=== PATIENT | female | born 1935 | race Caucasian/White ===

== ENCOUNTER 2018-10-21 06:06 | Inpatient (IN) | payer MEDICARE, SELFPAY ==
[2018-10-06 08:32] VITALS: BMI 27.5
[2018-10-21] VITALS (17 sets, daily range): BP systolic 100–141; BP diastolic 39–68; PULSE 62–86; RESP 8–21; TEMP 36.1–36.9; O2SAT 93–100; BMI 27.5
--- NOTE | 2018-10-21 | DI.RAD.S_ITS ---
PROCEDURE: XR LUMBAR SPINE 2-3V INDICATIONS: L1-L5 XLIF, L5-S1 TLIF TECHNIQUE: 4 intraoperative fluoroscopic views of the lumbar spine were acquired. COMPARISON: None. FINDINGS: Intraoperative fluoroscopic images of lumbar spine shows intervertebral spacer is present at L2-3, L3-4 and L4-5 levels. There is a metallic intervertebral spacer placement at L5-S1 level. Left transpedicular screws are noted at L5-S1 level. IMPRESSION: Fluoroscopy guidance was provided intraoperatively for fusion of lumbar spine as above. Dictated by: Jonah Barton M.D. on 10/21/2018 at 12:43 Approved by: Jonah Barton M.D. on 10/21/2018 at 12:44
[2018-10-21] MEDS: LACTATED RINGERS 1,000 ML 42 ML IV ×2 (06:45→10:07)
--- NOTE | 2018-10-21 07:33 | PM.PREOP ---
Pre-operative Note Interval Note Pre-op Check: Yes History & Physical Reviewed by Physician and Yes Exam Performed Changes: No
[2018-10-21] MEDS: CEFAZOLIN 2 GM/100 ML FROZ.PIGGY IV ×3 (07:55→21:50)
[2018-10-21] MEDS: GENTAMICIN 80 MG in SODIUM CHLORIDE 0.9% 1,000 ML 12024 MG IRR (08:30)
--- NOTE | 2018-10-21 08:41 | SUR.OPER ---
Left lateral on padded OR table. Head on pillow, gel axillary roll, pillow to support right arm. Legs flexed, pillows between legs, gel pad under down leg and ankle. Multiple passes of 3 inch cloth tape across shoulder, hip, upper and lower legs to secure patient on OR table.
[2018-10-21] MEDS: SODIUM CHLORIDE 0.9% 1,000 ML, GENTAMICIN 80 MG IRR (08:52)
[2018-10-21] MEDS: ACETAMINOPHEN IV 1,000 MG/100 ML VIAL 400 MG IV (11:01)
[2018-10-21] MEDS: THROMBIN (BOVINE) 5,000 UNIT VIAL 5000 UNIT TOP (11:24)
[2018-10-21] MEDS: BUPIVACAINE 0.5% (PF) 4 ML, MORPHINE-PF 4 MG, BUTORPHANOL 1 MG, fentaNYL 100 MCG INJ (11:25)
[2018-10-21] MEDS: VANCOMYCIN 1,000 MG VIAL 1000 MG TOP (11:25)
--- NOTE | 2018-10-21 12:16 | PM.OP.1 ---
Operative Date/Time/Diagnoses Date of procedure: 10/21/18 Time of procedure: 12:24 Pre-op diagnosis: Lumbar stenosis with radiculopathy Lumbar scoliosis Post-op diagnosis: same Procedure & Clinicians Procedure: L1-2, L2-3, L3-4, L4-5 anterior fusion with cages L5-S1 TLIF (post/post innerbody fusion) with cage icbg microscope Placement of epidural catheter Same procedure as scheduled: Yes Indications: [age] year old female with intractable pain from stenosis and scoliosis. They had failed conservative management and requested operative intervention. Risks and benefits of surgery were discussed and appropriate consents were obtained. Surgeon: Timbo Goldberg Climate Change Risk Assessor: Radha Burgess Anesthesia Type: General Operative Notes Findings: none Closure Type: primary Specimen(s): none sent Implants & Drains: NuVasive XLIF cages NuVasive Reline MAS screws Globus Rise cage Applied: catheter Estimated Blood Loss (mL): 50 Blood products transfused: none Procedure in detail: Patient was brought to the operating room and intubated on the table. Time-out was performed. They were then rolled over to the lateral decubitus position with the [id number]. The table was bent and they were taped down in the correct position. X-rays were taken to confirm a true AP and lateral. Preoperative antibiotics were given. The right flank was prepped and draped in standard sterile fashion. Using fluoroscopy, a 3 cm incision was made above the iliac crest. We bluntly dissected down with Metzenbaum scissors and split the 3 abdominal muscle layers. We dissected out the retroperitoneal space and using finger guidance, brought our 1st dilator down to the psoas muscle. Using neuromonitoring and fluoroscopy, we placed it through the psoas onto the L4-5 disc space in an anterior position and gradually pulled the dilator posteriorly along the disc space. We placed our guidewire and measured our depth for the retractor. We then dilated with the next 2 dilators and then placed our retractor over the dilators. Position was confirmed with fluoroscopy and the retractor was locked down to the bar. We opened up the retractor and checked with neuro monitoring. We then placed the ella and again checked with neuro monitoring. The retractor was opened further and the ALL retractor was placed. An annulotomy was performed. We then performed a complete diskectomy with ring curette, pituitary, box osteotome. A Hayward was advanced across the disc space under fluoroscopy to release the lateral annulus on the opposite side. We then used sequentially larger trials and confirmed under fluoroscopy. An XLIF cage was packed with Osteocell bone graft and impacted into the L4-5 disc space with fluoroscopy for the anterior fusion at this level. The wound was irrigated. The retractor was closed down. The ella was removed. We carefully removed the retractor with direct visualization to make sure there was no neurovascular or abdominal injury. We then sequentially did the same procedure at L3-4, L2-3, and L1-2. We used monitoring and fluoroscopy to place our dilator, opened up the retractor, performed our lateral release, trialed, and placed our cages full of bone graft for the anterior fusion at L1-2, L2-3, L3-4. We carefully removed the retractor with direct visualization after each procedure. Final x-rays were taken. The muscle fascia was closed, superficial tissue was closed. The skin was closed. Sterile dressing was placed. The patient was then rolled over on the well-padded prone position on the Nicolas table. Using fluoroscopy for localization, a 4 cm incision was made to the left of the midline. Bovie used to come down to and split the fascia. We then used monitoring and fluoroscopy to percutaneously placed Jamshidi needles down the left pedicles of L5 and S1. These were switched to guidewires and then tapped and then the MAS Reline screws were placed. We opened up the retractor and cleared off medially as well as the posterolateral gutter. The bur was used to decorticate the sacral ala and the L5 transverse process. We then brought the microscope. A combination of bur and Kerrisons were used to perform a left-sided laminectomy at L5-S1. We had to do a complete facetectomy to be able to open up the neural foramen. At the end the central canal and the foramen were open. We then began the prep for the interbody work. Nerve root retractor was used to carefully retract the dura and the S1 nerve root. Bipolar was used for hemostasis. We performed an annulotomy. We then used a combination of paddles, Christos, pituitaries, and curettes performed a complete diskectomy at L5-S1. We placed Osteocel bone graft into the anterior disc space. We then measured and placed the globus Rise cage and expanded it under fluoroscopy. This completed the posterior innerbody portion of the TLIF. The wound was copiously irrigated. A small stab incision was made over the PSIS and a Jamshidi needle was placed into the iliac crest and several mL of bone marrow was aspirated. This was mixed with our locally harvested bone graft as well as the remaining Osteocell and placed in the posterolateral gutter for posterolateral portion of the TLIF fusion at L5-S1. An epidural catheter was primed with 4mL of 0.5% bupivacaine, 100 mcg fentanyl, 4 mg Duramorph, 1 mg Stadol. The dura was depressed under the cephalad lamina with a ball probe and the epidural catheter was gently advanced 6 cm cephalad. The fascia was then closed. The epidural was then injected without resistance. The catheter was pulled and we closed more over the fascia. Vancomycin powder was placed in the wound. The superficial and skin were closed. Sterile dressing was placed. The patient was then rolled over, extubated, brought to the recovery room with no complications. Complications: none Condition: stable Disposition: PACU Plan for aftercare: Inpatient. Up with physical therapy. Plan to return in 2 days for the posterior instrumentation and fusion.
[2018-10-21] MEDS: ONDANSETRON 4 MG/2 ML INJ IV ×2 (13:03→16:15)
[2018-10-21] MEDS: fentaNYL 100 MCG/2 ML INJ 50 MCG IV ×2 (13:03→13:09)
[2018-10-21] MEDS: HYDROMORPHONE 2 MG INJ 0.5 MG IV ×3 (13:17→13:37)
[2018-10-21] MEDS: LACTATED RINGERS 1,000 ML 125 ML IV ×2 (14:48→22:06)
--- NOTE | 2018-10-21 14:51 | CM.DANOTE ---
DCP: Case received, EMR reviewed and met with patient. Introduced self and role. DCP template completed with information currently available. Patient is an 82 year old female who admitted early this morning to the care of the hospitalist team. PCP: Dr. Silva. Payer: confirmed: Medicare/[employer] Patient came to hospital for procedure. Is having two surgeries. Just had stage 1, L1-5 fusion. Will have state 2, T10-S1 fusion on . Met with patient briefly, just got out of recovery room, post surgery. Pleasant. Daughter, KIRA Angel, in room. Her phone number is [phone]. Her cell is [phone]. Patient does live at home with her spouse, but he was not in room. According to daughter, patient has been independent at home, no cane or walker. Patient lives in [facility], daughter lives in [facility]. P: DCP to follow closely. To be determined if patient may need long-term, will depend on progress here in hospital. Heather Keen RN/[employer]
--- NOTE | 2018-10-21 15:02 | PC.NURSE ---
Pt drowsy, but easily aroused and appropriate. Rates pain to back 4/10. Able to wiggle toes. SCD's on. C/O nausea, no emesis. Bed alarm placed.
--- NOTE | 2018-10-21 15:12 | PT.IPTN ---
Current Diagnoses Scoliosis, unspecified (10/21/18) Spinal stenosis, lumbar region with neurogenic claudication (10/21/18) Surgery Performed Operation Date: 10/21/18 07:45 Actual Procedures p L1-2, L2-3, L3-4, L4-5 Anterior Instrumented Fusion, L5-S1 Posterior Instrumented Fusion w/ Bone Graft - Timbo Goldberg MD Operation Date: 10/23/18 07:45 <No data on this case meets the specified criteria> Physical Therapy Treatment Note M3 PT-IP Subjective Start: 10/21/18 15:09 Freq: NEEDED Status: Active Protocol: Document 10/21/18 15:11 AB (Rec: 10/21/18 15:12 AB [id number]) Subjective Physical Therapy Visit Type Type Patient Refusal Notes checked on pt and daughter also present. pt stated that she is not ready for therapy; that therapy is the last thing she wants to do right now. daughter stated that the doctor told pt's that she will start therapy today and not today. will f/u tomorrow.
[2018-10-21] MEDS: OXYCODONE/ACETAMINOPHEN 5/325 TABLET 1 TAB PO (17:22)
[2018-10-21] MEDS: hydrOXYzine pamoate 25 MG CAPSULE PO (19:10)
[2018-10-21] MEDS: METOCLOPRAMIDE 10 MG/2 ML INJ IV (19:10)
[2018-10-21] MEDS: HYDROMORPHONE 0.5 MG INJ IV ×2 (19:14→22:04)
[2018-10-21] MEDS: GABAPENTIN 300 MG CAPSULE PO (21:50)
[2018-10-21] MEDS: CELECOXIB 200 MG CAPSULE PO (21:50)
--- NOTE | 2018-10-21 23:20 | PC.NURSE ---
Post-op VS are stable tonight, 1L O2 saturation 95-100% depending on activity, using IS to 1250. Dozing at times, rates pain to back at 7 or 8, medicated with 1 tab Percocet earlier tonight, she then tried to eat a few bites of dinner & a vanilla pudding & had emesis shortly after. After that patient medicated with Reglan, one Vistaril and Dilaudid 0.5 mg IV. Since then she has been observed dozing more comfortably, still reports intermittent waves of nausea. She told this nurse that she has had projectile vomiting a long time ago after receiving Morphine. Repositioned q1-2 hours per request, logrolling technique and other post-op back surgery precautions explained. Fall precautions in place, patient legally blind but able to see nurse call button and has been calling appropriately. Requests door be left open, signage placed on door.
[2018-10-22] VITALS (8 sets, daily range): BP systolic 99–129; BP diastolic 39–70; PULSE 92–104; RESP 16–21; TEMP 36.4–37.1; O2SAT 95–100
[2018-10-22] MEDS: hydrOXYzine pamoate 25 MG CAPSULE PO ×2 (00:04→12:38)
[2018-10-22] MEDS: HYDROMORPHONE 0.5 MG INJ IV ×2 (00:08→02:57)
[2018-10-22] MEDS: METOCLOPRAMIDE 10 MG/2 ML INJ IV (00:25)
[2018-10-22] MEDS: CEFAZOLIN 2 GM/100 ML FROZ.PIGGY IV (03:01)
[2018-10-22 06:06] LABS: Hematocrit 34.6 % (36-46); Hemoglobin 11.5 g/dL (12.0-16.0)
[2018-10-22] MEDS: LACTATED RINGERS 1,000 ML 125 ML IV (06:26)
--- NOTE | 2018-10-22 08:10 | PM.PNPO.1 ---
Subjective Date Patient Seen: 10/22/18 Time Patient Seen: 08:10 Interval history: Rough night but now pain minimal at rest. Exam Vital Signs (past 8 hours): - 10/22/18 00:30 10/22/18 01:00 10/22/18 06:15 Temperature 97.5 F L 97.6 F Pulse Rate 92 H 97 H Respiratory Rate 17 16 Blood Pressure 129/54 L 107/49 L Pulse Oximetry 100 97 97 Oxygen Delivery Method Room Air Oxygen Flow Rate 0 Const Orientation: alert and oriented x3 Back/Spine/Pelvis Other: CDI 5/5 motor BLE except 4/5 R hip flexor Objective Labs Result Diagrams: 10/22/18 05:43 Labs: Laboratory Results - last 24 hr 10/22/18 05:43 Hgb 11.5 L Hct 34.6 L Assessment & Plan Post-op Postoperative Procedures Operation Date: 10/21/18 07:45 Actual Procedures Side Surgeon p L1-2, L2-3, L3-4, L4-5 Anterior Instrumented Fusion, L5-S1 Posterior Instrumented Fusion w/ Bone Graft Timbo Goldberg MD She is stable after stage I of surgery. Mobilize today. Return to OR tomorrow for posterior instrumented fusion. NPO after MN. Risks and benefits again discussed and consent signed. Operation Date: 10/23/18 07:45 <No data on this case meets the specified criteria> Quality VTE Deep Vein Thrombosis/Pulmonary Embolism Present on Admission: No
[2018-10-22] MEDS: OXYCODONE/ACETAMINOPHEN 5/325 TABLET 1 TAB PO ×3 (10:00→20:40)
[2018-10-22] MEDS: CELECOXIB 200 MG CAPSULE PO ×2 (10:02→20:41)
[2018-10-22] MEDS: DOCUSATE 100 MG CAPSULE PO ×2 (10:02→20:41)
[2018-10-22] MEDS: LISINOPRIL 10 MG TABLET PO (10:03)
[2018-10-22] MEDS: hydroCHLOROthiazide 12.5 MG CAPSULE PO (10:03)
--- NOTE | 2018-10-22 11:35 | OT.IP.TRT ---
Addendum entered and electronically signed by Ananya Encinas OT 10/22/18 13:20: Correction: second stage of pt's surgery to be done 10/23/18 not 11/02/18. Original Note: Current Diagnoses Scoliosis, unspecified (10/21/18) Spinal stenosis, lumbar region with neurogenic claudication (10/21/18) Surgery Performed Operation Date: 10/21/18 07:45 Actual Procedures p L1-2, L2-3, L3-4, L4-5 Anterior Instrumented Fusion, L5-S1 Posterior Instrumented Fusion w/ Bone Graft - Timbo Goldberg MD Operation Date: 10/23/18 07:45 <No data on this case meets the specified criteria> Occupational Therapy Treatment Note M3 OT- IP Subjective and Pain Start: 10/22/18 11:39 Freq: Status: Active Protocol: Document 10/22/18 11:39 PJM (Rec: 10/22/18 11:47 [id number]) OT- Subjective Occupational Therapy Visit Type Type Administrative Note Visit Start Time 11:35 Notes OT referral received on this 82 yr old pt admitted for 2 stage multi-level lumbar surgery. Pt had anterior portion done yesterday. Will hold OT eval until after second stage of surgery completed on 11/02/18. No charge.
--- NOTE | 2018-10-22 13:09 | PT.IIE ---
Current Diagnoses Scoliosis, unspecified (10/21/18) Spinal stenosis, lumbar region with neurogenic claudication (10/21/18) Surgery Performed Operation Date: 10/21/18 07:45 Actual Procedures p L1-2, L2-3, L3-4, L4-5 Anterior Instrumented Fusion, L5-S1 Posterior Instrumented Fusion w/ Bone Graft - Timbo Goldberg MD Operation Date: 10/23/18 07:45 <No data on this case meets the specified criteria> Surgical History (Last Updated 10/06/18 @ 09:10 by Kindra Light RN) H/O knee surgery (Acute) H/O knee surgery (Acute) History of appendectomy (Acute) History of bunionectomy of left great toe (Acute) Medical History (Last Updated 10/06/18 @ 09:31 by Kindra Light RN) Back pain (Acute) Cataract fragments in both eyes following surgery (Acute ~1999) Chest pain (Acute) Colon cancer (Acute ~2008) DDD (degenerative disc disease) (Acute) DJD (degenerative joint disease) (Acute) Diarrhea (Acute) Esophageal dysmotility (Acute ~03/2007) Eye anomaly, congenital (Acute) Fatigue (Acute) Fractures (Acute ~03/2008) GERD (gastroesophageal reflux disease) (Acute) Globus hystericus (Acute) Hip pain (Acute) History of UTI (Acute) History of hysterectomy (Acute) Hypertension (Acute) IBS (irritable bowel syndrome) (Acute) Knee pain, left (Acute) Legally blind (Acute) Osteoarthritis (Acute) PVC (premature ventricular contraction) (Acute) Sciatica (Acute) Scoliosis of lumbar spine (Acute) Spinal stenosis of lumbar region with neurogenic claudication (Acute) Physical Therapy Inpatient Evaluation/Re-Eval M1 PT/OT-IP Prior Functional Status Start: 10/21/18 15:09 Freq: NEEDED Status: Active Protocol: Document 10/22/18 12:53 (Rec: 10/22/18 13:05 [id number]) Medical Review Prior Functional Status Medical History Reviewed Yes Mobility and Gait Independent without AD Activities of Daily Living and IADL's Independent without AD Required assistance from for house cleaning due to chronic LBP Social History Household Members spouse Living Arrangements House Number of Floors (Floors) Two Floors Number of Stairs To Enter/Railing? no steps to enter Home Environment Standard Height Toilet Walk in Shower Home Equipment Front Wheel Walker Employment Status Retired Additional Social History Comment Pt was active prior to surgery . 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[place] [id number] PT-IP Current Condition Start: 10/21/18 15:09 Freq: NEEDED Status: Active Protocol: Document 10/22/18 12:53 HH (Rec: 10/22/18 13:05 [id number]) Physical Therapy Current Condition Current Condition Evaluation Date 10/22/18 Treatment Diagnosis s/p L1-2, L2-3, L3-4, L4-5 anterior fusion with cages Onset Date 10/21/18 Precautions Lumbar Precautions Log Roll No Twisting Limit Bending Lifting Restriction of 10 lbs M3 PT-IP Subjective Start: 10/21/18 15:09 Freq: NEEDED Status: Active Protocol: Document 10/22/18 10:00 HH (Rec: 10/22/18 11:34 [id number]) Subjective Physical Therapy Visit Type Type Initial Evaluation Visit Start Time 10:00 Visit Stop Time 10:50 Total Visit Minutes 50 Physical Therapy Visit Comments Patient Comments Pt c/o R abdominal pain around surgical site 03/27 & L LBP . Pt reports she feels drowsy and dizzy this morning. Pt has not been getting OOB since Sx yesterday. Patient Goals To be pain free for ADLs and IADLs Return to be a dance class teacher Therapy Pain Assessment Pain When Pain Assessed At Rest Pain Present Pain Present Pain Reported Location Right Lower Abdomen Intensity 5 Scale Used Numeric (1 - 10) Description Dull Back Intensity 4 Scale Used Numeric (1 - 10) Description Dull M4 PT-IP Mobility and Gait Start: 10/21/18 15:09 Freq: NEEDED Status: Active Protocol: Document 10/22/18 10:00 HH (Rec: 10/22/18 11:34 [id number]) PT-Bed Mobility Assessment Rolling Type of Rolling Log Rolling Bilateral Level of Assist Minimal Assistance Supine to Sit Supine to Sit Moderate Assistance Sit to Supine Sit to Supine Moderate Assistance Scooting Scooting to Edge of Bed Minimal Assistance Scooting Up and Down in Bed Minimal Assistance PT-Transfer Assessment Sit to and From Stand Sit to and from Stand Minimal Assistance Equipment Transfer Assistive Device Front Wheeled Walker Transfers Transfer Destination Bed Transfer Ability Level of Assist Minimal Assistance Comments Mobility Comments Pt reports weakness at her R LE > L LE. Pt requests to rest after standing for 30 secs. Gait Assessment Comments Gait Comments Pt did not amb this morning due to weakness and LBP. Pt was able to maintain static standing for ~30secs but she then requested to sit down due to fatigue. Stair Climbing Assessment Comments Stair Climbing Comments Pt did not amb this morning due to fatigue and weakness PT-Balance Assessment Sitting Balance and Reactions Static Sitting Balance Ability Good Dynamic Sitting Balance Ability Good Standing Balance and Reactions Static Standing Balance Ability Fair Dynamic Standing Balance Ability Poor M5 PT-IP Objective Assessments Start: 10/21/18 15:09 Freq: NEEDED Status: Active Protocol: Document 10/22/18 10:00 (Rec: 10/22/18 11:34 [id number]) Orientation Orientation/Cognition Level of Alertness Alert Orientation Name Age Birthday Month Date Year Day of Week Place Situation Language Function Ability No Deficits Noted Safety Awareness Understands Safety Issues Gross Range of Motion Upper Extremity ROM Assessment Within Functional Limits Lower Extremity ROM Assessment Right Impaired Impairments Post op precaution: BLT Strength Upper Extremity Strength Assessment Within Functional Limits Lower Extremity Strength Assessment Right Impaired Comments Strength Comments 2- for gross R LE MMT Coordination Assessment Gross Coordination Gross Coordination WNL Sensation Assessment Sensation Gross Sensation WNL Comments Sensation Comments Pt reports no senstional differences for LT and pressure to BLE M6 PT-IP Treatment Start: 10/21/18 15:09 Freq: NEEDED Status: Active Protocol: Document 10/22/18 10:00 (Rec: 10/22/18 11:34 [id number]) Physical Therapy Treatment Exercises Exercises Ankle Pumps Gluteal Sets Quad Sets Heel Slides Supine Hip Abduction Education Education Provided Precautions Safety Other Treatments Other Treatment Performed Log roll to L and R with min A supine to sit and sit to supine with mod A sit to stand x 1 with min A M7 PT-IP Assessment and Plan Start: 10/21/18 15:09 Freq: NEEDED Status: Active Protocol: Document 10/22/18 10:00 (Rec: 10/22/18 11:34 [id number]) PT Summary Assessment and Plan Potential Rehabilitation Potential Good Status of Condition at Evaluation Evolving Summary Impairments Pain ROM Strength Balance Bed Mobility Transfers Gait Activity Tolerance Assessment Summary Pt is a 82 yo female s/p L1-2, L2-3, L3-4, L4-5 anterior fusion with cages on 10/21/18 due to Lumbar stenosis with radiculopathy & Lumbar scoliosis. Pt was also scheduled to receive Pt was seen bedside today with her . Pt is A&O x 4. Pt c/o L LBP 4/10 and R abdominal pain 5/10 today. Pt was pleasant and motivated to reach back to PLOF. Upon assessment, Pt was able to perform B ankle pumps and full heel slide on L LE and 1/2 heel slide on R LE in supine. BP in supine = 104/50 HR 104. Pt and her were educated post op precautions ( BLT). Log roll was then performed with min A; supine to sit with mod A to EOB. Pt reports increased LBP to 6-7/ 10 in sitting. She was then instructed to perform sit to stand with the use FWW with min A. Pt was able to maintain standing position x 30 secs but she then requested to rest due to R LE weakness. Pt Pt did not amb this morning due to weakness and LBP. Pt was able to maintain static standing for ~30secs but she then requested to sit down due to fatigue. Pt appeared nervous and worried after due to I feel weak and I know this sx is going to be tough. Pt's BP= 162/93 HR= 187. Pt was then instructed to sit to supine followed by diaphragmatic breathing. BP went back to baseline 111/70 SC=863 after 5mins. Pt was then educated with in bed therex including ankle pumps, quads set, heel slides and supine hip abduction. Pt was able to perform full heel slide on R side after tx session. Communicated with HARRIS Spence regarding Pt's BP during tx session. Recommended to reposition pt and sit EOB every 2 hours to avoid pressure ulcer with the use of log roll. Pt potentially requires longer rehab due to 2nd posterior fusion sx tomorrow. Recommend SNF, home care with 24/7 or home health depends on pt's rehab progress . Goals Bed Mobility Goal Independent Transfer Goal Independent Front Wheeled Walker Gait Goal Independent Front Wheel Walker Gait Distance >100 feet Days to Meet Goals 10 Frequency of Treatment Frequency Of Treatment Twice a Day Treatment Plan Physical Therapy Treatment Plan Bed Mobility Training Transfer Training Gait Training Therapeutic Exercise Balance Retraining Post Op Education Discharge Planning Hot or Cold Pack Neuromuscular Re-ed Manual Therapy Other Recommendations and Next Treatment Monitor BP in positional Focus changes Ice pad for pain management log roll and supine to sit sit to stand at EOB heel raise diaphragmatic breathing in standing Recommendations To Nursing Amount of Assist Needed 2 Person Assist Discharge Recommendations PT Discharge Recommendations Home with 24/ Assist Home Health SNF Rehab Other Discharge Recommendations D/C recommendation depends on pt's rehab progress and pt's capability to assit at home for ADLs and IADLs. Pt currently has significant generalized weakness for transfer and bed mobility due to post op and prolonged bed bound. Equipment Needed for Home Before 4 WW, SPC Discharge
--- NOTE | 2018-10-22 16:03 | PC.NURSE ---
Day Shift- Jo removed at 1015 without difficulty, voided X2 on bedpan post removal. OOB with PT, reported by PT, pt was standing at bedside, felt weak, BP elevated 160's/90s, pt got back to bed. Bedrest with use of bedpan for now until PT reassess. Percocet prn 1 tab given X2 for 3-6/10 pain, aching to left lower back and aching/sharpness to RLQ abd/flank. Pain controlled, Aware of NPO after might night for stage 2 surgery.
--- NOTE | 2018-10-22 16:14 | PT.IPTN ---
Current Diagnoses Scoliosis, unspecified (10/21/18) Spinal stenosis, lumbar region with neurogenic claudication (10/21/18) Surgery Performed Operation Date: 10/21/18 07:45 Actual Procedures p L1-2, L2-3, L3-4, L4-5 Anterior Instrumented Fusion, L5-S1 Posterior Instrumented Fusion w/ Bone Graft - Timbo Goldberg MD Operation Date: 10/23/18 07:45 <No data on this case meets the specified criteria> Physical Therapy Treatment Note M2 PT-IP Current Condition Start: 10/21/18 15:09 Freq: NEEDED Status: Active Protocol: Document 10/22/18 12:53 HH (Rec: 10/22/18 13:05 [id number]) Physical Therapy Current Condition Current Condition Evaluation Date 10/22/18 Treatment Diagnosis s/p L1-2, L2-3, L3-4, L4-5 anterior fusion with cages Onset Date 10/21/18 Precautions Lumbar Precautions Log Roll No Twisting Limit Bending Lifting Restriction of 10 lbs M3 PT-IP Subjective Start: 10/21/18 15:09 Freq: NEEDED Status: Active Protocol: Document 10/22/18 16:05 GGD (Rec: 10/22/18 16:14 GGD [id number]) Subjective Physical Therapy Visit Type Type Treatment Note Visit Start Time 15:40 Visit Stop Time 16:05 Total Visit Minutes 25 Number of UX CONSULTANT Visits 1 Therapy Pain Assessment Pain When Pain Assessed At Rest Pain Present Pain Present Pain Reported Location Back Intensity 4 Scale Used Numeric (1 - 10) M4 PT-IP Mobility and Gait Start: 10/21/18 15:09 Freq: NEEDED Status: Active Protocol: Document 10/22/18 16:05 GGD (Rec: 10/22/18 16:14 GGD [id number]) PT-Bed Mobility Assessment Rolling Type of Rolling Log Rolling Roll to Right Level of Assist Minimal Assistance Supine to Sit Supine to Sit Moderate Assistance 1 Person Assistance Sit to Supine Sit to Supine Maximum Assistance 1 Person Assistance Scooting Scooting to Edge of Bed Minimal Assistance PT-Transfer Assessment Sit to and From Stand Sit to and from Stand Contact Guard Assistance Use of Upper Extremities Equipment Transfer Assistive Device Gait Belt Front Wheeled Walker Orthotic/Prosthetic Devices or Brace: No Transfers Transfer Destination Bed Transfer Ability Level of Assist Moderate Assistance Comments Mobility Comments BP in supine 99/39, sitting 108/53, standing 103/39, supine after activity 123/60 Gait Assessment Gait Gait Assistance Required: Minimum Assistance 1 Person Assist Distance (Feet) 5 Able to Maintain Weight Bearing Status Yes During Gait Assistive Devices Assistive Device Gait Belt Front Wheeled Walker Orthotic/Prosthetic Devices or Brace: No Gait Deviations General Gait Pattern Decreased Stride Length Decreased Feet Clearance Flexed Trunk Factors Limiting Gait Function Factors Limiting Gait Function Decreased Activity Tolerance Decreased Strength Pain Poor Balance M5 PT-IP Objective Assessments Start: 10/21/18 15:09 Freq: NEEDED Status: Active Protocol: Document 10/22/18 10:00 (Rec: 10/22/18 11:34 [id number]) Orientation Orientation/Cognition Level of Alertness Alert Orientation Name Age Birthday Month Date Year Day of Week Place Situation Language Function Ability No Deficits Noted Safety Awareness Understands Safety Issues Gross Range of Motion Upper Extremity ROM Assessment Within Functional Limits Lower Extremity ROM Assessment Right Impaired Impairments Post op precaution: BLT Strength Upper Extremity Strength Assessment Within Functional Limits Lower Extremity Strength Assessment Right Impaired Comments Strength Comments 2- for gross R LE MMT Coordination Assessment Gross Coordination Gross Coordination WNL Sensation Assessment Sensation Gross Sensation WNL Comments Sensation Comments Pt reports no senstional differences for LT and pressure to BLE M6 PT-IP Treatment Start: 10/21/18 15:09 Freq: NEEDED Status: Active Protocol: Document 10/22/18 16:05 GGD (Rec: 10/22/18 16:14 GGD [id number]) Physical Therapy Treatment Education Education Provided Precautions M7 PT-IP Assessment and Plan Start: 10/21/18 15:09 Freq: NEEDED Status: Active Protocol: Document 10/22/18 16:05 GGD (Rec: 10/22/18 16:14 GGD [id number]) PT Summary Assessment and Plan Summary Assessment Summary Pt is progressing slowly. She was able to ambulate short distance, but C/O leg weakness . She did need assist with bed mobility for log roll. Frequency of Treatment Frequency Of Treatment Twice a Day Recommendations To Nursing Amount of Assist Needed 1 Person Assist Discharge Recommendations PT Discharge Recommendations Home with 24/ Assist SNF Rehab
[2018-10-22] MEDS: GABAPENTIN 300 MG CAPSULE PO (20:41)
[2018-10-22] MEDS: SENNOSIDES 8.6 MG TABLET 17.2 MG PO (20:41)
[2018-10-23] VITALS (23 sets, daily range): BP systolic 101–162; BP diastolic 31–80; PULSE 75–156; RESP 10–18; TEMP 36.1–36.8; O2SAT 92–100; BMI 27.5
--- NOTE | 2018-10-23 | DI.RAD.S_ITS ---
PROCEDURE: XR LUMBAR SPINE 2-3V INDICATIONS: T-10 THRU S-1 TLIF TECHNIQUE: 6 views of the lumbar spine were acquired. COMPARISON: [facility], , XR LUMBAR SPINE 2-3V, 10/21/2018, 8:16. FINDINGS: 6 intraoperative fluoroscopy images were obtained demonstrating posterior fusion at T10-S1. Previous hysterectomy at L2-L3, L3-L4, L4-L5 and L5-S1. Pedicular screws and fusion rods are in expected position. IMPRESSION: Posterior fusion at T10-S1. Dictated by: Ayah Ortega M.D. on 10/23/2018 at 11:56 Approved by: Ayah Ortega M.D. on 10/23/2018 at 12:00
[2018-10-23] MEDS: OXYCODONE/ACETAMINOPHEN 5/325 TABLET 1 TAB PO ×2 (00:38→05:02)
--- NOTE | 2018-10-23 07:35 | PM.PREOP ---
Pre-operative Note Interval Note Pre-op Check: Yes History & Physical Reviewed by Physician and Yes Exam Performed Changes: No
[2018-10-23] MEDS: LACTATED RINGERS 1,000 ML 42 ML IV (07:37)
--- NOTE | 2018-10-23 07:39 | P.OP_ITS ---
Operative Date/Time/Diagnoses Date of procedure: 10/23/18 Time of procedure: 11:28 Pre-op diagnosis: Lumbar stenosis with radiculopathy Lumbar scoliosis Post-op diagnosis: same Procedure & Clinicians Procedure: T10 through S1 posterior fusion T10 through S1 posterior instrumentation Iliac crest bone graft placement of epidural catheter Same procedure as scheduled: Yes Indications: 82-year-old female with scoliosis and stenosis. She had stage I of her surgery 2 days ago and is returning for stage II today. Risks and benefits of surgery discussed appropriate consents were obtained. Surgeon: Timbo Goldberg Stacker Straightener: Radha Burgess Anesthesia Type: General Operative Notes Findings: None Closure Type: primary Specimen(s): none sent Implants & Drains: NuVasive MAS Reline screws Applied: catheter Estimated Blood Loss (mL): 100 Procedure in detail: Patient was brought to the operating room and intubated on the stretcher. The rolled over to the well-padded prone position on the Nicolas table. A time-out was performed. Antibiotics were given. Back was prepped and draped in the standard sterile fashion. Using fluoroscopy for localization, two 40 cm incisions were made on each side of the midline. Bovie used to come down to and split the fascia. We then percutaneously placed Jamshidi needles down the bilateral pedicles of T10 through S1 (except at the previously placed L5 and S1 on the left) using fluoroscopy and neural monitoring. We changed these out to guidewires. We dissected down through the soft tissue on the left side to expose the posterolateral gutter with transverse processes through the lumbar spine as well as the posterior aspect of the thoracic spine. We used a bur to decorticate the facets and posterior lamina and transverse processes. This completed the preparation for the fusion. We then placed our screws over the guidewires. We then took our rods and conformed them. They were placed into the screws and tightened down after using spreaders on the left side to open the curve. The towers were removed and final x-rays were taken. The wounds were irrigated. A small stab incision was made over the left PSIS and Jamshidi needle was inserted into the iliac crest. 10 mL of bone marrow was aspirated through this. This was then mixed with Osteocell and bone chips and placed in the posterior and posterolateral gutter for the posterior fusion from T10 to S1. At L5-S1 on the left, we opened up down to the dura again. An epidural catheter was primed with 4 mg of morphine, 1 mg stable, 4 mL of 0.5% Marcaine and 100 mcg of fentanyl. This was advanced up underneath the L4 lamina. We then closed off all fascial layers. The epidural was injected without resistance and then removed. The superficial tissues closed then the skin was closed. Sterile dressings were placed. She was then rolled over, extubated, and brought to recovery room without complications. Complications: none Condition: stable Disposition: PACU Plan for aftercare: Inpatient. Up with physical therapy.
[2018-10-23] MEDS: CEFAZOLIN VIAL 1 GM in SODIUM CHLORIDE 0.9% 100 ML 200 ML IV (08:00)
--- NOTE | 2018-10-23 08:30 | OT.IP.TRT ---
Current Diagnoses Scoliosis, unspecified (10/21/18) Spinal stenosis, lumbar region with neurogenic claudication (10/21/18) Surgery Performed Operation Date: 10/21/18 07:45 Actual Procedures p L1-2, L2-3, L3-4, L4-5 Anterior Instrumented Fusion, L5-S1 Posterior Instrumented Fusion w/ Bone Graft - Timbo Goldberg MD Operation Date: 10/23/18 07:45 Actual Procedures p T10-L1,L1-2,L2-3,L3-4,L4-5, L5-S1 Posterior Instru. Fusion w/bone graft - Timbo Goldberg MD Occupational Therapy Treatment Note M3 OT- IP Subjective and Pain Start: 10/22/18 11:39 Freq: Status: Active Protocol: Document 10/23/18 08:30 PJM (Rec: 10/24/18 12:21 PJM [id number]) OT- Subjective Occupational Therapy Visit Type Type Administrative Note Occupational Therapy Visit Comments Patient Comments Pt to surgery today for second stage of lumbar fusion. Will await post op OT orders. No charge.
--- NOTE | 2018-10-23 08:39 | SUR.OPER ---
Prone on spine table, head in foam head support, padded chest and pelvic supports, gel pad at knees, lower legs supported by pillows; nipples, genitalia and toes free of pressure, arms secured on foam padded arm boards at <90 degrees abduction. Tape over blanket at thigh and lower legs secured to table.
--- NOTE | 2018-10-23 09:00 | PT.IPTN ---
Current Diagnoses Scoliosis, unspecified (10/21/18) Spinal stenosis, lumbar region with neurogenic claudication (10/21/18) Surgery Performed Operation Date: 10/21/18 07:45 Actual Procedures p L1-2, L2-3, L3-4, L4-5 Anterior Instrumented Fusion, L5-S1 Posterior Instrumented Fusion w/ Bone Graft - Timbo Goldberg MD Operation Date: 10/23/18 07:45 Actual Procedures p T10-L1,L1-2,L2-3,L3-4,L4-5, L5-S1 Posterior Instru. Fusion w/bone graft - Timbo Goldberg MD Physical Therapy Treatment Note M2 PT-IP Current Condition Start: 10/21/18 15:09 Freq: NEEDED Status: Active Protocol: Document 10/22/18 12:53 HH (Rec: 10/22/18 13:05 HH [id number]) Physical Therapy Current Condition Current Condition Evaluation Date 10/22/18 Treatment Diagnosis s/p L1-2, L2-3, L3-4, L4-5 anterior fusion with cages Onset Date 10/21/18 Precautions Lumbar Precautions Log Roll No Twisting Limit Bending Lifting Restriction of 10 lbs M3 PT-IP Subjective Start: 10/21/18 15:09 Freq: NEEDED Status: Active Protocol: Document 10/23/18 09:00 AB (Rec: 10/24/18 12:22 AB [id number]) Subjective Physical Therapy Visit Type Notes pt is having her part 2 back surgery this morning. PT tx on hold. M4 PT-IP Mobility and Gait Start: 10/21/18 15:09 Freq: NEEDED Status: Active Protocol: Document 10/22/18 16:05 GGD (Rec: 10/22/18 16:14 GGD [id number]) PT-Bed Mobility Assessment Rolling Type of Rolling Log Rolling Roll to Right Level of Assist Minimal Assistance Supine to Sit Supine to Sit Moderate Assistance 1 Person Assistance Sit to Supine Sit to Supine Maximum Assistance 1 Person Assistance Scooting Scooting to Edge of Bed Minimal Assistance PT-Transfer Assessment Sit to and From Stand Sit to and from Stand Contact Guard Assistance Use of Upper Extremities Equipment Transfer Assistive Device Gait Belt Front Wheeled Walker Orthotic/Prosthetic Devices or Brace: No Transfers Transfer Destination Bed Transfer Ability Level of Assist Moderate Assistance Comments Mobility Comments BP in supine 99/39, sitting 108/53, standing 103/39, supine after activity 123/60 Gait Assessment Gait Gait Assistance Required: Minimum Assistance 1 Person Assist Distance (Feet) 5 Able to Maintain Weight Bearing Status Yes During Gait Assistive Devices Assistive Device Gait Belt Front Wheeled Walker Orthotic/Prosthetic Devices or Brace: No Gait Deviations General Gait Pattern Decreased Stride Length Decreased Feet Clearance Flexed Trunk Factors Limiting Gait Function Factors Limiting Gait Function Decreased Activity Tolerance Decreased Strength Pain Poor Balance M5 PT-IP Objective Assessments Start: 10/21/18 15:09 Freq: NEEDED Status: Active Protocol: Document 10/22/18 10:00 (Rec: 10/22/18 11:34 [id number]) Orientation Orientation/Cognition Level of Alertness Alert Orientation Name Age Birthday Month Date Year Day of Week Place Situation Language Function Ability No Deficits Noted Safety Awareness Understands Safety Issues Gross Range of Motion Upper Extremity ROM Assessment Within Functional Limits Lower Extremity ROM Assessment Right Impaired Impairments Post op precaution: BLT Strength Upper Extremity Strength Assessment Within Functional Limits Lower Extremity Strength Assessment Right Impaired Comments Strength Comments 2- for gross R LE MMT Coordination Assessment Gross Coordination Gross Coordination WNL Sensation Assessment Sensation Gross Sensation WNL Comments Sensation Comments Pt reports no senstional differences for LT and pressure to BLE M6 PT-IP Treatment Start: 10/21/18 15:09 Freq: NEEDED Status: Active Protocol: Document 10/22/18 16:05 GGD (Rec: 10/22/18 16:14 GGD [id number]) Physical Therapy Treatment Education Education Provided Precautions M7 PT-IP Assessment and Plan Start: 10/21/18 15:09 Freq: NEEDED Status: Active Protocol: Document 10/22/18 16:05 GGD (Rec: 10/22/18 16:14 GGD [id number]) PT Summary Assessment and Plan Summary Assessment Summary Pt is progressing slowly. She was able to ambulate short distance, but C/O leg weakness . She did need assist with bed mobility for log roll. Frequency of Treatment Frequency Of Treatment Twice a Day Recommendations To Nursing Amount of Assist Needed 1 Person Assist Discharge Recommendations PT Discharge Recommendations Home with 24/ Assist SNF Rehab
[2018-10-23] MEDS: LACTATED RINGERS 1,000 ML 125 ML IV ×3 (09:31→22:23)
[2018-10-23] MEDS: SODIUM CHLORIDE 0.9% 1,000 ML, GENTAMICIN 80 MG IRR (09:35)
[2018-10-23] MEDS: BUPIVACAINE 0.5% (PF) 4 ML, MORPHINE-PF 4 MG, BUTORPHANOL 1 MG, fentaNYL 100 MCG INJ (10:57)
[2018-10-23] MEDS: VANCOMYCIN 1,000 MG VIAL 1000 MG TOP (11:00)
[2018-10-23] MEDS: ONDANSETRON 4 MG/2 ML INJ IV (11:55)
[2018-10-23] MEDS: fentaNYL 100 MCG/2 ML INJ 50 MCG IV (11:55)
[2018-10-23] MEDS: HYDROMORPHONE 2 MG INJ 0.5 MG IV (12:00)
[2018-10-23] MEDS: LORazepam 2 MG/ML SYRINGE 0.25 MG IV (12:10)
--- NOTE | 2018-10-23 12:13 | SUR.PHASEI ---
assumed care of pt at 1212 after receiving report from Anastasia Santoro RN.
[2018-10-23] MEDS: METOCLOPRAMIDE 10 MG/2 ML INJ IV (13:51)
[2018-10-23] MEDS: HYDROMORPHONE 1 MG INJ 0.2 MG IV ×2 (13:51→17:47)
[2018-10-23] MEDS: METOPROLOL TARTRATE 5 MG/5 ML INJ IV (14:46)
--- NOTE | 2018-10-23 15:02 | DI.RAD.S_ITS ---
PROCEDURE: XR CHEST 1V INDICATIONS: Superventricular tachycardia, post operative TECHNIQUE: One view of the chest was acquired. COMPARISON: [facility], CT, CT CHEST ABD PELVIS W CON, 10/05/2016, 9:47. FINDINGS: Surgical changes and devices: Postoperative changes are identified related to a thoracolumbar fusion. Skin flavio are noted. Lungs and pleura: There is increased attenuation identified at the bilateral lung bases with partial obscuration of the left diaphragm. No pneumothorax is evident. The perihilar pulmonary vascular markings are mildly increased. Mediastinum: Mediastinal contours appear normal. The heart is borderline enlarged. There is aortic atherosclerosis. Bones and chest wall: No suspicious bony lesions. Overlying soft tissues appear unremarkable. IMPRESSION: 1. Borderline cardiomegaly with mild vascular congestion. 2. Left basilar atelectasis versus small effusion. Dictated by: Brannon Tariq M.D. on 10/23/2018 at 14:30 Approved by: Brannon Tariq M.D. on 10/23/2018 at 14:31
[2018-10-23 15:31] LABS: Add Manual Diff / Slide Review NO; Basophils Percent Auto 0.1 % (0-2); Hematocrit 33.1 % (36-46); Lymphocytes Percent Auto 2.2 % (25-40); Mean Corpuscular HGB Conc 33.3 % (30-36); Mean Corpuscular Hemoglobin 30.5 PG (26-34); Mean Corpuscular Volume 91.5 fL (80-100); Neutrophils Absolute Auto 8700 /uL (3000-5900); Neutrophils Percent Auto 93.7 % (50-75); Platelet Count 143 X10^3/uL (150-400); Red Blood Cell Count 3.62 X10^6/uL (4.0-5.2); Red Cell Distribution Width 14.2 % (11.6-14.8); White Blood Cell Count 9.3 X10^3/uL (4.5-11.0)
[2018-10-23 15:43] LABS: Blood Urea Nitrogen 11 mg/dL (7-17); Calcium 8.3 mg/dL (8.4-10.2); Carbon Dioxide 28 mmol/L (22-32); Chloride 107 mmol/L (98-107); Creatine Kinase 1064 U/L (30-135); Estimated Glomerular Filt Rate > 60.0 mL/min (>60); Glucose 154 mg/dL (80-110); HEMOLYSIS < 15 (0-50); Magnesium 1.8 mg/dL (1.6-2.3); Phosphorous 3.3 mg/dL (2.8-4.1); Potassium 3.7 mmol/L (3.4-5.1); Sodium 141 mmol/L (137-145)
[2018-10-23 15:54] LABS: Troponin I 0.094 ng/mL (0.01-0.034)
--- NOTE | 2018-10-23 15:54 | PT.IIE ---
Current Diagnoses Scoliosis, unspecified (10/21/18) Spinal stenosis, lumbar region with neurogenic claudication (10/21/18) Surgery Performed Operation Date: 10/21/18 07:45 Actual Procedures p L1-2, L2-3, L3-4, L4-5 Anterior Instrumented Fusion, L5-S1 Posterior Instrumented Fusion w/ Bone Graft - Timbo Goldberg MD Operation Date: 10/23/18 07:45 Actual Procedures p T10-L1,L1-2,L2-3,L3-4,L4-5, L5-S1 Posterior Instru. Fusion w/bone graft - Timbo Goldberg MD Surgical History (Last Updated 10/06/18 @ 09:10 by Kindra Light, RN) H/O knee surgery (Acute) H/O knee surgery (Acute) History of appendectomy (Acute) History of bunionectomy of left great toe (Acute) Medical History (Last Updated 10/06/18 @ 09:31 by Kindra Light, RN) Back pain (Acute) Cataract fragments in both eyes following surgery (Acute ~1999) Chest pain (Acute) Colon cancer (Acute ~2008) DDD (degenerative disc disease) (Acute) DJD (degenerative joint disease) (Acute) Diarrhea (Acute) Esophageal dysmotility (Acute ~03/2007) Eye anomaly, congenital (Acute) Fatigue (Acute) Fractures (Acute ~03/2008) GERD (gastroesophageal reflux disease) (Acute) Globus hystericus (Acute) Hip pain (Acute) History of UTI (Acute) History of hysterectomy (Acute) Hypertension (Acute) IBS (irritable bowel syndrome) (Acute) Knee pain, left (Acute) Legally blind (Acute) Osteoarthritis (Acute) PVC (premature ventricular contraction) (Acute) Sciatica (Acute) Scoliosis of lumbar spine (Acute) Spinal stenosis of lumbar region with neurogenic claudication (Acute) Physical Therapy Inpatient Evaluation/Re-Eval M1 PT/OT-IP Prior Functional Status Start: 10/21/18 15:09 Freq: NEEDED Status: Active Protocol: Document 10/22/18 12:53 (Rec: 10/22/18 13:05 [id number]) Medical Review Prior Functional Status Medical History Reviewed Yes Mobility and Gait Independent without AD Activities of Daily Living and IADL's Independent without AD Required assistance from for house cleaning due to chronic LBP Social History Household Members spouse Living Arrangements House Number of Floors (Floors) Two Floors Number of Stairs To Enter/Railing? no steps to enter Home Environment Standard Height Toilet Walk in Shower Home Equipment Front Wheel Walker Employment Status Retired Additional Social History Comment Pt was active prior to surgery . 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[place] [address] PT-IP Current Condition Start: 10/21/18 15:09 Freq: NEEDED Status: Active Protocol: Document 10/22/18 12:53 (Rec: 10/22/18 13:05 [id number]) Physical Therapy Current Condition Current Condition Evaluation Date 10/22/18 Treatment Diagnosis s/p L1-2, L2-3, L3-4, L4-5 anterior fusion with cages Onset Date 10/21/18 Precautions Lumbar Precautions Log Roll No Twisting Limit Bending Lifting Restriction of 10 lbs M3 PT-IP Subjective Start: 10/21/18 15:09 Freq: NEEDED Status: Active Protocol: Document 10/22/18 16:05 GGD (Rec: 10/22/18 16:14 GGD [id number]) Subjective Physical Therapy Visit Type Type Treatment Note Visit Start Time 15:40 Visit Stop Time 16:05 Total Visit Minutes 25 Number of THERAPEUTIC CONSULTANT Visits 1 Therapy Pain Assessment Pain When Pain Assessed At Rest Pain Present Pain Present Pain Reported Location Back Intensity 4 Scale Used Numeric (1 - 10) M4 PT-IP Mobility and Gait Start: 10/21/18 15:09 Freq: NEEDED Status: Active Protocol: Document 10/22/18 16:05 GGD (Rec: 10/22/18 16:14 GGD [id number]) PT-Bed Mobility Assessment Rolling Type of Rolling Log Rolling Roll to Right Level of Assist Minimal Assistance Supine to Sit Supine to Sit Moderate Assistance 1 Person Assistance Sit to Supine Sit to Supine Maximum Assistance 1 Person Assistance Scooting Scooting to Edge of Bed Minimal Assistance PT-Transfer Assessment Sit to and From Stand Sit to and from Stand Contact Guard Assistance Use of Upper Extremities Equipment Transfer Assistive Device Gait Belt Front Wheeled Walker Orthotic/Prosthetic Devices or Brace: No Transfers Transfer Destination Bed Transfer Ability Level of Assist Moderate Assistance Comments Mobility Comments BP in supine 99/39, sitting 108/53, standing 103/39, supine after activity 123/60 Gait Assessment Gait Gait Assistance Required: Minimum Assistance 1 Person Assist Distance (Feet) 5 Able to Maintain Weight Bearing Status Yes During Gait Assistive Devices Assistive Device Gait Belt Front Wheeled Walker Orthotic/Prosthetic Devices or Brace: No Gait Deviations General Gait Pattern Decreased Stride Length Decreased Feet Clearance Flexed Trunk Factors Limiting Gait Function Factors Limiting Gait Function Decreased Activity Tolerance Decreased Strength Pain Poor Balance M5 PT-IP Objective Assessments Start: 10/21/18 15:09 Freq: NEEDED Status: Active Protocol: Document 10/22/18 10:00 HH (Rec: 10/22/18 11:34 HH [id number]) Orientation Orientation/Cognition Level of Alertness Alert Orientation Name Age Birthday Month Date Year Day of Week Place Situation Language Function Ability No Deficits Noted Safety Awareness Understands Safety Issues Gross Range of Motion Upper Extremity ROM Assessment Within Functional Limits Lower Extremity ROM Assessment Right Impaired Impairments Post op precaution: BLT Strength Upper Extremity Strength Assessment Within Functional Limits Lower Extremity Strength Assessment Right Impaired Comments Strength Comments 2- for gross R LE MMT Coordination Assessment Gross Coordination Gross Coordination WNL Sensation Assessment Sensation Gross Sensation WNL Comments Sensation Comments Pt reports no senstional differences for LT and pressure to BLE M6 PT-IP Treatment Start: 10/21/18 15:09 Freq: NEEDED Status: Active Protocol: Document 10/22/18 16:05 GGD (Rec: 10/22/18 16:14 GGD [id number]) Physical Therapy Treatment Education Education Provided Precautions M7 PT-IP Assessment and Plan Start: 10/21/18 15:09 Freq: NEEDED Status: Active Protocol: Document 10/22/18 16:05 GGD (Rec: 10/22/18 16:14 GGD [id number]) PT Summary Assessment and Plan Summary Assessment Summary Pt is progressing slowly. She was able to ambulate short distance, but C/O leg weakness . She did need assist with bed mobility for log roll. Frequency of Treatment Frequency Of Treatment Twice a Day Recommendations To Nursing Amount of Assist Needed 1 Person Assist Discharge Recommendations PT Discharge Recommendations Home with / Assist SNF Rehab
[2018-10-23 15:56] LABS: Lactate (Lactic Acid) 1.1 mmol/L (0.7-2.1)
[2018-10-23 15:57] LABS: CKMB % Relative Index 1.1 % (1.5-5.0)
--- NOTE | 2018-10-23 16:00 | PT.IPTN ---
Current Diagnoses Scoliosis, unspecified (10/21/18) Spinal stenosis, lumbar region with neurogenic claudication (10/21/18) Surgery Performed Operation Date: 10/21/18 07:45 Actual Procedures p L1-2, L2-3, L3-4, L4-5 Anterior Instrumented Fusion, L5-S1 Posterior Instrumented Fusion w/ Bone Graft - Timbo Goldberg MD Operation Date: 10/23/18 07:45 Actual Procedures p T10-L1,L1-2,L2-3,L3-4,L4-5, L5-S1 Posterior Instru. Fusion w/bone graft - Timbo Goldberg MD Physical Therapy Treatment Note M2 PT-IP Current Condition Start: 10/21/18 15:09 Freq: NEEDED Status: Active Protocol: Document 10/22/18 12:53 HH (Rec: 10/22/18 13:05 HH [id number]) Physical Therapy Current Condition Current Condition Evaluation Date 10/22/18 Treatment Diagnosis s/p L1-2, L2-3, L3-4, L4-5 anterior fusion with cages Onset Date 10/21/18 Precautions Lumbar Precautions Log Roll No Twisting Limit Bending Lifting Restriction of 10 lbs M3 PT-IP Subjective Start: 10/21/18 15:09 Freq: NEEDED Status: Active Protocol: Document 10/23/18 16:00 AB (Rec: 10/24/18 12:24 AB [id number]) Subjective Physical Therapy Visit Type Notes Pt got back from surgery but per nurse is having heart rate issues and will be transferring to the ICU. Pt tx on hold M4 PT-IP Mobility and Gait Start: 10/21/18 15:09 Freq: NEEDED Status: Active Protocol: Document 10/22/18 16:05 GGD (Rec: 10/22/18 16:14 GGD [id number]) PT-Bed Mobility Assessment Rolling Type of Rolling Log Rolling Roll to Right Level of Assist Minimal Assistance Supine to Sit Supine to Sit Moderate Assistance 1 Person Assistance Sit to Supine Sit to Supine Maximum Assistance 1 Person Assistance Scooting Scooting to Edge of Bed Minimal Assistance PT-Transfer Assessment Sit to and From Stand Sit to and from Stand Contact Guard Assistance Use of Upper Extremities Equipment Transfer Assistive Device Gait Belt Front Wheeled Walker Orthotic/Prosthetic Devices or Brace: No Transfers Transfer Destination Bed Transfer Ability Level of Assist Moderate Assistance Comments Mobility Comments BP in supine 99/39, sitting 108/53, standing 103/39, supine after activity 123/60 Gait Assessment Gait Gait Assistance Required: Minimum Assistance 1 Person Assist Distance (Feet) 5 Able to Maintain Weight Bearing Status Yes During Gait Assistive Devices Assistive Device Gait Belt Front Wheeled Walker Orthotic/Prosthetic Devices or Brace: No Gait Deviations General Gait Pattern Decreased Stride Length Decreased Feet Clearance Flexed Trunk Factors Limiting Gait Function Factors Limiting Gait Function Decreased Activity Tolerance Decreased Strength Pain Poor Balance M5 PT-IP Objective Assessments Start: 10/21/18 15:09 Freq: NEEDED Status: Active Protocol: Document 10/22/18 10:00 HH (Rec: 10/22/18 11:34 [id number]) Orientation Orientation/Cognition Level of Alertness Alert Orientation Name Age Birthday Month Date Year Day of Week Place Situation Language Function Ability No Deficits Noted Safety Awareness Understands Safety Issues Gross Range of Motion Upper Extremity ROM Assessment Within Functional Limits Lower Extremity ROM Assessment Right Impaired Impairments Post op precaution: BLT Strength Upper Extremity Strength Assessment Within Functional Limits Lower Extremity Strength Assessment Right Impaired Comments Strength Comments 2- for gross R LE MMT Coordination Assessment Gross Coordination Gross Coordination WNL Sensation Assessment Sensation Gross Sensation WNL Comments Sensation Comments Pt reports no senstional differences for LT and pressure to BLE M6 PT-IP Treatment Start: 10/21/18 15:09 Freq: NEEDED Status: Active Protocol: Document 10/22/18 16:05 GGD (Rec: 10/22/18 16:14 GGD [id number]) Physical Therapy Treatment Education Education Provided Precautions M7 PT-IP Assessment and Plan Start: 10/21/18 15:09 Freq: NEEDED Status: Active Protocol: Document 10/22/18 16:05 GGD (Rec: 10/22/18 16:14 GGD [id number]) PT Summary Assessment and Plan Summary Assessment Summary Pt is progressing slowly. She was able to ambulate short distance, but C/O leg weakness . She did need assist with bed mobility for log roll. Frequency of Treatment Frequency Of Treatment Twice a Day Recommendations To Nursing Amount of Assist Needed 1 Person Assist Discharge Recommendations PT Discharge Recommendations Home with 10/06 Assist SNF Rehab
--- NOTE | 2018-10-23 16:17 | PC.NURSE ---
Day Shift-Report rec'd from COLLEGE SCOUTING COORDINATOR at 1233 on current pt status. Pt arrived to unit at 1250 via bed. Pt's and daughter in room. Upon arrival to unit post op, pt's first vital sign reading was HR of 85bpm, within 1-2 mins after, HR increased to 150's. Upon auscultation, HR 138 and regular. Pt reported being 4/10 pain to back surgery area. Lethargic, arousable, O2 sat 97% on 2L NC, does close eyes when asking questions. Then awakens and answers questions, does show signs of confusion as to where she is and what happened/situation currently. Message faxed to surgery regarding increased HR at 1340. Reglan and Dilaudid 0.2mg IV given at 1350. Spoke with ALVA Gasca at 1430 regarding tachycardia sustaining between 140'2 to high 150's and regular. New order rec'd to place pt on telemetry and PA will order Metoprolol IV. EKG was obtained and SVT was identified by ALVA Gasca Telemetry placed on pt at bedside, Metoprolol 5mg IV given at 1446 with ALVA Gasca at bedside, requested pt to be switched to crash cart monitor. HR decreased from 150's to 130's. Dr. Bernard was consulted at bedside. HR decreased again to 80's and regular at 1459. Pt placed back on telemetry monitoring. New verbal order for lab work and CXR from Dr. Alvarado. Will hold from ICU transfer at this time.
--- NOTE | 2018-10-23 16:52 | P.CONS_ITS ---
History of Present Illness Date Patient Seen: 10/23/18 Time Patient Seen: 16:43 Chief complaint: [id number] Reason for consult: SVT Requesting provider: Timbo Goldberg Narrative: THIS IS A VERY PLEASANT 82-YEAR-OLD FEMALE WITH A PAST MEDICAL HISTORY SIGNIFICANT ONLY FOR HYPERTENSION, PRIOR DIAGNOSIS OF COLON CANCER. THE PATIENT ALSO SUFFER FROM ARTHRITIS. PATIENT WAS ADMITTED TO THE HOSPITAL FOR A SURGICAL PROCEDURE NAMELY SPINAL FUSION OF T10-S1 AND AN ILIAC BONE GRAFT. SHE REPORTEDLY WAS DOING VERY WELL PRIOR TO SURGERY. HER PREOP WORKUP WAS UNREMARKABLE. HOWEVER AFTER SURGERY SHE SUDDENLY WENT INTO A CARDIAC ARRHYTHMIA. SVT WAS SUSPECTED. WE WERE CONSULTED FOR RECOMMENDATION AND MANAGEMENT AT THIS POINT IN THE ROOM, SHE WAS TACHYCARDIC. HER BLOOD PRESSURE WAS FAIRLY NORMAL. SHE WAS IN NOT ANY ACUTE DISTRESS. SHE WAS KIND OF LETHARGIC. HOWEVER EASILY AROUSABLE. SHE DENIED ANY CHEST PAIN OR SHORTNESS OF BREATH. NO COUGH. NO LIGHTHEADEDNESS. NO DIZZINESS. NO CHEST PALPITATIONS. NO DIAPHORESIS. NO NAUSEA OR VOMITING. NO OTHER COMPLAINTS [facility] Medical History Back pain (Acute) Cataract fragments in both eyes following surgery (Acute ~1999) Chest pain (Acute) Colon cancer (Acute ~2008) DDD (degenerative disc disease) (Acute) DJD (degenerative joint disease) (Acute) Diarrhea (Acute) Esophageal dysmotility (Acute ~03/2007) Eye anomaly, congenital (Acute) Fatigue (Acute) Fractures (Acute ~03/2008) GERD (gastroesophageal reflux disease) (Acute) Globus hystericus (Acute) Hip pain (Acute) History of UTI (Acute) History of hysterectomy (Acute) Hypertension (Acute) IBS (irritable bowel syndrome) (Acute) Knee pain, left (Acute) Legally blind (Acute) Osteoarthritis (Acute) PVC (premature ventricular contraction) (Acute) Sciatica (Acute) Scoliosis of lumbar spine (Acute) Spinal stenosis of lumbar region with neurogenic claudication (Acute) Surgical History H/O knee surgery (Acute) H/O knee surgery (Acute) History of appendectomy (Acute) History of bunionectomy of left great toe (Acute) Social History household members: spouse Smoking Status: Never smoker alcohol intake: current Meds Home Medications Medication Instructions Recorded Confirmed Type diphenhydramine-acetaminophen 1 tab PO BEDTIME 10/06/18 10/21/18 History [Tylenol PM Extra Strength] hydrochlorothiazide 12.5 mg PO DAILY 10/06/18 10/21/18 History lisinopril 10 mg PO DAILY 10/06/18 10/21/18 History loperamide [Imodium A-D] 1 mg PO Q2H PRN 10/06/18 10/21/18 History naproxen sodium [Aleve] 220 mg PO BID 10/06/18 10/21/18 History Allergies Allergy/AdvReac Type Severity Reaction Status Date / Time codeine Allergy Mild Nausea & Verified 10/06/18 09:05 vomiting hydrocodone [From Vicodin] AdvReac Intermediate Psychedelic Verified 10/06/18 09 :06 dreams Review of Systems Review of Systems All systems reviewed & are unremarkable except as noted in HPI and below Exam Vital Signs (past 8 hours): - 10/23/18 11:48 10/23/18 11:53 10/23/18 11:57 Temperature 97.0 F L Pulse Rate 95 H 94 H 91 H Respiratory Rate 13 12 11 L Blood Pressure 143/65 H 141/67 H 149/77 H Pulse Oximetry 97 94 97 10/23/18 12:02 10/23/18 12:12 10/23/18 12:22 Temperature Pulse Rate 91 H 87 89 Respiratory Rate 18 10 L 11 L Blood Pressure 152/63 H 157/64 H 153/70 H Pulse Oximetry 97 98 98 10/23/18 12:32 10/23/18 12:37 10/23/18 13:05 Temperature 97.2 F L 97.4 F L Pulse Rate 90 89 83 Respiratory Rate 10 L 12 11 L Blood Pressure 153/70 H 162/71 H 155/74 H Pulse Oximetry 98 97 97 10/23/18 13:25 10/23/18 13:55 10/23/18 14:55 Temperature 97.6 F 97.7 F 97.7 F Pulse Rate 156 H 149 H 132 H Respiratory Rate 13 15 12 Blood Pressure 137/80 145/79 H 124/71 Pulse Oximetry 98 100 99 10/23/18 14:59 10/23/18 16:00 Temperature 97.3 F L Pulse Rate 80 84 Respiratory Rate 13 16 Blood Pressure 135/63 126/78 Pulse Oximetry 99 Oxygen Delivery Method Nasal Cannula Oxygen Flow Rate 2 Narrative Exam Narrative: NO ACUTE DISTRESS. PATIENT IS LETHARGIC. SHE IS AROUSABLE.. VITAL SIGNS STABLE HEAD ATRAUMATIC NORMOCEPHALIC NECK : SUPPLE WITHOUT ADENOPATHY EYE: EOMI, PERRLA, NORMAL CONJUNCTIVA CHEST: TACHYCARDIA... NO RUBS. PMI IS NON DISPLACED. NO MURMURS PULMONARY: DECREASED BS OVER THE BASES. MILD BIBASILAR CRACKLES NOTED; NO INCREASED DULLNESS TO PERCUSSION ABDOMEN: SOFT; NON TENDER; BS + IN ALL 4 QUAD EXTREMITIES:NO EDEMA.. NO CYANOSIS OR CLUBBING NOTED. NEURO: CRANIAL NERVES 2-12 GROSSLY INTACT. NO FOCAL NEUROLOGICAL DEFICIT NOTED. MSK: NORMAL RANGE OF MOTION FOR AGE. NO JOINT EFFUSION. SKIN: NORMAL FOR ETHNICITY; NO ECCHYMOSIS. NO LESION. GOOD TURGOR.; NORASHES : NORMAL EXTERNAL GENITALIA. NO ABNORMAL DRAINAGE PSYCH : UNABLE TO FULLY ASSESSED. LETHARGIC Objective Labs Result Diagrams: 10/23/18 15:20 10/23/18 15:20 Labs: Laboratory Results - last 24 hr 10/23/18 10/23/18 10/23/18 15:20 15:20 15:40 WBC 9.3 RBC 3.62 L Hgb 11.0 L Hct 33.1 L MCV 91.5 MCH 30.5 MCHC 33.3 RDW 14.2 Plt Count 143 L Neut % (Auto) 93.7 H Lymph % (Auto) 2.2 L [place] % (Auto) 4.0 Eos % (Auto) 0.0 L Baso % (Auto) 0.1 Neut # (Auto) 8700 H Sodium 141 Potassium 3.7 Chloride 107 Carbon Dioxide 28 BUN 11 Creatinine 0.50 L Estimated GFR > 60.0 BUN/Creatinine Ratio 22.0 Glucose 154 H Lactate 1.1 Calcium 8.3 L Phosphorus 3.3 Magnesium 1.8 Total Creatine Kinase 1064 H CK-MB (CK-2) 11.40 H CK-MB (CK-2) Rel Index 1.1 L Troponin I 0.094 H Assessment & Plan Plan: Assessment/Plan Narrative: IMPRESSION PLAN LETHARGIC. DECREASE RESPONSIVENESS. LIKELY SECONDARY TO SEDATION USED TO IN THE SURGICAL PROCEDURE. PATIENT IS MOST LIKELY A SLOW METABOLIZER; CONTINUE TO MONITOR FOR NOW; ASPIRATION PRECAUTIONS. SVT. NO PRIOR HISTORY REPORTED. PATIENT GIVEN METOPROLOL WITH APPROPRIATE RESPONSE. HEART RATE IS WITHIN NORMAL LIMITS FOR NOW. PRN ONLY FOR NOW. ELEVATED TROP; THIS COULD MAINLY REPRESENT TROP LEAKAGE FROM TACHYCARDIA; NO ACS SUSPECTED EKG DID NOT SHOW ANY SIGNFCT ST CHANGES OR BUNDLES; REPEAT LATER AND RE-ASSESS THEN ADDRESS INDICATED ELEVATED CPK ; ALSO LIKELY FROM SVT AND EXCESSIVE IMMOBILIZATION DURING DURING SURGERY; NO RHABDO SUSPECTED; SERIAL LABS TO FOLLOW STATUS POST SPINAL FUSION. THIS IS BEING MANAGED BY SURGICAL TEAM. INCENTIVE SPIROMETRY TIMES 10 WHILE AWAKE. ACTIVITIES PER ORTHO ATTENDING. PTOT. STRICT PAIN MANAGEMENT. WATCH FOR ANY SIGN OF ACUTE COMPLICATIONS. FIVE W'S ANEMIA ; LIEKLY OF CD; COULD BE HEMODILUTIONAL WELL; MONITOR WITH SERIAL LABS THROMBOCYTOPENIA; COULD BE HEMODILUTIONAL; MONITOR FOR NOW HYPERTENSION PER HISTORY. PATIENT WILL BE RESTARTED ON HER HOME MEDICATION. THIS WILL BE THE ONES INDICATED. NEEDED MEDICATION WILL BE ORDERED WELL MILD CONGESTION ON CXR; LIKELY DUE TO HYDRATION PRE/INTRA AND POST OP; MONITOR FOR NOW; MOBOLIZE PT ONCE ABLE TO DO ; STRICT IO; LASIX PRN ONLY; DEC IVF RATE AND STOP IV IN AM ONCE TAKING PO THANK YOU FOR THIS KIND CONSULT; WILL GLADLY FOLLOW WITH YOU.
[2018-10-23] MEDS: CEFAZOLIN 1 GM/50 ML FROZ.PIGGY IV (17:07)
[2018-10-23] MEDS: CELECOXIB 200 MG CAPSULE 400 MG PO (17:08)
[2018-10-23] MEDS: hydrOXYzine pamoate 25 MG CAPSULE PO (18:45)
[2018-10-23] MEDS: OXYCODONE IR 5 MG TABLET PO (18:45)
[2018-10-23] MEDS: SENNOSIDES 8.6 MG TABLET 17.2 MG PO (20:12)
[2018-10-23] MEDS: GABAPENTIN 300 MG CAPSULE PO (20:12)
[2018-10-23] MEDS: DOCUSATE 100 MG CAPSULE PO (20:12)
[2018-10-23] MEDS: CELECOXIB 200 MG CAPSULE PO (20:13)
[2018-10-23 21:04] LABS: Creatine Kinase 1044 U/L (30-135)
[2018-10-23 21:15] LABS: Troponin I 0.109 ng/mL (0.01-0.034)
[2018-10-24 00:17] VITALS: BP 103/63; PULSE 90; RESP 14; TEMP 36.4; O2SAT 97
[2018-10-24] MEDS: CEFAZOLIN 1 GM/50 ML FROZ.PIGGY IV (00:23)
[2018-10-24] MEDS: OXYCODONE IR 5 MG TABLET PO (02:23)
[2018-10-24 05:00] VITALS: BP 102/54; PULSE 91; RESP 18; TEMP 36.4; O2SAT 99
--- NOTE | 2018-10-24 05:46 | PC.NURSE ---
Reinforced BRUNA leonidg. functioning properly now. Denies any pain @ this time, placed ice pack to her lower back. She's been refusing ice pack earlier, will cont. POC & monitor.
[2018-10-24 06:08] LABS: Add Manual Diff / Slide Review NO; Basophils Percent Auto 0.1 % (0-2); Eosinophils Percent Auto 0.1 % (2-4); Hematocrit 25.4 % (36-46); Hemoglobin 8.6 g/dL (12.0-16.0); Lymphocytes Percent Auto 11.9 % (25-40); Mean Corpuscular HGB Conc 33.8 % (30-36); Mean Corpuscular Hemoglobin 30.7 PG (26-34); Mean Corpuscular Volume 90.7 fL (80-100); Monocytes Percent Auto 8.2 % (3-14); Neutrophils Absolute Auto 5200 /uL (3000-5900); Neutrophils Percent Auto 79.7 % (50-75); Platelet Count 121 X10^3/uL (150-400); Red Cell Distribution Width 14.2 % (11.6-14.8); White Blood Cell Count 6.5 X10^3/uL (4.5-11.0)
[2018-10-24 06:17] LABS: Alanine Aminotransferase 33 IU/L (9-52); Albumin 2.6 g/dL (3.5-5.0); Albumin Globulin Ratio 1.1 (1.0-2.8); Alkaline Phosphatase 54 U/L (38-126); Aspartate Aminotransferase 48 IU/L (14-36); Bilirubin Total 0.3 mg/dL (0.2-1.3); Blood Urea Nitrogen 9 mg/dL (7-17); Calcium 8.2 mg/dL (8.4-10.2); Carbon Dioxide 31 mmol/L (22-32); Chloride 106 mmol/L (98-107); Creatine Kinase 1021 U/L (30-135); Estimated Glomerular Filt Rate > 60.0 mL/min (>60); Globulin 2.3 g/dL (1.7-4.1); Glucose 109 mg/dL (80-110); HEMOLYSIS < 15 (0-50); Magnesium 1.9 mg/dL (1.6-2.3); Phosphorous 2.6 mg/dL (2.8-4.1); Potassium 3.6 mmol/L (3.4-5.1); Sodium 141 mmol/L (137-145); Total Protein 4.9 g/dL (6.3-8.2)
[2018-10-24 06:28] LABS: Troponin I 0.076 ng/mL (0.01-0.034)
--- NOTE | 2018-10-24 06:54 | PM.PNPO.1 ---
Subjective Date Patient Seen: 10/24/18 Time Patient Seen: 06:54 Interval history: Doing better today. Pain is about a 6/10. Feels like the right leg weakness she had after the 1st surgery has mostly resolved. She did go into a brief episode of SVT yesterday, but that quickly resolved as well. Exam Vital Signs (past 8 hours): - 10/24/18 00:17 10/24/18 05:00 Temperature 97.6 F 97.6 F Pulse Rate 90 91 H Respiratory Rate 14 18 Blood Pressure 103/63 102/54 L Pulse Oximetry 97 99 Oxygen Delivery Method Nasal Cannula Oxygen Flow Rate 2 Const Orientation: alert and oriented x3 Back/Spine/Pelvis Other: Dressing minimal dry drainage. 5/5 motor both lower extremities. Objective Labs Result Diagrams: 10/24/18 05:49 10/24/18 05:49 Labs: Laboratory Results - last 24 hr 10/23/18 10/23/18 10/23/18 15:20 15:20 15:40 WBC 9.3 RBC 3.62 L Hgb 11.0 L Hct 33.1 L MCV 91.5 MCH 30.5 MCHC 33.3 RDW 14.2 Plt Count 143 L Neut % (Auto) 93.7 H Lymph % (Auto) 2.2 L [place] % (Auto) 4.0 Eos % (Auto) 0.0 L Baso % (Auto) 0.1 Neut # (Auto) 8700 H Sodium 141 Potassium 3.7 Chloride 107 Carbon Dioxide 28 BUN 11 Creatinine 0.50 L Estimated GFR > 60.0 BUN/Creatinine Ratio 22.0 Glucose 154 H Lactate 1.1 Calcium 8.3 L Phosphorus 3.3 Magnesium 1.8 Total Bilirubin AST ALT Alkaline Phosphatase Total Creatine Kinase 1064 H CK-MB (CK-2) 11.40 H CK-MB (CK-2) Rel Index 1.1 L Troponin I 0.094 H Total Protein Albumin Globulin Albumin/Globulin Ratio 10/23/18 10/24/18 10/24/18 20:42 05:49 05:49 WBC 6.5 RBC 2.80 L Hgb 8.6 L Hct 25.4 L MCV 90.7 MCH 30.7 MCHC 33.8 RDW 14.2 Plt Count 121 L Neut % (Auto) 79.7 H Lymph % (Auto) 11.9 L [place] % (Auto) 8.2 Eos % (Auto) 0.1 L Baso % (Auto) 0.1 Neut # (Auto) 5200 Sodium 141 Potassium 3.6 Chloride 106 Carbon Dioxide 31 BUN 9 Creatinine 0.50 L Estimated GFR > 60.0 BUN/Creatinine Ratio 18.0 Glucose 109 Lactate Calcium 8.2 L Phosphorus 2.6 L Magnesium 1.9 Total Bilirubin 0.3 AST 48 H ALT 33 Alkaline Phosphatase 54 Total Creatine Kinase 1044 H 1021 H CK-MB (CK-2) CK-MB (CK-2) Rel Index Troponin I 0.109 H 0.076 H Total Protein 4.9 L Albumin 2.6 L Globulin 2.3 Albumin/Globulin Ratio 1.1 Assessment & Plan Post-op Postoperative Procedures Operation Date: 10/21/18 07:45 Actual Procedures Side Surgeon p L1-2, L2-3, L3-4, L4-5 Anterior Instrumented Fusion, L5-S1 Posterior Instrumented Fusion w/ Bone Graft Timbo Goldberg MD Stable today after 2nd stage of her anterior posterior scoliosis fusion. Mobilize with physical therapy. Anticipate 3-4 days more in the hospital. SVT-now resolved. Appreciate hospitalist intervention. Acute blood loss anemia after 2 surgeries. Not low enough to transfuse S not significantly symptomatic but we will recheck this again tomorrow. Thrombocytopenia again recheck this tomorrow as this is again lower today. Operation Date: 10/23/18 07:45 Actual Procedures Side Surgeon p T10-L1,L1-2,L2-3,L3-4,L4-5, L5-S1 Posterior Instru. Fusion w/bone graft Timbo Goldberg MD Quality VTE Deep Vein Thrombosis/Pulmonary Embolism Present on Admission: No
[2018-10-24] MEDS: LACTATED RINGERS 1,000 ML 125 ML IV (07:00)
[2018-10-24] MEDS: OXYCODONE IR 5 MG TABLET 10 MG PO ×5 (07:47→22:32)
[2018-10-24 07:57] VITALS: BP 133/58
[2018-10-24] MEDS: LISINOPRIL 10 MG TABLET PO (07:57)
[2018-10-24] MEDS: hydroCHLOROthiazide 12.5 MG CAPSULE PO (07:57)
[2018-10-24 08:00] VITALS: BP 128/51; PULSE 108; RESP 18; TEMP 36.8; O2SAT 96
[2018-10-24] MEDS: DOCUSATE 100 MG CAPSULE PO ×2 (09:19→21:18)
[2018-10-24] MEDS: CELECOXIB 200 MG CAPSULE PO ×2 (09:19→21:19)
[2018-10-24] MEDS: METOPROLOL TARTRATE 5 MG/5 ML INJ IV (10:51)
--- NOTE | 2018-10-24 12:06 | PM.PN.1 ---
Subjective Date Patient Seen: 10/24/18 Time Patient Seen: 12:06 Interval history: PATIENT FEELING BETTER THIS AM WORKING WITH PT NURSING REPORTED TACHYCARDIA ONCE AGAIN NO OTHER SIGNIFICANT ISSUES OVERNIGHT Exam Vital Signs (past 8 hours): - 10/24/18 05:00 10/24/18 07:57 Temperature 97.6 F Pulse Rate 91 H Respiratory Rate 18 Blood Pressure 102/54 L 133/58 L Pulse Oximetry 99 Oxygen Delivery Method Room Air Oxygen Flow Rate 2 Narrative Exam Narrative: NO ACUTE DISTRESS. PATIENT IS AAOX 4. VITAL SIGNS STABLE HEAD ATRAUMATIC NORMOCEPHALIC NECK : SUPPLE WITHOUT ADENOPATHY EYE: EOMI, PERRLA, NORMAL CONJUNCTIVA CHEST: TACHYCARDIA... NO RUBS. PMI IS NON DISPLACED. NO MURMURS PULMONARY: DECREASED BS OVER THE BASES. MILD BIBASILAR CRACKLES NOTED; NO INCREASED DULLNESS TO PERCUSSION ABDOMEN: SOFT; NON TENDER; BS + IN ALL 4 QUAD EXTREMITIES:NO EDEMA.. NO CYANOSIS OR CLUBBING NOTED. NEURO: CRANIAL NERVES 2-12 GROSSLY INTACT. NO FOCAL NEUROLOGICAL DEFICIT NOTED. MSK: NORMAL RANGE OF MOTION FOR AGE. NO JOINT EFFUSION. SKIN: NORMAL FOR ETHNICITY; NO ECCHYMOSIS. NO LESION. GOOD TURGOR.; NO RASHES : NORMAL EXTERNAL GENITALIA. NO ABNORMAL DRAINAGE PSYCH : APPROPRIATE MOOD AND AFFECTED; NORMAL JUDGEMENT Objective Labs Result Diagrams: 10/24/18 05:49 10/24/18 05:49 Labs: Laboratory Results - last 24 hr 10/23/18 10/23/18 10/23/18 15:20 15:20 15:40 WBC 9.3 RBC 3.62 L Hgb 11.0 L Hct 33.1 L MCV 91.5 MCH 30.5 MCHC 33.3 RDW 14.2 Plt Count 143 L Neut % (Auto) 93.7 H Lymph % (Auto) 2.2 L [place] % (Auto) 4.0 Eos % (Auto) 0.0 L Baso % (Auto) 0.1 Neut # (Auto) 8700 H Sodium 141 Potassium 3.7 Chloride 107 Carbon Dioxide 28 BUN 11 Creatinine 0.50 L Estimated GFR > 60.0 BUN/Creatinine Ratio 22.0 Glucose 154 H Lactate 1.1 Calcium 8.3 L Phosphorus 3.3 Magnesium 1.8 Total Bilirubin AST ALT Alkaline Phosphatase Total Creatine Kinase 1064 H CK-MB (CK-2) 11.40 H CK-MB (CK-2) Rel Index 1.1 L Troponin I 0.094 H Total Protein Albumin Globulin Albumin/Globulin Ratio 10/23/18 10/24/18 10/24/18 20:42 05:49 05:49 WBC 6.5 RBC 2.80 L Hgb 8.6 L Hct 25.4 L MCV 90.7 MCH 30.7 MCHC 33.8 RDW 14.2 Plt Count 121 L Neut % (Auto) 79.7 H Lymph % (Auto) 11.9 L [place] % (Auto) 8.2 Eos % (Auto) 0.1 L Baso % (Auto) 0.1 Neut # (Auto) 5200 Sodium 141 Potassium 3.6 Chloride 106 Carbon Dioxide 31 BUN 9 Creatinine 0.50 L Estimated GFR > 60.0 BUN/Creatinine Ratio 18.0 Glucose 109 Lactate Calcium 8.2 L Phosphorus 2.6 L Magnesium 1.9 Total Bilirubin 0.3 AST 48 H ALT 33 Alkaline Phosphatase 54 Total Creatine Kinase 1044 H 1021 H CK-MB (CK-2) CK-MB (CK-2) Rel Index Troponin I 0.109 H 0.076 H Total Protein 4.9 L Albumin 2.6 L Globulin 2.3 Albumin/Globulin Ratio 1.1 Assessment & Plan Plan: Assessment/Plan Narrative: IMPRESSION PLAN LETHARGIC. DECREASE RESPONSIVENESS. LIKELY SECONDARY TO SEDATION USED TO IN THE SURGICAL PROCEDURE. RESOLVED PATIENT IS MOST LIKELY A SLOW METABOLIZER; THIS SHOULD BE NOTED IF ADDITIONAL SURGERY NEEDED; CONTINUE TO MONITOR FOR NOW; ASPIRATION PRECAUTIONS. POSS SVT ; RESOLVED . NO PRIOR HISTORY REPORTED. CONT TO HAVE TACHYCARDIA SPORADICALLY; WILL START ON ORAL METOPROLOL; CONT HOME MEDS; KEEP ON TELE AT ALL TIMES; ADJUST MANAGEMENT INDICATED ; SERIAL EKG TO FOLLOW ELEVATED TROP; REPRESENTED TROP LEAKAGE FROM TACHYCARDIA; IMPROVING; NO ACS SUSPECTED EKG DID NOT SHOW ANY SIGNFCT ST CHANGES OR BUNDLES; FOLLOW CLOSELY ELEVATED CPK ; ALSO LIKELY FROM SVT AND EXCESSIVE IMMOBILIZATION DURING DURING SURGERY; NO RHABDO SUSPECTED; IMRPOVING; CONT TO FOLLOW WITH SERIAL LABS TO FOLLOW STATUS POST SPINAL FUSION. THIS IS BEING MANAGED BY SURGICAL TEAM. INCENTIVE SPIROMETRY TIMES 10 WHILE AWAKE. ACTIVITIES PER ORTHO ATTENDING. PTOT. STRICT PAIN MANAGEMENT. WATCH FOR ANY SIGN OF ACUTE COMPLICATIONS. FIVE W'S ANEMIA ; LIEKLY OF CD; COULD BE HEMODILUTIONAL WELL; MONITOR WITH SERIAL LABS THROMBOCYTOPENIA; COULD BE HEMODILUTIONAL; MONITOR FOR NOW HYPERTENSION PER HISTORY. PATIENT WILL BE RESTARTED ON HER HOME MEDICATION. METOPROLOL ADDED TODAY. NEEDED MEDICATION WILL BE ORDERED WELL MILD CONGESTION ON CXR; LIKELY DUE TO IV HYDRATION PRE/INTRA AND POST OP; MONITOR FOR NOW; MOBOLIZE PT ONCE ABLE TO DO ; STRICT IO; LASIX STARTED TODAY; DC IVF WILL CONT TO FOLLOW WITH YOU UNTIL DC APPRECIATED THIS KIND CONSULT Quality VTE Deep Vein Thrombosis/Pulmonary Embolism Present on Admission: No
--- NOTE | 2018-10-24 13:43 | PT.IPTN ---
Current Diagnoses Scoliosis, unspecified (10/21/18) Spinal stenosis, lumbar region with neurogenic claudication (10/21/18) Surgery Performed Operation Date: 10/21/18 07:45 Actual Procedures p L1-2, L2-3, L3-4, L4-5 Anterior Instrumented Fusion, L5-S1 Posterior Instrumented Fusion w/ Bone Graft - Timbo Goldberg MD Operation Date: 10/23/18 07:45 Actual Procedures p T10-L1,L1-2,L2-3,L3-4,L4-5, L5-S1 Posterior Instru. Fusion w/bone graft - Timbo Goldberg MD Physical Therapy Treatment Note M2 PT-IP Current Condition Start: 10/21/18 15:09 Freq: NEEDED Status: Active Protocol: Document 10/24/18 10:00 HH (Rec: 10/24/18 13:43 [id number]) Physical Therapy Current Condition Current Condition Evaluation Date 10/22/18 Treatment Diagnosis s/p L1-2, L2-3, L3-4, L4-5 anterior fusion with cages Onset Date 10/21/18 Precautions Lumbar Precautions Log Roll No Twisting Limit Bending Lifting Restriction of 10 lbs Gait Belt above Incisional Area M3 PT-IP Subjective Start: 10/21/18 15:09 Freq: NEEDED Status: Active Protocol: Document 10/24/18 10:00 HH (Rec: 10/24/18 13:43 [id number]) Subjective Physical Therapy Visit Type Type Treatment Note Visit Start Time 10:00 Visit Stop Time 10:45 Total Visit Minutes 45 Notes Pt received stage II posterior fusion T10 S1 and instrumentation and iliac bone graft. order: mobilize pt as tolerated. Pt was given an incentive spirometer due to post op pleural effusion and atelectasis. Physical Therapy Visit Comments Patient Comments Patient agreeable to mobilize with PT. Pain level 6/10 with no acute distress. Patient stated I feel better and stronger today and I am able to move my R leg better than after the 1st sx two days ago. I want to try to walk again. Ashley been also using the inspirometer very often. Therapy Pain Assessment Pain When Pain Assessed During Mobility Pain Present Pain Present Pain Reported Location Right Lower Abdomen Intensity 6 Description Acute Back Intensity 6 Scale Used Numeric (1 - 10) Description Acute M4 PT-IP Mobility and Gait Start: 10/21/18 15:09 Freq: NEEDED Status: Active Protocol: Document 10/24/18 10:00 HH (Rec: 10/24/18 13:43 HH [id number]) PT-Bed Mobility Assessment Rolling Type of Rolling Log Rolling Level of Assist Minimal Assistance Supine to Sit Supine to Sit Minimal Assistance Sit to Supine Sit to Supine Minimal Assistance Scooting Scooting to Edge of Bed Standby Assistance PT-Transfer Assessment Sit to and From Stand Sit to and from Stand Contact Guard Assistance Equipment Transfer Assistive Device Gait Belt Standard Walker Transfers Transfer Destination Bed Chair Transfer Ability Level of Assist Contact Guard Assistance Comments Mobility Comments Resting BP supine 118/53 101 HR Resting BP sitting 130/70 106 HR Resting BP standing 125/72 105 HR Pt required min A for log roll , supine to sit and sit to supine. Pt was able to scoot toward the EOB with SBA. CGA for sit to stand from bed with FWW. She was able to amb to bedside reclining chair with turning and performed stand to sit with CGA safely. Pt did require constant verbal cues and tactile cues for directional guidance due to poor vision. Gait Assessment Gait Gait Assistance Required: Contact Guard Assist Distance (Feet) 8 Able to Maintain Weight Bearing Status Yes During Gait Assistive Devices Assistive Device Gait Belt Front Wheeled Walker Gait Deviations General Gait Pattern Decreased Stride Length Decreased Feet Clearance Factors Limiting Gait Function Factors Limiting Gait Function Decreased Activity Tolerance Decreased Sensation Decreased Strength Pain Poor Balance Poor Safety Awareness Comments Gait Comments Pt amb today with difficulty in walking. Pt did state My right leg feels better and stronger today that i dont feel like i would buckle. Pt amb 4 feet x 2 from bed to counter then back to bedside reclining chair with FWW CGA and verbal and tactiles cue for directional guidance due to her poor vision. Pt did not show sign of LOB but she did c/o my right leg start getting weak and i want to go to my chair and sit down. BP after amb : 114/69 106 HR Stair Climbing Assessment Comments Stair Climbing Comments did not attempt PT-Balance Assessment Sitting Balance and Reactions Static Sitting Balance Ability Normal Dynamic Sitting Balance Ability Good Standing Balance and Reactions Static Standing Balance Ability Good Dynamic Standing Balance Ability Fair M5 PT-IP Objective Assessments Start: 10/21/18 15:09 Freq: NEEDED Status: Active Protocol: Document 10/24/18 10:00 (Rec: 10/24/18 13:43 [id number]) Orientation Orientation/Cognition Level of Alertness Alert M6 PT-IP Treatment Start: 10/21/18 15:09 Freq: NEEDED Status: Active Protocol: Document 10/24/18 10:00 (Rec: 10/24/18 13:43 [id number]) Physical Therapy Treatment Exercises Exercises Ankle Pumps Quad Sets Seated Knee Flexion/Extension Other Treatments Other Treatment Performed standing quad sets and glute set x 5 with FWW CGA seated quad sets and glute set x 5 M7 PT-IP Assessment and Plan Start: 10/21/18 15:09 Freq: NEEDED Status: Active Protocol: Document 10/24/18 10:00 HH (Rec: 10/24/18 13:43 [id number]) PT Summary Assessment and Plan Potential Rehabilitation Potential Good Status of Condition at Evaluation Evolving Summary Impairments Pain Strength Balance Sensation Bed Mobility Transfers Gait Activity Tolerance Progress Towards Goals Slow Progress due to Pain Assessment Summary Pt progess slowly towards goals due to her acute pain from stage II sx from yesterday. However, Pt did not show signs of LOB and unstable BP during tx session with OOB activity. Communicated with HARRIS Pritchett regarding CGA for pt's OOB activity Pt is not safe to go home at this point due to multiple deficits and impairments (decreased balance , strength,increased pain and poor vision) Pt will be benefit from skilled therapy to increase overall functional mobility. Recommendation for D/C to home health and possible SNF due to her multiple impairements. Frequency of Treatment Frequency Of Treatment Twice a Day Treatment Plan Physical Therapy Treatment Plan Bed Mobility Training Transfer Training Gait Training Therapeutic Exercise Balance Retraining Post Op Education Discharge Planning Hot or Cold Pack Neuromuscular Re-ed Manual Therapy Other Recommendations and Next Treatment transfer activity, gait Focus training, log roll, bed mob Discharge Recommendations PT Discharge Recommendations Home Health SNF Rehab
[2018-10-24] MEDS: METOPROLOL IR 12.5 MG TABLET PO ×2 (14:21→21:18)
[2018-10-24] MEDS: FUROSEMIDE 20 MG TABLET PO (14:21)
--- NOTE | 2018-10-24 15:24 | CM.DPC ---
DCP: continued: case received and EMR reviewed. Pt has Part 2 of her spinal surgery yesterday. Hospitalist is consulting and pt does continue some tachycardia. OT and PT are seeing pt. Discussed in Team Rounds with ortho ALVA Sanchez who notes that ortho team expects pt to be here a few more days and then go home. Therapy team notes may need snf first. DCP team will continue to follow. Pt is well poised with her Medicare for snf option if agreeable to same.
--- NOTE | 2018-10-24 15:34 | PC.NURSE ---
@ 1100 tachycardia in 160's, pt denies SOB, chest pain; IV metoprolol administered, as ordered, HR 80 and BP 105/50; new orders for PO Metoprolol and lasix administered @ 1445 PT informed this RN of HR in 140's, pt denies SOB, chest pain PO Pain medicine for moderate to severe pain
--- NOTE | 2018-10-24 15:39 | OT.IP.TRT ---
Current Diagnoses Scoliosis, unspecified (10/21/18) Spinal stenosis, lumbar region with neurogenic claudication (10/21/18) Surgery Performed Operation Date: 10/21/18 07:45 Actual Procedures p L1-2, L2-3, L3-4, L4-5 Anterior Instrumented Fusion, L5-S1 Posterior Instrumented Fusion w/ Bone Graft - Timbo Goldberg MD Operation Date: 10/23/18 07:45 Actual Procedures p T10-L1,L1-2,L2-3,L3-4,L4-5, L5-S1 Posterior Instru. Fusion w/bone graft - Timbo Goldberg MD Occupational Therapy Treatment Note M3 OT- IP Subjective and Pain Start: 10/22/18 11:39 Freq: Status: Active Protocol: Document 10/24/18 15:34 [facility] (Rec: 10/24/18 15:39 [facility] [id number]) OT- Subjective Occupational Therapy Visit Type Type Administrative Note Visit Start Time 14:30 Visit Stop Time 14:55 Total Visit Minutes 25 Notes Spoke at length to pt regarding home set-up and OT equipment needs. Pt's daughter also present in the room and determine would be best for pt to have BSC, shower chair, whistle to call , LB AED and FWW. Prior to getting pt up out of the bed, HR was at 147 while resting, therefore notifed nursing and to complete OT eval tomorrow. No charge as was not able to get pt up.
[2018-10-24 16:22] VITALS: BP 118/94; PULSE 96; RESP 17; TEMP 36.7; O2SAT 97
--- NOTE | 2018-10-24 17:06 | PT.IPTN ---
Current Diagnoses Scoliosis, unspecified (10/21/18) Spinal stenosis, lumbar region with neurogenic claudication (10/21/18) Surgery Performed Operation Date: 10/21/18 07:45 Actual Procedures p L1-2, L2-3, L3-4, L4-5 Anterior Instrumented Fusion, L5-S1 Posterior Instrumented Fusion w/ Bone Graft - Timbo Goldberg MD Operation Date: 10/23/18 07:45 Actual Procedures p T10-L1,L1-2,L2-3,L3-4,L4-5, L5-S1 Posterior Instru. Fusion w/bone graft - Timbo Goldberg MD Physical Therapy Treatment Note M2 PT-IP Current Condition Start: 10/21/18 15:09 Freq: NEEDED Status: Active Protocol: Document 10/24/18 16:43 (Rec: 10/24/18 17:05 [email or web address]) Physical Therapy Current Condition Current Condition Evaluation Date 10/22/18 Treatment Diagnosis s/p L1-2, L2-3, L3-4, L4-5 anterior fusion with cages Onset Date 10/21/18 Precautions Lumbar Precautions Log Roll No Twisting Limit Bending Lifting Restriction of 10 lbs Gait Belt above Incisional Area Abdominal Surgery Precautions Log Roll Lifting Restrictions Gait Belt above Incisional Area M3 PT-IP Subjective Start: 10/21/18 15:09 Freq: NEEDED Status: Active Protocol: Document 10/24/18 16:43 HH (Rec: 10/24/18 17:05 [email or web address]) Subjective Physical Therapy Visit Type Type Treatment Note Visit Start Time 15:15 Visit Stop Time 16:00 Total Visit Minutes 45 Notes Pt was on hold for OT due to tachycardia episode during OT assessment. HARRIS Pritchett reports pt received pain med and heart medication at 130 pm and 3 pm . Pt was seen in her room at 1615 with her CG and she agreed to mobilize with PT. Physical Therapy Visit Comments Patient Comments Pt stated I was pretty tired after sitting on the reclining chair for an hour this morning but now i want to move because brian been in bed for a few hours. Therapy Pain Assessment Pain When Pain Assessed During Mobility Pain Present Pain Present Pain Reported Location Right Lower Abdomen Intensity 6 Scale Used Numeric (1 - 10) Description Acute Dull Back Intensity 6 Description Acute Dull M4 PT-IP Mobility and Gait Start: 10/21/18 15:09 Freq: NEEDED Status: Active Protocol: Document 10/24/18 16:43 (Rec: 10/24/18 17:05 HH [email or web address]) PT-Bed Mobility Assessment Rolling Type of Rolling Log Rolling Bilateral Level of Assist Standby Assistance Minimal Assistance Supine to Sit Supine to Sit Contact Guard Assistance Minimal Assistance Sit to Supine Sit to Supine Minimal Assistance Scooting Scooting to Edge of Bed Standby Assistance PT-Transfer Assessment Sit to and From Stand Sit to and from Stand Contact Guard Assistance Use of Upper Extremities Equipment Transfer Assistive Device Gait Belt Standard Walker Transfer Ability Level of Assist Contact Guard Assistance Comments Mobility Comments Resting BP in supine 138/59 HR 96 Pt performed log roll in supine x 4 with Khoa x2 times; with CGA x 4 times. supine to sit with min A; Resting BP in sitting 107/46 HR 99. Pt was in seated position x 5 mins with no c/o of distress. Pt then performed sit to stand with CGA and maintained in standing position for 1 min with FWW CGA. Resting BP in standing 126/92 HR 102 with no distress . Pt was then transfer back to supine with min A. Pt requested to stay in L sidelying position at the end of tx session due to prolonged prone lying. Gait Assessment Comments Gait Comments Did not attempt due to fatigue . PT-Balance Assessment Sitting Balance and Reactions Static Sitting Balance Ability Good Dynamic Sitting Balance Ability Good Standing Balance and Reactions Static Standing Balance Ability Good Dynamic Standing Balance Ability Fair M5 PT-IP Objective Assessments Start: 10/21/18 15:09 Freq: NEEDED Status: Active Protocol: Document 10/24/18 10:00 (Rec: 10/24/18 13:43 [id number]) Orientation Orientation/Cognition Level of Alertness Alert M6 PT-IP Treatment Start: 10/21/18 15:09 Freq: NEEDED Status: Active Protocol: Document 10/24/18 16:43 (Rec: 10/24/18 17:05 [email or web address]) Physical Therapy Treatment Exercises Exercises Gluteal Sets Quad Sets Education Education Provided Precautions Post-Op Packet Safety Other Treatments Other Treatment Performed standing quat and glute sets x 10 diaphragmatic breathing in seated and standing position x 10 x 4 sets M7 PT-IP Assessment and Plan Start: 10/21/18 15:09 Freq: NEEDED Status: Active Protocol: Document 10/24/18 16:43 (Rec: 10/24/18 17:05 HH [email or web address]) PT Summary Assessment and Plan Potential Rehabilitation Potential Good Status of Condition at Evaluation Evolving Summary Impairments Pain Strength Balance Bed Mobility Transfers Gait Activity Tolerance Progress Towards Goals Slow Progress due to Pain Slow Progress due to Activity Tolerance Assessment Summary Pt's BP was stable throughout the tx session. Pt did not appear acute distress besides pain around surgical site during mobility. Pt was able to perform log roll this time 3/6 times with SBA by pushing off from ipsilateral LE. Pt was able to maintain static standing >1 min along with theraex at the same time without sign of LOB and distress. However, Pt progress slowly due to activity tolerance and pain from surgical site. Pt is not safe to go d/c home but she will benefit from skilled therapy to address her functional limitations. Frequency of Treatment Frequency Of Treatment Twice a Day Treatment Plan Physical Therapy Treatment Plan Bed Mobility Training Transfer Training Gait Training Therapeutic Exercise Balance Retraining Post Op Education Discharge Planning Hot or Cold Pack Neuromuscular Re-ed Manual Therapy Other Recommendations and Next Treatment log roll; bed mobility; Focus transfer training; gait training Recommendations To Nursing Amount of Assist Needed 1 Person Assist Discharge Recommendations PT Discharge Recommendations Home with Assistance Home with 10/06 Assist SNF Rehab Outpatient PT
[2018-10-24 20:03] VITALS: BP 89/41; PULSE 91; RESP 16; TEMP 36.8; O2SAT 93
[2018-10-24] MEDS: GABAPENTIN 300 MG CAPSULE PO (21:18)
[2018-10-24] MEDS: SENNOSIDES 8.6 MG TABLET 17.2 MG PO (21:18)
[2018-10-25] VITALS (10 sets, daily range): BP systolic 93–128; BP diastolic 27–68; PULSE 87–102; RESP 16–18; TEMP 36.4–36.9; O2SAT 88–96
[2018-10-25] MEDS: OXYCODONE IR 5 MG TABLET PO ×3 (01:23→20:35)
[2018-10-25] MEDS: OXYCODONE IR 5 MG TABLET 10 MG PO (05:06)
[2018-10-25 05:54] LABS: Add Manual Diff / Slide Review NO; Basophils Percent Auto 0.4 % (0-2); Eosinophils Percent Auto 2.2 % (2-4); Hematocrit 26.3 % (36-46); Hemoglobin 8.8 g/dL (12.0-16.0); Lymphocytes Percent Auto 14.2 % (25-40); Mean Corpuscular HGB Conc 33.5 % (30-36); Mean Corpuscular Hemoglobin 30.7 PG (26-34); Mean Corpuscular Volume 91.4 fL (80-100); Monocytes Percent Auto 9.1 % (3-14); Neutrophils Absolute Auto 5800 /uL (3000-5900); Neutrophils Percent Auto 74.1 % (50-75); Platelet Count 157 X10^3/uL (150-400); Red Blood Cell Count 2.88 X10^6/uL (4.0-5.2); Red Cell Distribution Width 14.2 % (11.6-14.8); White Blood Cell Count 7.8 X10^3/uL (4.5-11.0)
--- NOTE | 2018-10-25 06:21 | PC.NURSE ---
Pt. reported pain level @ 810 @ 0500 & B/P stable @ that time 113/60. She was hypotensive @ 0100 95/45, only medicated her 5 mg. of Percolone @ 0123 with pain level 10. Repositioned to her Rt. side & ice packs applied twice this shift. Will cont. POC & monitor.
--- NOTE | 2018-10-25 08:33 | P.PN_ITS ---
Subjective Date Patient Seen: 10/25/18 Time Patient Seen: 08:20 Interval history: The patient reports feeling significant discomfort with movement however she feels comfortable at rest. She is concerned about her heart rate. Exam Vital Signs (past 8 hours): - 10/25/18 00:41 10/25/18 04:53 Temperature 98.5 F 97.6 F Pulse Rate 93 H 99 H Respiratory Rate 18 18 Blood Pressure 104/68 113/60 Pulse Oximetry 92 95 Oxygen Delivery Method Room Air Oxygen Flow Rate 2 Narrative Exam Narrative: On physical examination she is lying comfortably supine in bed. Light touch is intact in both lower extremities. Dorsiflexion and plantar flexion is intact in both feet and toes. Objective Labs Result Diagrams: 10/25/18 05:32 10/24/18 05:49 Labs: Laboratory Results - last 24 hr 10/25/18 05:32 WBC 7.8 RBC 2.88 L Hgb 8.8 L Hct 26.3 L MCV 91.4 MCH 30.7 MCHC 33.5 RDW 14.2 Plt Count 157 Neut % (Auto) 74.1 Lymph % (Auto) 14.2 L [place] % (Auto) 9.1 Eos % (Auto) 2.2 Baso % (Auto) 0.4 Neut # (Auto) 5800 Assessment & Plan Post-op Postoperative Procedures Operation Date: 10/21/18 07:45 Actual Procedures Side Surgeon p L1-2, L2-3, L3-4, L4-5 Anterior Instrumented Fusion, L5-S1 Posterior Instrumented Fusion w/ Bone Graft Timbo Goldberg MD Operation Date: 10/23/18 07:45 Actual Procedures Side Surgeon p T10-L1,L1-2,L2-3,L3-4,L4-5, L5-S1 Posterior Instru. Fusion w/bone graft Timbo Goldberg MD Postoperative day: 2 (Postoperative day 2 and 4 from staged procedures.) Postoperative status: doing well, marginal pain control, anemia and other ( Supraventricular tachycardia.) Postoperative status narrative: The patient is making reasonable progress after significant staged spine surgery. I appreciate the assistance of the hospitalist service regarding the patient's tachycardia. She is making slow progress with physical therapy. She has a situation appropriate acute post hemorrhagic anemia which appears to be fairly stable. If the medical service feels it is necessary transfusion may be contemplated. Postoperative plan: routine post-op care and ambulate Postoperative plan narrative: Continued physical therapy. Transfusion if necessary to address the anemia in combination with the SVT. Likely discharge in several days. Time Spent With Patient less than 15 minutes Quality VTE Deep Vein Thrombosis/Pulmonary Embolism Present on Admission: No
[2018-10-25] MEDS: CELECOXIB 200 MG CAPSULE PO ×2 (08:51→20:36)
[2018-10-25] MEDS: FUROSEMIDE 20 MG TABLET PO (08:53)
[2018-10-25] MEDS: DOCUSATE 100 MG CAPSULE PO (08:53)
--- NOTE | 2018-10-25 09:30 | PT.IPTN ---
Current Diagnoses Scoliosis, unspecified (10/21/18) Spinal stenosis, lumbar region with neurogenic claudication (10/21/18) Surgery Performed Operation Date: 10/21/18 07:45 Actual Procedures p L1-2, L2-3, L3-4, L4-5 Anterior Instrumented Fusion, L5-S1 Posterior Instrumented Fusion w/ Bone Graft - Timbo Goldberg MD Operation Date: 10/23/18 07:45 Actual Procedures p T10-L1,L1-2,L2-3,L3-4,L4-5, L5-S1 Posterior Instru. Fusion w/bone graft - Timbo Goldberg MD Physical Therapy Treatment Note M2 PT-IP Current Condition Start: 10/21/18 15:09 Freq: NEEDED Status: Active Protocol: Document 10/24/18 16:43 HH (Rec: 10/24/18 17:05 HH [email or web address]) Physical Therapy Current Condition Current Condition Evaluation Date 10/22/18 Treatment Diagnosis s/p L1-2, L2-3, L3-4, L4-5 anterior fusion with cages Onset Date 10/21/18 Precautions Lumbar Precautions Log Roll No Twisting Limit Bending Lifting Restriction of 10 lbs Gait Belt above Incisional Area Abdominal Surgery Precautions Log Roll Lifting Restrictions Gait Belt above Incisional Area M3 PT-IP Subjective Start: 10/21/18 15:09 Freq: NEEDED Status: Active Protocol: Document 10/25/18 09:30 [facility] (Rec: 10/25/18 12:43 [facility] [id number]) Subjective Physical Therapy Visit Type Type Cancellation Notes PT this a.m. held due to hypotension and slurred speech , possibly due to narcotics. Recommend check with RN in p.m . Frequency of Treatment Frequency Of Treatment Twice a Day Treatment Plan Physical Therapy Treatment Plan Bed Mobility Training Transfer Training Gait Training Therapeutic Exercise Balance Retraining Post Op Education Discharge Planning Hot or Cold Pack Neuromuscular Re-ed Manual Therapy Other Recommendations and Next Treatment log roll; bed mobility; Focus transfer training; gait training Recommendations To Nursing Amount of Assist Needed 1 Person Assist Discharge Recommendations PT Discharge Recommendations Home with Assistance Home with 24/7 Assist SNF Rehab Outpatient PT
--- NOTE | 2018-10-25 09:34 | P.PN_ITS ---
Subjective Date Patient Seen: 10/25/18 Time Patient Seen: 09:25 Interval history: REPORT SPEECH BEING MORE SLURRED TODAY' HOWEVER, NO DYSPHAGIA NO CP/SOB NO FEVER OR CHILLS Exam Vital Signs (past 8 hours): - 10/25/18 04:53 10/25/18 08:30 10/25/18 08:33 Temperature 97.6 F 98.1 F Pulse Rate 99 H 102 H Respiratory Rate 18 18 Blood Pressure 113/60 93/27 L 103/56 L Pulse Oximetry 95 90 L Oxygen Delivery Method Room Air Oxygen Flow Rate 0 Narrative Exam Narrative: NO ACUTE DISTRESS. PATIENT IS AAOX 4. VITAL SIGNS STABLE HEAD ATRAUMATIC NORMOCEPHALIC NECK : SUPPLE WITHOUT ADENOPATHY EYE: EOMI, PERRLA, NORMAL CONJUNCTIVA CHEST: TACHYCARDIA... NO RUBS. PMI IS NON DISPLACED. NO MURMURS PULMONARY: DECREASED BS OVER THE BASES. MILD BIBASILAR CRACKLES NOTED; NO INCREASED DULLNESS TO PERCUSSION ABDOMEN: SOFT; NON TENDER; BS + IN ALL 4 QUAD EXTREMITIES:NO EDEMA.. NO CYANOSIS OR CLUBBING NOTED. NEURO: CRANIAL NERVES 2-12 GROSSLY INTACT. NO FOCAL NEUROLOGICAL DEFICIT NOTED. MSK: STRENGHT 4 OUT 5. NO JOINT EFFUSION. SKIN: NORMAL FOR ETHNICITY; NO ECCHYMOSIS. NO LESION. GOOD TURGOR.; NO RASHES : NORMAL EXTERNAL GENITALIA. NO ABNORMAL DRAINAGE PSYCH : APPROPRIATE MOOD AND AFFECTED; NORMAL JUDGEMENT Objective Labs Result Diagrams: 10/25/18 05:32 10/24/18 05:49 Labs: Laboratory Results - last 24 hr 10/25/18 05:32 WBC 7.8 RBC 2.88 L Hgb 8.8 L Hct 26.3 L MCV 91.4 MCH 30.7 MCHC 33.5 RDW 14.2 Plt Count 157 Neut % (Auto) 74.1 Lymph % (Auto) 14.2 L [place] % (Auto) 9.1 Eos % (Auto) 2.2 Baso % (Auto) 0.4 Neut # (Auto) 5800 Assessment & Plan Plan: Assessment/Plan Narrative: IMPRESSION PLAN LETHARGIC. DECREASE RESPONSIVENESS. RESOLVED; BACK TO BASELINE. CONTINUE TO MONITOR FOR NOW; ASPIRATION PRECAUTIONS. POSS SVT ; RESOLVED . NO PRIOR HISTORY REPORTED. CONT TO HAVE MILD TACHYCARDIA SPORADICALLY; CONT WITH ON ORAL METOPROLOL FOR NOW; BP REMAINS IN LOW SIDE, WOULD ALSO COSNIDER DIG IF INDICATED; KEEP ON TELE AT ALL TIMES; ADJUST MANAGEMENT INDICATED ; SERIAL EKG TO FOLLOW ELEVATED TROP; REPRESENTED TROP LEAKAGE FROM TACHYCARDIA; IMPROVING; NO ACS SUSPECTED EKG DID NOT SHOW ANY SIGNFCT ST CHANGES OR BUNDLES; FOLLOW CLOSELY ELEVATED CPK ; ALSO LIKELY FROM SVT AND EXCESSIVE IMMOBILIZATION DURING DURING SURGERY; NO RHABDO SUSPECTED; IMRPOVING; CONT TO FOLLOW WITH SERIAL LABS TO FOLLOW SLURRED SPEECH; NO CVA SUSPECTED; LIKELY DUE TO OPIOIDS MEDS; DOSES WILL BE ADJUSTED TODAY AND WILL RECOMM TO LIMIT THEIR USE IN THIS CASE; TRAMADOL ORDERED ; CONSIDER CT/MRI BRAIN IF INDICATED ONLY STATUS POST SPINAL FUSION. THIS IS BEING MANAGED BY SURGICAL TEAM. INCENTIVE SPIROMETRY TIMES 10 WHILE AWAKE. ACTIVITIES PER ORTHO ATTENDING. PTOT. STRICT PAIN MANAGEMENT. WATCH FOR ANY SIGN OF ACUTE COMPLICATIONS. FIVE W'S ANEMIA ; LIEKLY OF CD; COULD BE WORSENED BY HEMODILUTIONAL; DC IVF; MONITOR WITH SERIAL LABS; NO NEED TO TRANSFUSED UNLESS HGB <7 OR SEVERELY SYMPTOMATIC. THROMBOCYTOPENIA; COULD BE HEMODILUTIONAL WELL; MONITOR FOR NOW; NO FURTHER TX INDICATED HYPERTENSION PER HISTORY. PATIENT WILL BE RESTARTED ON HER HOME MEDICATION. METOPROLOL ADDED TODAY. NEEDED MEDICATION WILL BE ORDERED WELL MILD CONGESTION ON CXR; LIKELY DUE TO IV HYDRATION PRE/INTRA AND POST OP; MONITOR FOR NOW; MOBOLIZE PT ONCE ABLE TO DO ; STRICT IO; LASIX STARTED TODAY; DC IVF WILL CONT TO FOLLOW WITH YOU UNTIL DC APPRECIATED THIS KIND CONSULT Quality VTE Deep Vein Thrombosis/Pulmonary Embolism Present on Admission: No
--- NOTE | 2018-10-25 09:36 | PC.NURSE ---
Addendum entered by Anisa Starks R.N. 10/25/18 12:55: Speech has improved significantly since prior assessment, Pt states improved and this RN continued to monitor swallow with daughter at bedside. Continues with no difficulty in swallow or airway protection. 1L of 02 reduced to attempt wean. Tramadol given. Original Note: Am Nurse note Pt is A/o x3, feels increased oxycodone has helped with pain, but Pt is slurring speech, nodding off in conversation. I am just exhausted Hospitalist into see Pt, discussed POC and potential for change in medication to decrease drowsiness. Monitoring H/h with symptom management. Pt is aggreaable to POC and oral provided for dry MM. Held Lisinopril and metoprolol for hypotension.
--- NOTE | 2018-10-25 10:07 | CM.DPC ---
DCP Cont: Discussed case in team rounds. Therapy stated that detention may be beneficial for her, for she is not moving as much as she should be. Checked on patient, but she is sleeping. Called daughter, Beverly, to discuss plan. She stated that she would be here at approximately 11:30. Will meet with her then, and discuss plan. P: DCP will meet with daughter, Beverly, to discuss plan. Will include Medicare choice list as well, should patient consent to detention for rehab. Heather Keen RN/[employer]
--- NOTE | 2018-10-25 10:09 | OT.IP.EVAL ---
Current Diagnoses Scoliosis, unspecified (10/21/18) Spinal stenosis, lumbar region with neurogenic claudication (10/21/18) Surgery Performed Operation Date: 10/21/18 07:45 Actual Procedures p L1-2, L2-3, L3-4, L4-5 Anterior Instrumented Fusion, L5-S1 Posterior Instrumented Fusion w/ Bone Graft - Timbo Goldberg MD Operation Date: 10/23/18 07:45 Actual Procedures p T10-L1,L1-2,L2-3,L3-4,L4-5, L5-S1 Posterior Instru. Fusion w/bone graft - Timbo Goldberg MD Past Medical History (Last Reviewed 10/23/18 @ 16:49 by Tika Estrada DO) Back pain (Acute) Cataract fragments in both eyes following surgery (Acute ~1999) Chest pain (Acute) Colon cancer (Acute ~2008) DDD (degenerative disc disease) (Acute) DJD (degenerative joint disease) (Acute) Diarrhea (Acute) Esophageal dysmotility (Acute ~03/2007) Eye anomaly, congenital (Acute) Fatigue (Acute) Fractures (Acute ~03/2008) GERD (gastroesophageal reflux disease) (Acute) Globus hystericus (Acute) Hip pain (Acute) History of UTI (Acute) History of hysterectomy (Acute) Hypertension (Acute) IBS (irritable bowel syndrome) (Acute) Knee pain, left (Acute) Legally blind (Acute) Osteoarthritis (Acute) PVC (premature ventricular contraction) (Acute) Sciatica (Acute) Scoliosis of lumbar spine (Acute) Spinal stenosis of lumbar region with neurogenic claudication (Acute) Surgical History (Last Reviewed 10/23/18 @ 16:49 by Tika Estrada DO) H/O knee surgery (Acute) H/O knee surgery (Acute) History of appendectomy (Acute) History of bunionectomy of left great toe (Acute) Occupational Therapy Inpatient Evaluation/Re-Eval M1 PT/OT-IP Prior Functional Status Start: 10/21/18 15:09 Freq: NEEDED Status: Active Protocol: Document 10/25/18 09:48 [facility] (Rec: 10/25/18 10:09 [facility] [id number]) Medical Review Prior Functional Status Medical History Reviewed Yes Diet/Fluid Consistency Regular Thin Liquids Communication Independent Mobility and Gait Independent without AD Activities of Daily Living and IADL's Independent without AD Required assistance from CG for house cleaning due to chronic LBP Prior Functional Level (Other details) 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 Social History Household Members spouse Living Arrangements House Number of Floors (Floors) Two Floors Number of Stairs To Enter/Railing? no steps to enter Home Environment Standard Height Toilet Walk in Shower Home Equipment Hand Held Shower Additional Social History Comment Pt's daughter to get BCS, shower chair, and FWW for pt. In addition, pt will need LB AED. M2 OT-IP Current Condition Start: 10/22/18 11:39 Freq: Status: Active Protocol: Document 10/25/18 09:48 [facility] (Rec: 10/25/18 10:09 [facility] [id number]) Occupational Therapy Current Condition Current Condition Evaluation Date 10/25/18 Treatment Diagnosis Lumbar Stenosis with radiculopathy Diagnosis Onset Date 10/21/18 Post Operative Precautions Lumbar Precautions Log Roll No Twisting Limit Bending Lifting Restriction of 10 lbs Gait Belt above Incisional Area Abdominal Surgery Precautions Log Roll Lifting Restrictions Gait Belt above Incisional Area M3 OT- IP Subjective and Pain Start: 10/22/18 11:39 Freq: Status: Active Protocol: Document 10/25/18 09:48 [facility] (Rec: 10/25/18 10:09 [facility] [id number]) OT- Subjective Occupational Therapy Visit Type Type Initial Evaluation Visit Start Time 08:15 Visit Stop Time 08:50 Total Visit Minutes 35 Notes Pt feeling tired but willing ot get up. OT Pain Assessment Pain When Pain Assessed During Mobility Pain Present Pain Present Pain Reported Location Right Lower Abdomen Intensity 7 Scale Used Numeric (1 - 10) M4 OT- IP ADL's Start: 10/22/18 11:39 Freq: Status: Active Protocol: Document 10/25/18 09:48 [facility] (Rec: 10/25/18 10:09 [facility] [id number]) OT [id number] General Evaluation Self-Feeding Ability Independent Comments OT Self-Feeding Comments While sitting up with HOB up. OT ADL-Dressing General Eval Lower Body Dressing Ability Total Assistance Areas Needing Assistance Socks Comments OT Dressing Comments Dependent at this time. Initiated use of LB AD for LB dressing needs. OT ADL-Toileting Comments OT Toileting Comments Pt has catheter in. M5 OT- IP IADL's Start: 10/22/18 11:39 Freq: Status: Active Protocol: Document 10/25/18 09:48 [facility] (Rec: 10/25/18 10:09 [facility] [email or web address]) OT-Instrumental Activities of Daily Living Meal Preparation Meal Preparation Comments Pt states prior has been having more trouble to stand to do cooking needs. 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 M6 OT- IP Functional Cognition Start: 10/22/18 11:39 Freq: Status: Active Protocol: Document 10/25/18 09:48 [facility] (Rec: 10/25/18 10:09 [facility] [email or web address]) Cognitive Factors Limiting Selfcare Function Cognitive Ability Level of Alertness Alert Patient Orientation Name Place Situation Attention Span Ability Capable of Focused Attention Capable of Sustained Attention Ability to Follow Commands Able to Follow One Step Commands Memory Description Short Term Impaired Safety Awareness Decreased Recall of Precautions Decreased Ability to Apply Precautions Cognitive Comments Cognitive Assessment Comments Pt speech sounds a more slurred today, nursing aware. Pt very tired today and and only able to follow simple one step commands. OT- Vision and Hearing OT- Vision Assessment Vision Assessment Comments Pt legally blind. M7 OT- IP Mobility and Balance Start: 10/22/18 11:39 Freq: Status: Active Protocol: Document 10/25/18 09:48 [facility] (Rec: 10/25/18 10:09 [facility] [email or web address]) OT- Bed Mobility Assessment Rolling Type of Rolling Roll to Left Level of Assistance Moderate Assistance Bedrails Supine to Sit Supine to Sit Assist Moderate Assistance 1 Person Assistance Sit to Supine Sit to Supine Assist Maximum Assistance 1 Person Assistance Scooting Scooting to Edge of Bed Minimal Assistance OT-Transfer Assessment Comments Mobility Comments Pt's Bp supine 76/37 and then 90/52, sitting 93/27- pt complaining of feeling sweaty and weak and assist pt back to supine 103/56. Pt wanting to eat and HOB up BP 90/56 O2 on RA 88%. Spoke to nursing regarding decreased BP and O2 and pt placed on 1L of O2 and increased to 95%. OT- Balance Assessment Sitting Balance and Reactions Static Sitting Balance Ability Good M8 OT- IP Objective Assessments Start: 10/22/18 11:39 Freq: Status: Active Protocol: Document 10/25/18 09:48 [facility] (Rec: 10/25/18 10:09 [facility] [email or web address]) OT Strength Upper Extremity Strength Assessment Within Functional Limits OT-Muscle Tone Assessment Muscle Tone WNL Yes M9 OT- IP Assessment and Plan Start: 10/22/18 11:39 Freq: Status: Active Protocol: Document 10/25/18 09:48 [facility] (Rec: 10/25/18 10:09 [facility] [email or web address]) OT Summary Assessment and Plan Potential Rehabilitation Potential Good Analytic Complexity at Evaluation Moderate Summary OT Impairments Pain Strength Balance Functional Cognition Functional Mobility Grooming Dressing Toileting Bathing Toilet Transfers Shower Transfers Progress Towards Goals Slow Progress due to Pain Slow Progress due to Medical Issues Slow Progress due to Activity Tolerance Slow Progress due to Cognition Assessment Summary Pt MOD complexity due to medical history, decreased BP, and overall decreased activity tolerance and at this time with OT only able to tolerate sitting up on the edge of the bed due to not feeling well and low BP. Pt's O2 level also drops and was placed on 1L of O2. Pt at this time will need extensive assist at home for ADL and functional mobility needs. Pt' s not able to do any lifting and therefore pt would benefit from skilled rehab upon discharge pending progress and medical stability . Goals Self-Feeding Goal Standby Assistance Grooming Goal Standby Assistance Dressing Goal Minimal Assistance Toileting Goal Standby Assistance Bathing Goal Contact Guard Assistance Toilet Transfer Goal Standby Assistance Shower Transfer Goal Minimal Assistance Patient/Caregiver Education Goal Demonstrate Post-Op Precautions Caregiver Independent Assisting Patient Days to Meet Goals 7 Frequency of Treatment Frequency Of Treatment Once a Day Treatment Plan OT Treatment Plan ADL Training Functional Cognition Training Functional Mobility Patient/Family Education Discharge Planning Other Treatment Recommendations and Next Transfer to [facility] with MODA x1, Treatment Focus LB dressing with AED MODA Discharge Recommendations OT Discharge Recommendations SNF Rehab Home Equipment Needs BSC, shower chair, LB AED, FWW
[2018-10-25] MEDS: SODIUM CHLORIDE 0.9% FLUSH 10 ML IV ×3 (10:55→20:35)
--- NOTE | 2018-10-25 11:55 | CM.DPC ---
DCP Cont: Met with patient and daughter, Beverly, in patient's room to discuss plan. Daughter is a retired nurse after 30 years. She is aware that her mom is not stable at this point, for she is also having cardiac issues, along with pain due to both surgeries. Stated that skilled rehab is an option, and does not expect her to go anywhere before Wed. Stated that she would rather have her go home, and she could stay with her for a while, but if she needs shelter, will go with [facility] first choice, and [facility] as second. She had reviewed Medicare Choice list. Called [facility], and spoke to Rosangela, she is week-end admissions. Stated that they do have beds available, but don't do bed holds unless payment is made. let her know, this shoe caser would fax over clinicals for her to review. Let her know that discharge late next week could happen. Will send clinicals today. P: DCP to follow closely. If unable to go home, [facility] would be the choice. Heather Keen RN/Fishing Line Winding Machine Operator
[2018-10-25] MEDS: TRAMADOL 50 MG TABLET PO ×2 (12:18→20:35)
[2018-10-25] MEDS: METOCLOPRAMIDE 10 MG/2 ML INJ IV (14:03)
[2018-10-25] MEDS: HYDROMORPHONE 1 MG INJ 0.2 MG IV (14:31)
--- NOTE | 2018-10-25 15:33 | PT.IPTN ---
Current Diagnoses Scoliosis, unspecified (10/21/18) Spinal stenosis, lumbar region with neurogenic claudication (10/21/18) Surgery Performed Operation Date: 10/21/18 07:45 Actual Procedures p L1-2, L2-3, L3-4, L4-5 Anterior Instrumented Fusion, L5-S1 Posterior Instrumented Fusion w/ Bone Graft - Timbo Goldberg MD Operation Date: 10/23/18 07:45 Actual Procedures p T10-L1,L1-2,L2-3,L3-4,L4-5, L5-S1 Posterior Instru. Fusion w/bone graft - Timbo Goldberg MD Physical Therapy Treatment Note M2 PT-IP Current Condition Start: 10/21/18 15:09 Freq: NEEDED Status: Active Protocol: Document 10/24/18 16:43 [facility] (Rec: 10/24/18 17:05 [facility] [email or web address]) Physical Therapy Current Condition Current Condition Evaluation Date 10/22/18 Treatment Diagnosis s/p L1-2, L2-3, L3-4, L4-5 anterior fusion with cages Onset Date 10/21/18 Precautions Lumbar Precautions Log Roll No Twisting Limit Bending Lifting Restriction of 10 lbs Gait Belt above Incisional Area Abdominal Surgery Precautions Log Roll Lifting Restrictions Gait Belt above Incisional Area M3 PT-IP Subjective Start: 10/21/18 15:09 Freq: NEEDED Status: Active Protocol: Document 10/25/18 15:31 [facility] (Rec: 10/25/18 15:33 [facility] [id number]) Subjective Physical Therapy Visit Type Type Patient Refusal Notes Pt states she in a lot of pain after taking less meds today. She reports her pain 9/10. will see in AM. Recommendations To Nursing Amount of Assist Needed 1 Person Assist Discharge Recommendations PT Discharge Recommendations Home with Assistance Home with 10/06 Assist SNF Rehab Outpatient PT
[2018-10-25] MEDS: hydrOXYzine pamoate 25 MG CAPSULE PO (20:35)
[2018-10-25] MEDS: SENNOSIDES 8.6 MG TABLET 17.2 MG PO (20:36)
[2018-10-25] MEDS: GABAPENTIN 100 MG CAPSULE PO (20:36)
[2018-10-25] MEDS: METOPROLOL IR 12.5 MG TABLET PO (20:36)
[2018-10-26] VITALS (7 sets, daily range): BP systolic 94–132; BP diastolic 50–63; PULSE 82–92; RESP 14–19; TEMP 36–36.7; O2SAT 91–94
--- NOTE | 2018-10-26 | DI.CT.S_ITS ---
PROCEDURE: CT HEAD/BRAIN WO CON INDICATIONS: SLURRED SPEECH TECHNIQUE: Noncontrast 4.5 mm thick angled axial sections acquired from the foramen magnum to the vertex, with coronal and sagittal reformats. For radiation dose reduction, the following was used: automated exposure control, adjustment of mA and/or kV according to patient size. COMPARISON: None. FINDINGS: Image quality: Excellent. CSF spaces: Basal cisterns are patent. No extra-axial fluid collections. The ventricles are symmetric in size and shape. There is mild cerebral volume loss, with resultant ventricular and sulcal prominence. Brain: No intracranial hemorrhage, mass, or mass effect. There are subcortical, periventricular and deep white matter hypodensities consistent with mild chronic small vessel ischemic changes. There is intracranial internal carotid artery atherosclerosis. Skull and face: Calvarium and visualized facial bones appear intact, without suspicious lesions. Sinuses: Visualized sinuses and mastoids are clear. IMPRESSION: 1. No acute intracranial abnormality. 2. Mild chronic white matter small vessel ischemic changes and cerebral volume loss. Dictated by: Lonnie Miller M.D. on 10/26/2018 at 14:11 Approved by: Lonnie Miller M.D. on 10/26/2018 at 14:12
[2018-10-26] MEDS: hydrOXYzine pamoate 25 MG CAPSULE PO ×4 (01:00→21:30)
[2018-10-26] MEDS: OXYCODONE IR 5 MG TABLET PO ×6 (01:00→21:30)
--- NOTE | 2018-10-26 02:07 | PC.NURSE ---
IV site I tried to restart her IV access x2, but failed. Trevor Watkins RN successfully placed another IV access in her LAC. Medicated pt. with 5 mg. of Percolone & 25 mg. of Vistaril PO & she's sleeping now. Will cont. POC & monitor.
--- NOTE | 2018-10-26 05:15 | PC.NURSE ---
Reassessed pt. if she needed pain meds. she replied let's wait for a little bit. Instructed to notify staff if she need her pain medications. Will Cont. POC & monitor.
--- NOTE | 2018-10-26 06:59 | PC.NURSE ---
Pt. refused to DC her felipe cath. States will wait later on this morning. Will report to day RN.
[2018-10-26] MEDS: TRAMADOL 50 MG TABLET PO ×4 (07:19→21:29)
--- NOTE | 2018-10-26 08:37 | PM.PNPO.1 ---
Subjective Date Patient Seen: 10/26/18 Time Patient Seen: 08:38 Interval history: She is behind on her pain medication right now and her pain level is about an 8/10. However, she is sitting comfortably in bed eating breakfast. Pain is in the back some into the abdomen and some to the upper anterior thigh. Exam Vital Signs (past 8 hours): - 10/26/18 05:11 10/26/18 08:00 Temperature 97.2 F L 98.1 F Pulse Rate 86 82 Respiratory Rate 17 18 Blood Pressure 100/56 L 132/60 Pulse Oximetry 94 92 Oxygen Delivery Method Room Air Oxygen Flow Rate 0.5 Const Orientation: alert and oriented x3 Back/Spine/Pelvis Other: Dressing unchanged with dry drainage, 5/5 motor both lower extremities Objective Labs Result Diagrams: 10/25/18 05:32 10/24/18 05:49 Assessment & Plan Post-op Postoperative Procedures Operation Date: 10/21/18 07:45 Actual Procedures Side Surgeon p L1-2, L2-3, L3-4, L4-5 Anterior Instrumented Fusion, L5-S1 Posterior Instrumented Fusion w/ Bone Graft Timbo Goldberg MD Operation Date: 10/23/18 07:45 Actual Procedures Side Surgeon p T10-L1,L1-2,L2-3,L3-4,L4-5, L5-S1 Posterior Instru. Fusion w/bone graft Timbo Goldberg MD Status post extensive front back scoliosis fusion. Continue to mobilize with physical therapy. May be able to discharge tomorrow, may need to consider group home. SVT resolved Still with acute blood loss anemia but stable, as well as thrombocytopenia has resolved. Quality VTE Deep Vein Thrombosis/Pulmonary Embolism Present on Admission: No
[2018-10-26] MEDS: FUROSEMIDE 20 MG TABLET PO (10:03)
[2018-10-26] MEDS: CELECOXIB 200 MG CAPSULE PO ×2 (10:03→21:29)
[2018-10-26] MEDS: DOCUSATE 100 MG CAPSULE PO ×2 (10:03→21:29)
[2018-10-26] MEDS: SODIUM CHLORIDE 0.9% FLUSH 10 ML IV (10:06)
--- NOTE | 2018-10-26 10:09 | PC.NURSE ---
Addendum entered by Anisa Starks R.N. 10/26/18 14:59: PT HR has increased to 140 at rest. PRn metoprol given. Hospitalist notified Original Note: Addendum entered by Anisa Starks R.N. 10/26/18 14:24: Pt speech continues to be slurred after narcotic use, clearing as dosing clears. Pt shows some frustration in pain control this shift, I dont want this to keep happening, where I am behind on pain control and hurting with less pain medication because it made me slur my words. reminding Pt to use PRN pain control as needed and it is available, not scheduled. Original Note: Am shift Pt has been c/o pain this AM. Discussed backing off of narcotics yesterday to clear the speech that was slurred, but this resulted in more pain. Pt States the speech seems slurred to her, but this RN assessed 24 hours prior and the speech was certainly more slurred at that time. I would rather be more comfortable and slur my speech. VSS have improved from 24 hours prior, no further hypotension. Will work on mobility today after PT see's pain improvement. Medicated with oxycodone, tramadol. Dr Rod at bedside, Pt felt that gabapentin was helpful last HS, will try that routinely today. CT scan also order to cover the slur in speech. IV SL. Lungs clear Spo2 97%
--- NOTE | 2018-10-26 11:53 | PM.PN.1 ---
Subjective Date Patient Seen: 10/26/18 Time Patient Seen: 11:54 Interval history: STILL WITH SLURRED SPEECH STATED THAT SHE IS HAVING MORE DISCOMFORT AFTER PAIN MEDS DEC YESTERDAY SPOKE TO NURSING REGARDING CASE Exam Vital Signs (past 8 hours): - 10/26/18 05:11 10/26/18 08:00 Temperature 97.2 F L 98.1 F Pulse Rate 86 82 Respiratory Rate 17 18 Blood Pressure 100/56 L 132/60 Pulse Oximetry 94 92 Oxygen Delivery Method Room Air Oxygen Flow Rate 0.5 Narrative Exam Narrative: NO ACUTE DISTRESS. PATIENT IS AAOX 4. VITAL SIGNS STABLE HEAD ATRAUMATIC NORMOCEPHALIC NECK : SUPPLE WITHOUT ADENOPATHY EYE: EOMI, PERRLA, NORMAL CONJUNCTIVA CHEST: TACHYCARDIA... NO RUBS. PMI IS NON DISPLACED. NO MURMURS PULMONARY: DECREASED BS OVER THE BASES. MILD BIBASILAR CRACKLES NOTED; NO INCREASED DULLNESS TO PERCUSSION ABDOMEN: SOFT; NON TENDER; BS + IN ALL 4 QUAD EXTREMITIES:NO EDEMA.. NO CYANOSIS OR CLUBBING NOTED. NEURO: CRANIAL NERVES 2-12 GROSSLY INTACT. NO FOCAL NEUROLOGICAL DEFICIT NOTED. MSK: STRENGHT 4 OUT 5. NO JOINT EFFUSION. SKIN: NORMAL FOR ETHNICITY; NO ECCHYMOSIS. NO LESION. GOOD TURGOR.; NO RASHES : NORMAL EXTERNAL GENITALIA. NO ABNORMAL DRAINAGE PSYCH : APPROPRIATE MOOD AND AFFECTED; NORMAL JUDGEMENT Objective Labs Result Diagrams: 10/25/18 05:32 10/24/18 05:49 Assessment & Plan Plan: Assessment/Plan Narrative: IMPRESSION PLAN LETHARGIC. DECREASE RESPONSIVENESS. RESOLVED; BACK TO BASELINE. CONTINUE TO MONITOR FOR NOW; ASPIRATION PRECAUTIONS. POSS SVT ; RESOLVED . NO PRIOR HISTORY REPORTED. CONT TO HAVE MILD TACHYCARDIA SPORADICALLY; CONT WITH ON ORAL METOPROLOL FOR NOW; BP REMAINS IN LOW SIDE, WOULD ALSO CONSIDER DIG IF INDICATED; KEEP ON TELE AT ALL TIMES; ADJUST MANAGEMENT INDICATED ; SERIAL EKG TO FOLLOW ELEVATED TROP; REPRESENTED TROP LEAKAGE FROM TACHYCARDIA; IMPROVING; NO ACS SUSPECTED EKG DID NOT SHOW ANY SIGNFCT ST CHANGES OR BUNDLES; FOLLOW CLOSELY ELEVATED CPK ; ALSO LIKELY FROM SVT AND EXCESSIVE IMMOBILIZATION DURING DURING SURGERY; NO RHABDO SUSPECTED; IMRPOVING; CONT TO FOLLOW WITH SERIAL LABS TO FOLLOW SLURRED SPEECH; PERSIST TODAY; NO CVA SUSPECTED; CONSIDER CT TODAY; IF NEEDED MRI BRAIN IN AM; ASPIRATION PRECAUTIONS STATUS POST SPINAL FUSION. THIS IS BEING MANAGED BY SURGICAL TEAM. INCENTIVE SPIROMETRY TIMES 10 WHILE AWAKE. ACTIVITIES PER ORTHO ATTENDING. PTOT. STRICT PAIN MANAGEMENT. WATCH FOR ANY SIGN OF ACUTE COMPLICATIONS. FIVE W'S ANEMIA ; LIEKLY OF CD; COULD BE WORSENED BY HEMODILUTIONAL; DC IVF; MONITOR WITH SERIAL LABS; NO NEED TO TRANSFUSED UNLESS HGB <7 OR SEVERELY SYMPTOMATIC. THROMBOCYTOPENIA; COULD BE HEMODILUTIONAL WELL; MONITOR FOR NOW; NO FURTHER TX INDICATED HYPERTENSION PER HISTORY. PATIENT WILL BE RESTARTED ON HER HOME MEDICATION. METOPROLOL ADDED TODAY. NEEDED MEDICATION WILL BE ORDERED WELL MILD CONGESTION ON CXR; LIKELY DUE TO IV HYDRATION PRE/INTRA AND POST OP; MONITOR FOR NOW; MOBOLIZE PT ONCE ABLE TO DO ; STRICT IO; LASIX STARTED TODAY; DC IVF GET CXR IN AM; CT HEAD TODAY WILL CONT TO FOLLOW WITH YOU UNTIL DC APPRECIATED THIS KIND CONSULT Quality VTE Deep Vein Thrombosis/Pulmonary Embolism Present on Admission: No
[2018-10-26] MEDS: METOPROLOL IR 12.5 MG TABLET PO ×2 (11:54→21:29)
--- NOTE | 2018-10-26 12:56 | PT.IPTN ---
Current Diagnoses Scoliosis, unspecified (10/21/18) Spinal stenosis, lumbar region with neurogenic claudication (10/21/18) Surgery Performed Operation Date: 10/21/18 07:45 Actual Procedures p L1-2, L2-3, L3-4, L4-5 Anterior Instrumented Fusion, L5-S1 Posterior Instrumented Fusion w/ Bone Graft - Timbo Goldberg MD Operation Date: 10/23/18 07:45 Actual Procedures p T10-L1,L1-2,L2-3,L3-4,L4-5, L5-S1 Posterior Instru. Fusion w/bone graft - Timbo Goldberg MD Physical Therapy Treatment Note M2 PT-IP Current Condition Start: 10/21/18 15:09 Freq: NEEDED Status: Active Protocol: Document 10/24/18 16:43 HH (Rec: 10/24/18 17:05 HH [email or web address]) Physical Therapy Current Condition Current Condition Evaluation Date 10/22/18 Treatment Diagnosis s/p L1-2, L2-3, L3-4, L4-5 anterior fusion with cages Onset Date 10/21/18 Precautions Lumbar Precautions Log Roll No Twisting Limit Bending Lifting Restriction of 10 lbs Gait Belt above Incisional Area Abdominal Surgery Precautions Log Roll Lifting Restrictions Gait Belt above Incisional Area M3 PT-IP Subjective Start: 10/21/18 15:09 Freq: NEEDED Status: Active Protocol: Document 10/26/18 10:50 [facility] (Rec: 10/26/18 12:56 [facility] [id number]) Subjective Physical Therapy Visit Type Type Treatment Note Visit Start Time 10:50 Visit Stop Time 11:20 Total Visit Minutes 30 Number of FINE UNHAIRER Visits 2 Physical Therapy Visit Comments Patient Comments Pt refused earlier this morning but was willing after meds to get up and transfer to chair. Therapy Pain Assessment Pain When Pain Assessed During Mobility Pain Present Pain Present Pain Reported Location Back Intensity 8 Pain Management Techniques Modification of Treatment Re-positioning Timing of Activity with Medications M4 PT-IP Mobility and Gait Start: 10/21/18 15:09 Freq: NEEDED Status: Active Protocol: Document 10/26/18 10:50 [facility] (Rec: 10/26/18 12:56 [facility] [id number]) PT-Bed Mobility Assessment Rolling Type of Rolling Log Rolling Roll to Left Level of Assist Contact Guard Assistance Supine to Sit Supine to Sit Minimal Assistance 1 Person Assistance Scooting Scooting to Edge of Bed Minimal Assistance PT-Transfer Assessment Sit to and From Stand Sit to and from Stand Contact Guard Assistance Use of Upper Extremities Equipment Transfer Assistive Device Gait Belt Front Wheeled Walker Transfer Ability Level of Assist Contact Guard Assistance Comments Mobility Comments Pt BP in supine 114/53, in sitting 131/59, in standing 102/42 pt performed stand pivot to chair, BP in sitting in chair 127/59. Pt needs verbal cues to sequence log roll and suping-sit. Gait Assessment Comments Gait Comments did not attempt due to BP in standing. M5 PT-IP Objective Assessments Start: 10/21/18 15:09 Freq: NEEDED Status: Active Protocol: Document 10/24/18 10:00 HH (Rec: 10/24/18 13:43 HH [id number]) Orientation Orientation/Cognition Level of Alertness Alert M6 PT-IP Treatment Start: 10/21/18 15:09 Freq: NEEDED Status: Active Protocol: Document 10/24/18 16:43 HH (Rec: 10/24/18 17:05 HH [email or web address]) Physical Therapy Treatment Exercises Exercises Gluteal Sets Quad Sets Education Education Provided Precautions Post-Op Packet Safety Other Treatments Other Treatment Performed standing quat and glute sets x 10 diaphragmatic breathing in seated and standing position x 10 x 4 sets M7 PT-IP Assessment and Plan Start: 10/21/18 15:09 Freq: NEEDED Status: Active Protocol: Document 10/26/18 10:50 [facility] (Rec: 10/26/18 12:56 CLB [id number]) PT Summary Assessment and Plan Summary Impairments Pain Strength Balance Bed Mobility Transfers Gait Activity Tolerance Progress Towards Goals Slow Progress due to Pain Slow Progress due to Activity Tolerance Assessment Summary Pt continues to have increase in pain during mobility and a drop in BP upon standing. Pt has not been able to ambulate due to BP. Treatment Plan Other Recommendations and Next Treatment log roll; bed mobility; Focus transfer training; gait training Recommendations To Nursing Amount of Assist Needed 1 Person Assist Discharge Recommendations PT Discharge Recommendations Home with Assistance Home with 24/7 Assist SNF Rehab Outpatient PT
[2018-10-26] MEDS: GABAPENTIN 100 MG CAPSULE PO ×2 (14:19→21:31)
--- NOTE | 2018-10-26 14:27 | PT.IPTN ---
Current Diagnoses Scoliosis, unspecified (10/21/18) Spinal stenosis, lumbar region with neurogenic claudication (10/21/18) Surgery Performed Operation Date: 10/21/18 07:45 Actual Procedures p L1-2, L2-3, L3-4, L4-5 Anterior Instrumented Fusion, L5-S1 Posterior Instrumented Fusion w/ Bone Graft - Timbo Goldberg MD Operation Date: 10/23/18 07:45 Actual Procedures p T10-L1,L1-2,L2-3,L3-4,L4-5, L5-S1 Posterior Instru. Fusion w/bone graft - Timbo Goldberg MD Physical Therapy Treatment Note M2 PT-IP Current Condition Start: 10/21/18 15:09 Freq: NEEDED Status: Active Protocol: Document 10/24/18 16:43 HH (Rec: 10/24/18 17:05 HH [email or web address]) Physical Therapy Current Condition Current Condition Evaluation Date 10/22/18 Treatment Diagnosis s/p L1-2, L2-3, L3-4, L4-5 anterior fusion with cages Onset Date 10/21/18 Precautions Lumbar Precautions Log Roll No Twisting Limit Bending Lifting Restriction of 10 lbs Gait Belt above Incisional Area Abdominal Surgery Precautions Log Roll Lifting Restrictions Gait Belt above Incisional Area M3 PT-IP Subjective Start: 10/21/18 15:09 Freq: NEEDED Status: Active Protocol: Document 10/26/18 12:20 CLB (Rec: 10/26/18 14:27 CLB [id number]) Subjective Physical Therapy Visit Type Type Treatment Note Visit Start Time 12:20 Visit Stop Time 12:30 Total Visit Minutes 10 Number of BECK OPERATOR Visits 3 Physical Therapy Visit Comments Patient Comments Pt with increased pain requesting to get BTB from chair. Therapy Pain Assessment Pain When Pain Assessed During Mobility Pain Present Pain Present Pain Reported Location Back Intensity 8 M4 PT-IP Mobility and Gait Start: 10/21/18 15:09 Freq: NEEDED Status: Active Protocol: Document 10/26/18 12:20 CLB (Rec: 10/26/18 14:27 CLB [id number]) PT-Bed Mobility Assessment Rolling Type of Rolling Roll to Right Level of Assist Minimal Assistance 1 Person Assistance Sit to Supine Sit to Supine Minimal Assistance 1 Person Assistance PT-Transfer Assessment Sit to and From Stand Sit to and from Stand Minimal Assistance 1 Person Assistance Use of Upper Extremities Equipment Transfer Assistive Device Gait Belt Front Wheeled Walker Transfer Ability Level of Assist Minimal Assistance 1 Person Assistance Use of Upper Extremities Comments Mobility Comments Pt with increased need of assist with sit<>stand and bed mobility after sitting up in chair. M5 PT-IP Objective Assessments Start: 10/21/18 15:09 Freq: NEEDED Status: Active Protocol: Document 10/24/18 10:00 HH (Rec: 10/24/18 13:43 HH [id number]) Orientation Orientation/Cognition Level of Alertness Alert M6 PT-IP Treatment Start: 10/21/18 15:09 Freq: NEEDED Status: Active Protocol: Document 10/24/18 16:43 HH (Rec: 10/24/18 17:05 HH [id number]) Physical Therapy Treatment Exercises Exercises Gluteal Sets Quad Sets Education Education Provided Precautions Post-Op Packet Safety Other Treatments Other Treatment Performed standing quat and glute sets x 10 diaphragmatic breathing in seated and standing position x 10 x 4 sets M7 PT-IP Assessment and Plan Start: 10/21/18 15:09 Freq: NEEDED Status: Active Protocol: Document 10/26/18 12:20 CLB (Rec: 10/26/18 14:27 CLB [id number]) PT Summary Assessment and Plan Summary Impairments Pain Strength Balance Bed Mobility Transfers Gait Activity Tolerance Progress Towards Goals Slow Progress due to Pain Slow Progress due to Activity Tolerance Assessment Summary Pt required increased assist with sit<>stand and bed mobility after sitting up in chair for ~1 hour. Pt may require SNF rehab due to need of increased assist with bed mobility and transfers due to pain and fatigue to improve activity tolerance. Goals Bed Mobility Goal Independent Transfer Goal Independent Front Wheeled Walker Gait Goal Independent Front Wheel Walker Gait Distance >100 feet Days to Meet Goals 10 Treatment Plan Other Recommendations and Next Treatment log roll; bed mobility; Focus transfer training; gait training Recommendations To Nursing Amount of Assist Needed 2 Person Assist Discharge Recommendations PT Discharge Recommendations Home with Assistance Home with 24/ Assist SNF Rehab Outpatient PT Other Discharge Recommendations SNF Rehab
[2018-10-26] MEDS: METOPROLOL TARTRATE 5 MG/5 ML INJ IV (14:58)
[2018-10-26] MEDS: DIGOXIN 0.25 MG TABLET PO (16:54)
[2018-10-27] VITALS (9 sets, daily range): BP systolic 82–140; BP diastolic 43–88; PULSE 69–129; RESP 16–19; TEMP 36.3–36.8; O2SAT 91–97
[2018-10-27] MEDS: HYDROMORPHONE 1 MG INJ 0.2 MG IV ×2 (00:16→05:45)
[2018-10-27] MEDS: SODIUM CHLORIDE 0.9% FLUSH 10 ML IV ×3 (00:17→16:39)
[2018-10-27] MEDS: hydrOXYzine pamoate 25 MG CAPSULE PO ×2 (05:04→20:20)
[2018-10-27] MEDS: OXYCODONE IR 5 MG TABLET PO ×2 (05:04→10:07)
--- NOTE | 2018-10-27 05:25 | PC.NURSE ---
Patient is AxOx3, legally blind, she reports being able to see shapes and silhouettes. She reports having some orthostatic hypotension. I did not get her OOB during my shift. Will pass along to Day shift RN. Vital signs stable. Asymptomatic. Two BRUNA dressings to back are intact and working. The BRUNA on the left side has some old drainage. The right BRUNA has no saturation. Patient has been having pain throughout the night. Medicated with dilaudid, percolone 5mg, and vistaril. Pt reports the 10mg oxycodone working better for her, however, stating that she knows we wanted to see if her speech would be clear and not slurred with less heavy narcotics. Patient's speech has still been slightly slurred throughout the night. She reports a burning type of pain down her left leg from her groin to her knee which she reports was there pre-surgery bilaterally. Jo patent draining clear yellow urine. B/L SCDs on throughout night. T&P q2h. Tele NSR.
--- NOTE | 2018-10-27 07:57 | P.PN_ITS ---
Subjective Date Patient Seen: 10/27/18 Time Patient Seen: 07:50 Interval history: Pain is been moderate. Patient is slow to mobilize with physical therapy secondary to hypotension, SVT. Denies fever chills. No nausea vomiting. Exam Vital Signs (past 8 hours): - 10/27/18 03:59 10/27/18 05:59 Temperature 97.9 F Pulse Rate 83 Respiratory Rate 19 Blood Pressure 107/56 L Pulse Oximetry 95 96 Oxygen Delivery Method Room Air Oxygen Flow Rate 0 Narrative Exam Narrative: 82-year-old female resting comfortably in bed in no apparent distress. 2 ene dressings clean, dry and intact. Neurovascular status is intact to the bilateral lower extremities. Objective Labs Result Diagrams: 10/25/18 05:32 10/24/18 05:49 Labs: CT head/brain without contrast for slurred speech on October 26, 2018 1. No acute intracranial abnormality. 2. Mild chronic white matter small vessel ischemic changes and cerebral volume loss. Assessment & Plan Post-op Postoperative Procedures Operation Date: 10/21/18 07:45 Actual Procedures Side Surgeon p L1-2, L2-3, L3-4, L4-5 Anterior Instrumented Fusion, L5-S1 Posterior Instrumented Fusion w/ Bone Graft Timbo Goldberg MD Operation Date: 10/23/18 07:45 Actual Procedures Side Surgeon p T10-L1,L1-2,L2-3,L3-4,L4-5, L5-S1 Posterior Instru. Fusion w/bone graft Timbo Goldberg MD Postop day 4. T10 through S1 posterior fusion, T10 through S1 posterior instrumentation. Patient was consulted by hospitalist for SVT. She has also been lethargic and head CT was completed yesterday, chest x-ray pending this morning. Patient has been slow to mobilize with physical therapy. Continue to progress activity with physical therapy. Likely discharge to nursing home facility when medically stable per hospitalist. ADALBERTO aguilar. Quality VTE Deep Vein Thrombosis/Pulmonary Embolism Present on Admission: No
[2018-10-27] MEDS: DOCUSATE 100 MG CAPSULE PO ×2 (08:56→20:16)
[2018-10-27] MEDS: CELECOXIB 200 MG CAPSULE PO ×2 (08:56→20:16)
[2018-10-27] MEDS: GABAPENTIN 100 MG CAPSULE PO ×3 (08:56→20:16)
--- NOTE | 2018-10-27 09:16 | PC.NURSE ---
Dressing visualized by Carloz CALLE, shadow drainage noted on left BRUNA dressing, states continue to maintain no change needed at this time.
--- NOTE | 2018-10-27 09:17 | PC.NURSE ---
LOW BP reported by DIRECTOR COMPENSATION this morning. Patient reassessed once more awake, BP improved 106/[address] Espinoza notified and clarified that am dose of metoprolol and lasix should be held. Patient denies lightheadedness, and encouraged to increase fluid intake. Deysi castillo per MD order, tolerated well, continue to monitor.
--- NOTE | 2018-10-27 09:55 | P.PN_ITS ---
Subjective Date Patient Seen: 10/27/18 Time Patient Seen: 09:53 Interval history: FEELING BETTER THIS AM WOULD LIKE HER PAIN MEDS INCREASED NO FEVER OR CHILLS NO CP/SOB NO OTHER COMPLAINTS SPOKE TO NURSING REGARDING CASE Exam Vital Signs (past 8 hours): - 10/27/18 03:59 10/27/18 05:59 10/27/18 07:25 Temperature 97.9 F 98.3 F Pulse Rate 83 74 Respiratory Rate 19 18 Blood Pressure 107/56 L 82/43 L Pulse Oximetry 95 96 91 Oxygen Delivery Method Room Air Oxygen Flow Rate 0 Narrative Exam Narrative: NO ACUTE DISTRESS. PATIENT IS ALERT ORIENTED X3. VITAL SIGNS STABLE HEAD ATRAUMATIC NORMOCEPHALIC NECK : SUPPLE WITHOUT ADENOPATHY NO CAROTID BRUITS EYE: EOMI, PERRLA, NORMAL CONJUNCTIVA; NO JAUNDICE CHEST: REGULAR RATE. NO RUBS. PMI IS NON DISPLACED. NO MURMURS; NORMAL S1- S2 PULMONARY: DECREASED BS OVER THE BASES. MILD BIBASILAR CRACKLES NOTED; NO INCREASED DULLNESS TO PERCUSSION ABDOMEN: SOFT. NONTENDER. NONDISTENDED. BOWEL SOUNDS ARE PRESENT IN ALL 4 QUADRANTS. NO MASS. EXTREMITIES: NO EDEMA.. NO CYANOSIS CLUBBING NOTED. NEURO: CRANIAL NERVES 2-12 GROSSLY INTACT. NO FOCAL NEUROLOGICAL DEFICIT NOTED. MSK: NORMAL RANGE OF MOTION FOR AGE. NO JOINT EFFUSION. SKIN: NORMAL FOR ETHNICITY; NO ECCHYMOSIS. NO LESION. GOOD TURGOR.; NO RASHES : NORMAL EXTERNAL GENITALIA. PSYCH : APPROPRIATE MOOD AND AFFECT. ALERT AWAKE ORIENTED X3 Objective Labs Result Diagrams: 10/25/18 05:32 10/24/18 05:49 Assessment & Plan Plan: Assessment/Plan Narrative: IMPRESSION PLAN LETHARGIC. DECREASE RESPONSIVENESS. RESOLVED; BACK TO BASELINE. CONTINUE TO MONITOR FOR NOW; ASPIRATION PRECAUTIONS. POSS SVT ; RESOLVED . NO PRIOR HISTORY REPORTED. CONT TO HAVE MILD TACHYCARDIA SPORADICALLY; CONT WITH ON ORAL METOPROLOL FOR NOW; BP REMAINS IN LOW SIDE, WOULD ALSO COSNIDER DIG IF INDICATED; KEEP ON TELE AT ALL TIMES; ADJUST MANAGEMENT INDICATED ; SERIAL EKG TO FOLLOW ELEVATED TROP; REPRESENTED TROP LEAKAGE FROM TACHYCARDIA; IMPROVING; NO ACS SUSPECTED EKG DID NOT SHOW ANY SIGNFCT ST CHANGES OR BUNDLES; FOLLOW CLOSELY ELEVATED CPK ; ALSO LIKELY FROM SVT AND EXCESSIVE IMMOBILIZATION DURING DURING SURGERY; NO RHABDO SUSPECTED; IMRPOVING; CONT TO FOLLOW WITH SERIAL LABS TO FOLLOW SLURRED SPEECH; NO CVA SUSPECTED; LIKELY DUE TO OPIOIDS MEDS; DOSES WILL BE ADJUSTED TODAY AND WILL RECOMM TO LIMIT THEIR USE IN THIS CASE; TRAMADOL ORDERED ; CONSIDER CT/MRI BRAIN IF INDICATED ONLY STATUS POST SPINAL FUSION. THIS IS BEING MANAGED BY SURGICAL TEAM. INCENTIVE SPIROMETRY TIMES 10 WHILE AWAKE. ACTIVITIES PER ORTHO ATTENDING. PTOT. STRICT PAIN MANAGEMENT. WATCH FOR ANY SIGN OF ACUTE COMPLICATIONS. FIVE W'S ANEMIA ; LIEKLY OF CD; COULD BE WORSENED BY HEMODILUTIONAL; DC IVF; MONITOR WITH SERIAL LABS; NO NEED TO TRANSFUSED UNLESS HGB <7 OR SEVERELY SYMPTOMATIC. THROMBOCYTOPENIA; COULD BE HEMODILUTIONAL WELL; MONITOR FOR NOW; NO FURTHER TX INDICATED HYPERTENSION PER HISTORY. PATIENT WILL BE RESTARTED ON HER HOME MEDICATION. METOPROLOL ADDED TODAY. NEEDED MEDICATION WILL BE ORDERED WELL MILD CONGESTION ON CXR; LIKELY DUE TO IV HYDRATION PRE/INTRA AND POST OP; MONITOR FOR NOW; MOBOLIZE PT ONCE ABLE TO DO ; STRICT IO; LASIX STARTED TODAY; DC IVF WILL SIGN OF THE CASE TODAY PATIENT APPEARS STABLE MEDICALLY AT THIS TIME DC PER SURGICAL TEAM THANKS FOR ALLOWING US TO PARTICIPATE IN THIS PATIENT S CARE Quality VTE Deep Vein Thrombosis/Pulmonary Embolism Present on Admission: No
[2018-10-27] MEDS: OXYCODONE IR 5 MG TABLET 10 MG PO ×4 (10:26→22:34)
--- NOTE | 2018-10-27 11:42 | PT.IPTN ---
Current Diagnoses Scoliosis, unspecified (10/21/18) Spinal stenosis, lumbar region with neurogenic claudication (10/21/18) Surgery Performed Operation Date: 10/21/18 07:45 Actual Procedures p L1-2, L2-3, L3-4, L4-5 Anterior Instrumented Fusion, L5-S1 Posterior Instrumented Fusion w/ Bone Graft - Timbo Goldberg MD Operation Date: 10/23/18 07:45 Actual Procedures p T10-L1,L1-2,L2-3,L3-4,L4-5, L5-S1 Posterior Instru. Fusion w/bone graft - Timbo Goldberg MD Physical Therapy Treatment Note M2 PT-IP Current Condition Start: 10/21/18 15:09 Freq: NEEDED Status: Active Protocol: Document 10/27/18 10:30 HH (Rec: 10/27/18 11:41 [id number]) Physical Therapy Current Condition Current Condition Evaluation Date 10/22/18 Treatment Diagnosis s/p L1-2, L2-3, L3-4, L4-5 anterior fusion with cages Onset Date 10/21/18 Precautions Lumbar Precautions Log Roll No Twisting Limit Bending Lifting Restriction of 10 lbs Gait Belt above Incisional Area Abdominal Surgery Precautions Log Roll Lifting Restrictions Gait Belt above Incisional Area Other Precautions require constant BP monitoring due to recent tachycardia and low BP during mobility. M3 PT-IP Subjective Start: 10/21/18 15:09 Freq: NEEDED Status: Active Protocol: Document 10/27/18 10:30 HH (Rec: 10/27/18 11:41 [id number]) Subjective Physical Therapy Visit Type Type Treatment Note Visit Start Time 10:30 Visit Stop Time 11:15 Total Visit Minutes 45 Notes Pt agreeable to mobilize with PT in her room whose is there as well. Pt reports 5 -6/10 for the past 2 days. HARRIS Balderas reports pt c/o increased pain and noticeable low BP and tachycardia over the weekend who will receive increase in dosage of oxycodone for pain management. Physical Therapy Visit Comments Patient Comments Pt reports she has more pain yesterday and requested to increase her dosage of oxycodone for pain management. pt states I was sitting up in the reclining chair yesterday morning and it was painful for me. But I've been doing my log roll with the use of bedrails to help every hour or so. Turning to R is harder than L. Therapy Pain Assessment Pain When Pain Assessed During Mobility Pain Present Pain Present Pain Reported Location Back Intensity 5 Scale Used Numeric (1 - 10) Description Acute Dull Pain Management Techniques Re-positioning M4 PT-IP Mobility and Gait Start: 10/21/18 15:09 Freq: NEEDED Status: Active Protocol: Document 10/27/18 10:30 HH (Rec: 10/27/18 11:41 HH [id number]) PT-Bed Mobility Assessment Rolling Type of Rolling Log Rolling Level of Assist Independent Standby Assistance Supine to Sit Supine to Sit Minimal Assistance Bedrails Sit to Supine Sit to Supine Minimal Assistance Scooting Scooting to Edge of Bed Standby Assistance PT-Transfer Assessment Sit to and From Stand Sit to and from Stand Contact Guard Assistance Equipment Transfer Assistive Device Gait Belt Front Wheeled Walker Transfers Transfer Destination Bed Bedside Commode Transfer Ability Level of Assist Contact Guard Assistance Comments Mobility Comments Pt performs log roll I/SBA with bedrails and contralateral LE to push off x 6 today. Pt reports log rolling gets easier and decrease in pain 2/3 times of bed mobility after 2/3 trials. Pt requires min A from supine to sit / sit to supine to unweight B LE in order to get to EOB. Pt also performs commode transfer from bed with FWW CGA. Pt does c/o weakness on her R LE who requested to bed rest after amb and toileting. supine BP 121/ 64 HR 72 sitting BP 114/64 HR 80 standing BP 117/47 HR 85 post amb and commode transfer BP 102/61 HR 75 Gait Assessment Gait Gait Assistance Required: Contact Guard Assist Distance (Feet) 8 Assistive Devices Assistive Device Gait Belt Gait Deviations General Gait Pattern Decreased Stride Length Decreased Feet Clearance Factors Limiting Gait Function Factors Limiting Gait Function Decreased Activity Tolerance Decreased Strength Limited Range of Motion Pain Poor Balance Comments Gait Comments Pt amb 4 feet x 2 with FWW CGA and gait belt. Pt c/o pain 5- 6/10 during mobility. She demonstrates decreased stride length and feet clearance R LE > L LE. pt also c/o weakness on R LE during mobility who requested for bedrest after amb from bed to commode. PT-Balance Assessment Sitting Balance and Reactions Static Sitting Balance Ability Good Dynamic Sitting Balance Ability Good Standing Balance and Reactions Static Standing Balance Ability Good Dynamic Standing Balance Ability Fair M5 PT-IP Objective Assessments Start: 10/21/18 15:09 Freq: NEEDED Status: Active Protocol: Document 10/27/18 10:30 HH (Rec: 10/27/18 11:41 [id number]) Orientation Orientation/Cognition Level of Alertness Alert Strength Upper Extremity Strength Assessment Within Functional Limits Lower Extremity Strength Assessment Right Impaired M6 PT-IP Treatment Start: 10/21/18 15:09 Freq: NEEDED Status: Active Protocol: Document 10/27/18 10:30 HH (Rec: 10/27/18 11:41 [id number]) Physical Therapy Treatment Exercises Exercises Ankle Pumps Gluteal Sets Quad Sets Heel Slides Other Treatments Other Treatment Performed bilateral leg press against PT iso leg press with heels against bed M7 PT-IP Assessment and Plan Start: 10/21/18 15:09 Freq: NEEDED Status: Active Protocol: Document 10/27/18 10:30 HH (Rec: 10/27/18 11:41 [id number]) PT Summary Assessment and Plan Potential Rehabilitation Potential Good Status of Condition at Evaluation Evolving Summary Impairments Pain Strength Balance Bed Mobility Transfers Gait Activity Tolerance Progress Towards Goals Slow Progress due to Pain Assessment Summary Pt progress slowly with PT due to pain. Pt received increased dosage of oxycodone 30 mins before PT session. Pt performed well today who requires less assistance for bed mobility. Pt and her understand and able to recall all precautions and therex. Pt also able to amb from bed to commode for toileting for the first time since sx with stable BP and HR . However, pt is still not safe to d/c home until she reaches her functional rehab goals in a safe manner. Recommend d/c to SNF due to her slow rehab progress. Goals Bed Mobility Goal Independent Standby Assistance Gait Goal Standby Assistance Frequency of Treatment Frequency Of Treatment Twice a Day Treatment Plan Other Recommendations and Next Treatment Bed mob Focus commode/ chair transfer gait training Recommendations To Nursing Amount of Assist Needed 2 Person Assist Discharge Recommendations PT Discharge Recommendations SNF Rehab
--- NOTE | 2018-10-27 13:46 | OT.IP.TRT ---
Current Diagnoses Scoliosis, unspecified (10/21/18) Spinal stenosis, lumbar region with neurogenic claudication (10/21/18) Surgery Performed Operation Date: 10/21/18 07:45 Actual Procedures p L1-2, L2-3, L3-4, L4-5 Anterior Instrumented Fusion, L5-S1 Posterior Instrumented Fusion w/ Bone Graft - Timbo Goldberg MD Operation Date: 10/23/18 07:45 Actual Procedures p T10-L1,L1-2,L2-3,L3-4,L4-5, L5-S1 Posterior Instru. Fusion w/bone graft - Timbo Goldberg MD Occupational Therapy Treatment Note M2 OT-IP Current Condition Start: 10/22/18 11:39 Freq: Status: Active Protocol: Document 10/25/18 09:48 [facility] (Rec: 10/25/18 10:09 [facility] [id number]) Occupational Therapy Current Condition Current Condition Evaluation Date 10/25/18 Treatment Diagnosis Lumbar Stenosis with radiculopathy Diagnosis Onset Date 10/21/18 Post Operative Precautions Lumbar Precautions Log Roll No Twisting Limit Bending Lifting Restriction of 10 lbs Gait Belt above Incisional Area Abdominal Surgery Precautions Log Roll Lifting Restrictions Gait Belt above Incisional Area M3 OT- IP Subjective and Pain Start: 10/22/18 11:39 Freq: Status: Active Protocol: Document 10/27/18 13:46 PJM (Rec: 10/27/18 16:59 PJM [id number]) OT- Subjective Occupational Therapy Visit Type Type Treatment Note Visit Start Time 13:15 Visit Stop Time 13:46 Total Visit Minutes 31 Occupational Therapy Visit Comments Patient Comments It is really hurting in my L groin and front of my thigh. It's just really burning. I had this before surgery in both legs but it has been gone since surgery. Patient/Caregiver Goals to get stronger, have less pain, go home when stronger OT Pain Assessment Pain When Pain Assessed in chair Pain Present Pain Present Pain Reported Location Left Anterior Thigh Intensity 9 Scale Used Numeric (1 - 10) Description Acute Burning Pain Behaviors Facial Grimacing Guarding Holding Area Restlessness Wincing Management Techniques Distraction Re-positioning Timing of Activity with Medications M4 OT- IP ADL's Start: 10/22/18 11:39 Freq: Status: Active Protocol: Document 10/27/18 13:46 PJM (Rec: 10/27/18 16:59 PJM [id number]) OT ADL-Dressing General Eval Lower Body Dressing Ability Minimal Assistance Areas Needing Assistance Retrieving/Set-up of Clothing Socks Assistive Devices Dressing Assistive Devices Technical Analyst Sock Aid Comments OT Dressing Comments Began education and practice with new car driver and sock aide to don and doff socks, but limited by L anterior thigh pain. M6 OT- IP Functional Cognition Start: 10/22/18 11:39 Freq: Status: Active Protocol: Document 10/27/18 13:46 PJM (Rec: 10/27/18 16:59 [facility] [id number]) Cognitive Factors Limiting Selfcare Function Cognitive Ability Level of Alertness Alert Patient Orientation Name Age Birthday Month Date Year Day of Week Place Situation Attention Span Ability Capable of Focused Attention Unable to Sustain Attention Cognitive Comments Cognitive Assessment Comments Pt distracted by high pain level this session. M7 OT- IP Mobility and Balance Start: 10/22/18 11:39 Freq: Status: Active Protocol: Document 10/27/18 13:46 PJM (Rec: 10/27/18 16:59 [facility] [id number]) OT- Bed Mobility Assessment Rolling Level of Assistance Contact Guard Assistance 1 Person Assistance Supine to Sit Supine to Sit Assist Minimal Assistance Sit to Supine Sit to Supine Assist Contact Guard Assistance Scooting Scooting to Edge of Bed Standby Assistance OT-Transfer Assessment Sit to and From Stand Sit to and from Stand Contact Guard Assistance Transfers Transfer Ability Contact Guard Assistance Technique Transfer Destination Chair Transfer Technique Stand Step Pivot Devices Transfer Assistive Devices Gait Belt Front Wheeled Walker Comments Mobility Comments Pt needs min verbal cues to avoid twisting and to get B LE 's off bed before trying to sit up. OT- Balance Assessment Sitting Balance and Reactions Static Sitting Balance Ability Good Dynamic Sitting Balance Ability Good Standing Balance and Reactions Static Standing Balance Ability Good M9 OT- IP Assessment and Plan Start: 10/22/18 11:39 Freq: Status: Active Protocol: Document 10/27/18 13:46 PJM (Rec: 10/27/18 16:59 [facility] [id number]) OT Summary Assessment and Plan Potential Rehabilitation Potential Good Summary OT Impairments Pain Balance Functional Mobility Dressing Toileting Bathing Toilet Transfers Shower Transfers Progress Towards Goals Slow Progress due to Pain Slow Progress due to Medical Issues Assessment Summary Pt seen for bed mobility and lower body dressing training with adaptive equipment but participation limited by new onset severe groin burning pain in L anterior thigh and in sitting so pt tolerated only 10 min in chair this session. RN reports pain meds not due for 45 min. Pt most comfortable in L sidelying in bed. Pt has good potential to increase independence once pain better controlled. Recommend SNF stay prior to return home with with daughter (retired RN) to assist PRN. Goals Self-Feeding Goal Standby Assistance Grooming Goal Standby Assistance Dressing Goal Minimal Assistance Toileting Goal Standby Assistance Bathing Goal Contact Guard Assistance Toilet Transfer Goal Standby Assistance Shower Transfer Goal Minimal Assistance Patient/Caregiver Education Goal Demonstrate Post-Op Precautions Caregiver Independent Assisting Patient Days to Meet Goals 7 Frequency of Treatment Frequency Of Treatment Once a Day Treatment Plan OT Treatment Plan ADL Training Functional Cognition Training Functional Mobility Patient/Family Education Discharge Planning Other Treatment Recommendations and Next Transfer to BS with MODA x1, Treatment Focus LB dressing with AED MODA Discharge Recommendations OT Discharge Recommendations SNF Rehab Home Equipment Needs BSC, shower chair, LB AED, FWW
--- NOTE | 2018-10-27 14:32 | CM.DPC ---
Referral and D/C packet faxed to [facility] per Neda
[2018-10-27] MEDS: METOPROLOL IR 12.5 MG TABLET PO ×2 (14:46→20:16)
--- NOTE | 2018-10-27 14:51 | CM.DPC ---
Addendum entered by Neda Willis LPN 10/27/18 16:37: Just spoke with [facility]. Anisa confirms they can accept pt when she is stable for d/c. Will follow tomorrow Original Note: DCP: continued. Case received this morning, EMR reviewed and noted that a home vs snf d/c plann was being looked at. Ortho ALVA Ledesma had been in earlier and written a progress note. Hospitalist team was consulting. DCP: CM: hand off information showed that d/c was likely later in the week with an initial referral sent yesterday to [facility] as choice 1. Ortho ALVA Mace was in this afternoon and reported that she had talked with the hospitalist, he had said pt was fine to go from hospitalist standpoint and she was here to do the d/c to snf. Called [facility] and spoke with tacho/Anisa. She stated that no info had been given to her re this patient and she could find no notes from her colleague on yesterday. Said she would review all as soon as received and take it to her nursing team. [facility] fax[facility] referral info to her [phone], including the snf orders. (No d/c summary in place, only an amended progress note from PA staff.) Discussed this with HARRIS Balderas and then met with pt. Pt reports that she is very surprised she is being discharged now. I don't remember anyone coming in this afternoon to tell me I am discharging and I am very concerned re new pain in my left leg that started late afternoon yesterday. HARRIS Balderas noted she did not know if ALVA Mace was aware of this and she will contact her now. Pt expresses concern as I was able to sit up yesterday for an hour without pain. Today I cannot do this and I am worried as that is one of thed reasons I needed this surgery. I need to understand what is going on..... HARRIS Balderas also noted that pt's daughter Beverly had called earlier; she had thought that her mother would be here until mid week. She expressed desire for a call from the physician with update on her mother.. Andrey noted a few minutes later that pt's heart rate was again elevated and that she had notified the hospitalist. Assured pt that she would not d/c until these issues have been addressed and reminded her of her Medicare appeal rights. OTILIO then presented her with ELMIRA #2 for signature and she explained this document to Beverly who apparently called the room during this discussion. P: snf when stable for same and as per above notes. [facility] is looking at referral, acceptance expected. Will follow up tomorrow. PASRR: needed.
--- NOTE | 2018-10-27 16:35 | PT.IPTN ---
Current Diagnoses Scoliosis, unspecified (10/21/18) Spinal stenosis, lumbar region with neurogenic claudication (10/21/18) Surgery Performed Operation Date: 10/21/18 07:45 Actual Procedures p L1-2, L2-3, L3-4, L4-5 Anterior Instrumented Fusion, L5-S1 Posterior Instrumented Fusion w/ Bone Graft - Timbo Goldberg MD Operation Date: 10/23/18 07:45 Actual Procedures p T10-L1,L1-2,L2-3,L3-4,L4-5, L5-S1 Posterior Instru. Fusion w/bone graft - Timbo Goldberg MD Physical Therapy Treatment Note M2 PT-IP Current Condition Start: 10/21/18 15:09 Freq: NEEDED Status: Active Protocol: Document 10/27/18 10:30 HH (Rec: 10/27/18 11:41 HH [id number]) Physical Therapy Current Condition Current Condition Evaluation Date 10/22/18 Treatment Diagnosis s/p L1-2, L2-3, L3-4, L4-5 anterior fusion with cages Onset Date 10/21/18 Precautions Lumbar Precautions Log Roll No Twisting Limit Bending Lifting Restriction of 10 lbs Gait Belt above Incisional Area Abdominal Surgery Precautions Log Roll Lifting Restrictions Gait Belt above Incisional Area Other Precautions require constant BP monitoring due to recent tachycardia and low BP during mobility. M3 PT-IP Subjective Start: 10/21/18 15:09 Freq: NEEDED Status: Active Protocol: Document 10/27/18 15:45 HH (Rec: 10/27/18 16:35 HH [email or web address]) Subjective Physical Therapy Visit Type Type Treatment Note Visit Start Time 15:45 Visit Stop Time 16:15 Total Visit Minutes 30 Notes Pt agreeable to mobilize with PT. Pt reports 6/10 LBP. Pt also did a stand pivot transfer from bed to bedside commode with nursing staff earlier for toileting. Physical Therapy Visit Comments Patient Comments Pt reports I've been doing my log roll pretty often and i just got up with nursing staff to use the commode. I spoke to nursing staff and MD to address my pain at L LE. Therapy Pain Assessment Pain When Pain Assessed During Mobility Pain Present Pain Present Pain Reported Location Back Intensity 6 Scale Used Numeric (1 - 10) Description Acute Dull Pain Management Techniques Re-positioning M4 PT-IP Mobility and Gait Start: 10/21/18 15:09 Freq: NEEDED Status: Active Protocol: Document 10/27/18 15:45 (Rec: 10/27/18 16:35 HH [id number]) PT-Bed Mobility Assessment Rolling Type of Rolling Log Rolling Level of Assist Independent Standby Assistance Supine to Sit Supine to Sit Minimal Assistance Sit to Supine Sit to Supine Minimal Assistance Scooting Scooting to Edge of Bed Standby Assistance PT-Transfer Assessment Sit to and From Stand Sit to and from Stand Standby Assistance Use of Upper Extremities Equipment Transfer Assistive Device Gait Belt Front Wheeled Walker Transfers Transfer Destination Bed Transfer Ability Level of Assist Standby Assistance Comments Mobility Comments supine BP : 123/64 HR 89 sitting BP: 123/64 HR 89 post transfer BP: 129/65 HR 89 Pt performs log roll to both side I/ SBA with the use of contralateral leg for push off and bedrails to pull. Pt states my pain has gone down a bit since brian been rolling more. Pt then supine to sit to get to EOB on her ride side this time with min A and bedrail. Pt then scoot towards EOB with the use FWW followed by sit to stand with FWW SBA. Pt is able to maintain stable BP and HR during transfer activities who did not appear acute distress. Gait Assessment Gait Gait Assistance Required: Contact Guard Assist Distance (Feet) 10 Assistive Devices Assistive Device Gait Belt Front Wheeled Walker Gait Deviations General Gait Pattern Decreased Stride Length Decreased Feet Clearance Factors Limiting Gait Function Factors Limiting Gait Function Decreased Activity Tolerance Decreased Strength Pain Poor Balance Poor Safety Awareness Comments Gait Comments Pt amb with PT from EOB to the hallway for 5ft x 2 with FWW CGA. Pt did not show sign of LOB but decreased stride length and feet clearance. Pt also did not demonstrate acute distress and R LE buckling during amb. Pt requests to bedrest due to fatigue but she also states My right leg didnt feel weaker than the L side like before but my body just feel tired this time. Pt 's BP remains post gait training. Stair Climbing Assessment Comments Stair Climbing Comments did not attempt PT-Balance Assessment Sitting Balance and Reactions Static Sitting Balance Ability Normal Dynamic Sitting Balance Ability Good Standing Balance and Reactions Static Standing Balance Ability Good Dynamic Standing Balance Ability Good M5 PT-IP Objective Assessments Start: 10/21/18 15:09 Freq: NEEDED Status: Active Protocol: Document 10/27/18 15:45 HH (Rec: 10/27/18 16:35 [id number]) Orientation Orientation/Cognition Level of Alertness Alert Gross Range of Motion Upper Extremity ROM Assessment Within Functional Limits Lower Extremity ROM Assessment Within Functional Limits Strength Upper Extremity Strength Assessment Within Functional Limits Lower Extremity Strength Assessment Within Functional Limits Coordination Assessment Gross Coordination Gross Coordination WNL M6 PT-IP Treatment Start: 10/21/18 15:09 Freq: NEEDED Status: Active Protocol: Document 10/27/18 15:45 (Rec: 10/27/18 16:35 [id number]) Physical Therapy Treatment Exercises Exercises Ankle Pumps Gluteal Sets Quad Sets Heel Slides Education Education Provided Precautions Post-Op Packet Safety Other Treatments Other Treatment Performed supine leg press against PT supine leg press with red thera band M7 PT-IP Assessment and Plan Start: 10/21/18 15:09 Freq: NEEDED Status: Active Protocol: Document 10/27/18 15:45 (Rec: 10/27/18 16:35 [id number]) PT Summary Assessment and Plan Potential Rehabilitation Potential Good Status of Condition at Evaluation Evolving Summary Impairments Pain ROM Strength Balance Bed Mobility Transfers Gait Activity Tolerance Progress Towards Goals Slow Progress due to Pain Assessment Summary Pt demonstrates improved rehab progress with increased amb distance and nehal longer functional activity today. Pt is able to perform 2 commode transfer early this morning and afternoon with PT and nursing staff along with stable BP and HR. Pt also amb out of her room for the first time this afternoon. Pt did not c/o weakness of her R LE more than her L LE. However, pt currently requires cont skilled therapy to increase her overall functional strength and mobility. Communicated with RN and CM that pt is going to transfer to SNF to cont rehab. Goals Bed Mobility Goal Standby Assistance Contact Guard Assistance Transfer Goal Standby Assistance Gait Goal Standby Assistance Days to Meet Goals 1 Frequency of Treatment Frequency Of Treatment Twice a Day Treatment Plan Physical Therapy Treatment Plan Bed Mobility Training Transfer Training Gait Training Therapeutic Exercise Balance Retraining Post Op Education Discharge Planning Hot or Cold Pack Neuromuscular Re-ed Other Recommendations and Next Treatment bed mob supine to sit Focus stand pivot transfer gait training Recommendations To Nursing Amount of Assist Needed 1 Person Assist Discharge Recommendations PT Discharge Recommendations SNF Rehab
[2018-10-27] MEDS: SENNOSIDES 8.6 MG TABLET 17.2 MG PO (20:17)
[2018-10-28] MEDS: TRAMADOL 50 MG TABLET PO ×3 (00:17→12:14)
[2018-10-28] MEDS: OXYCODONE IR 5 MG TABLET 10 MG PO ×3 (02:23→14:41)
[2018-10-28 04:10] VITALS: BP 118/58; PULSE 71; RESP 16; TEMP 36.4; O2SAT 95
[2018-10-28] MEDS: SODIUM CHLORIDE 0.9% FLUSH 10 ML IV ×2 (07:45→20:42)
[2018-10-28] MEDS: CELECOXIB 200 MG CAPSULE PO ×2 (07:54→20:43)
[2018-10-28] MEDS: GABAPENTIN 100 MG CAPSULE PO ×3 (07:54→20:43)
[2018-10-28] MEDS: DOCUSATE 100 MG CAPSULE PO ×2 (07:54→20:43)
[2018-10-28] MEDS: FUROSEMIDE 20 MG TABLET PO (07:54)
[2018-10-28] MEDS: METOPROLOL IR 12.5 MG TABLET PO ×2 (07:55→20:43)
[2018-10-28 07:56] VITALS: BP 140/63; PULSE 74
[2018-10-28] MEDS: MAGNESIUM HYDROXIDE 30 ML UDC PO (08:14)
[2018-10-28 08:46] VITALS: O2SAT 96
--- NOTE | 2018-10-28 09:07 | PM.PNPO.1 ---
Subjective Date Patient Seen: 10/28/18 Time Patient Seen: 09:07 Interval history: Hospital day 8, postop day 2 following her 2nd surgery with fusion T10 through S1 by Dr. Goldberg. Patient has been slowly progressing. She did have discharge orders yesterday but noted increased pain with ambulation. She was scheduled to go to [facility]. She did have oxycodone ordered yesterday for pain by hospitalist. States she has had some increase in back pain and left leg pain the last day or so. Exam Vital Signs (past 8 hours): - 10/28/18 04:10 10/28/18 07:56 10/28/18 08:46 Temperature 97.5 F L Pulse Rate 71 74 Respiratory Rate 16 Blood Pressure 118/58 L 140/63 Pulse Oximetry 95 96 Oxygen Delivery Method Room Air Oxygen Flow Rate 0 Narrative Exam Narrative: Alert, oriented in no acute distress sitting on commode. Back. Kirby dressings to lumbar area are dry with areas of shadowing to the left dressing. No signs of infection or inflammation. Legs. SLR from sitting position to 90? bilateral without radicular or low back pain. No calf pain or swelling. Pulses symmetrical. Good sensation to touch to lower legs. Objective Labs Result Diagrams: 10/25/18 05:32 10/24/18 05:49 Assessment & Plan Post-op Postoperative Procedures Operation Date: 10/21/18 07:45 Actual Procedures Side Surgeon p L1-2, L2-3, L3-4, L4-5 Anterior Instrumented Fusion, L5-S1 Posterior Instrumented Fusion w/ Bone Graft Timbo Goldberg MD Plan: Will head dexamethasone 4 mg q.8h to see if this will help with her back and leg pain. Work with PT again today. Anticipate discharge to SNF tomorrow if she is stable. Operation Date: 10/23/18 07:45 Actual Procedures Side Surgeon p T10-L1,L1-2,L2-3,L3-4,L4-5, L5-S1 Posterior Instru. Fusion w/bone graft Timbo Goldberg MD Quality VTE Deep Vein Thrombosis/Pulmonary Embolism Present on Admission: No
--- NOTE | 2018-10-28 09:11 | PT.IPTN ---
Current Diagnoses Scoliosis, unspecified (10/21/18) Spinal stenosis, lumbar region with neurogenic claudication (10/21/18) Surgery Performed Operation Date: 10/21/18 07:45 Actual Procedures p L1-2, L2-3, L3-4, L4-5 Anterior Instrumented Fusion, L5-S1 Posterior Instrumented Fusion w/ Bone Graft - Timbo Goldberg MD Operation Date: 10/23/18 07:45 Actual Procedures p T10-L1,L1-2,L2-3,L3-4,L4-5, L5-S1 Posterior Instru. Fusion w/bone graft - Timbo Goldberg MD Physical Therapy Treatment Note M2 PT-IP Current Condition Start: 10/21/18 15:09 Freq: NEEDED Status: Active Protocol: Document 10/27/18 10:30 HH (Rec: 10/27/18 11:41 HH [id number]) Physical Therapy Current Condition Current Condition Evaluation Date 10/22/18 Treatment Diagnosis s/p L1-2, L2-3, L3-4, L4-5 anterior fusion with cages Onset Date 10/21/18 Precautions Lumbar Precautions Log Roll No Twisting Limit Bending Lifting Restriction of 10 lbs Gait Belt above Incisional Area Abdominal Surgery Precautions Log Roll Lifting Restrictions Gait Belt above Incisional Area Other Precautions require constant BP monitoring due to recent tachycardia and low BP during mobility. M3 PT-IP Subjective Start: 10/21/18 15:09 Freq: NEEDED Status: Active Protocol: Document 10/28/18 09:01 SA (Rec: 10/28/18 09:11 [id number]) Subjective Physical Therapy Visit Type Type Treatment Note Visit Start Time 08:38 Visit Stop Time 09:01 Total Visit Minutes 23 Notes Pt supine in bed and agreeable to get OOB. Vitals WNLs Physical Therapy Visit Comments Patient Comments Reports 6/10 back pain at rest and with mobility. Therapy Pain Assessment Pain When Pain Assessed During Mobility Pain Present Pain Present Pain Reported Location Left Anterior Thigh Intensity 6 Scale Used Numeric (1 - 10) Pain Management Techniques Modification of Treatment Re-positioning Timing of Activity with Medications M4 PT-IP Mobility and Gait Start: 10/21/18 15:09 Freq: NEEDED Status: Active Protocol: Document 10/28/18 09:01 SA (Rec: 10/28/18 09:11 [id number]) PT-Bed Mobility Assessment Rolling Type of Rolling Log Rolling Level of Assist Standby Assistance Supine to Sit Supine to Sit Minimal Assistance Sit to Supine Sit to Supine Contact Guard Assistance Scooting Scooting to Edge of Bed Standby Assistance Scooting Up and Down in Bed Minimal Assistance PT-Transfer Assessment Sit to and From Stand Sit to and from Stand Standby Assistance Use of Upper Extremities Equipment Transfer Assistive Device Gait Belt Front Wheeled Walker Transfers Transfer Destination Bed Transfer Ability Level of Assist Standby Assistance Comments Mobility Comments Pt demonstrated log roll technique in/out of bed with use of bed rail and with SBA and min cues. Reviewed precautions but pateint aware and able to recite them. Gaurded mobility movements d/t 6/10 pain. Gait Assessment Gait Gait Assistance Required: Contact Guard Assist Distance (Feet) 30 Able to Maintain Weight Bearing Status Yes During Gait Assistive Devices Assistive Device Gait Belt Front Wheeled Walker Gait Deviations General Gait Pattern Decreased Stride Length Decreased Feet Clearance Flexed Trunk Factors Limiting Gait Function Factors Limiting Gait Function Decreased Activity Tolerance Decreased Strength Pain Poor Balance Poor Safety Awareness Comments Gait Comments Pt able to ambulate out in hallway with FWW/CGA and Min cues for upright posture and safe use of AD, increased diststance but pt fatigues rapidly. M5 PT-IP Objective Assessments Start: 10/21/18 15:09 Freq: NEEDED Status: Active Protocol: Document 10/27/18 15:45 (Rec: 10/27/18 16:35 [email or web address]) Orientation Orientation/Cognition Level of Alertness Alert Gross Range of Motion Upper Extremity ROM Assessment Within Functional Limits Lower Extremity ROM Assessment Within Functional Limits Strength Upper Extremity Strength Assessment Within Functional Limits Lower Extremity Strength Assessment Within Functional Limits Coordination Assessment Gross Coordination Gross Coordination WNL M6 PT-IP Treatment Start: 10/21/18 15:09 Freq: NEEDED Status: Active Protocol: Document 10/28/18 09:01 (Rec: 10/28/18 09:11 SA [id number]) Physical Therapy Treatment Exercises Exercises Ankle Pumps Gluteal Sets Quad Sets Heel Slides Education Education Provided Precautions Post-Op Packet Safety Other Treatments Other Treatment Performed Pt tolerated sitting at EOB for LE ther ex x 5 min, states sitting is her most uncomfortable position. M7 PT-IP Assessment and Plan Start: 10/21/18 15:09 Freq: NEEDED Status: Active Protocol: Document 10/28/18 09:01 SA (Rec: 10/28/18 09:11 [id number]) PT Summary Assessment and Plan Potential Rehabilitation Potential Good Status of Condition at Evaluation Evolving Summary Assessment Summary Pt with improving activity tolerance and knowledge of precautions. Able to mobilize with SBA-CGA and some safety cues. Frequency of Treatment Frequency Of Treatment Twice a Day Recommendations To Nursing Amount of Assist Needed 1 Person Assist Discharge Recommendations PT Discharge Recommendations SNF Rehab
--- NOTE | 2018-10-28 09:19 | CM.DPC ---
Addendum entered by Neda Willis LPN 10/28/18 17:46: Met with pt earlier today. Updated her on the acceptance by [facility]/Anisa. Pt expresses relief that she is staying on and that ALVA Anguiano listened to her concerns re her pain. Original Note: DCP: continued: spoke with ortho ALVA Anguiano this morning after he met with pt. He reports her pain persists, he is starting a steroid today. She will not d/c today; perhaps will be ready tomorrow. [facility] at this point does have a bed for pt and have updated Anisa/snf admissions, re above plan.
[2018-10-28 09:25] VITALS: BP 126/57; PULSE 63; RESP 16; TEMP 36.6; O2SAT 98
[2018-10-28] MEDS: DEXAMETHASONE 4 MG TABLET PO ×3 (10:15→22:49)
[2018-10-28 11:34] VITALS: BP 115/70; PULSE 70; RESP 16; TEMP 36.1; O2SAT 96
--- NOTE | 2018-10-28 13:19 | PC.NURSE ---
Day Shift- Pt reported having pain issues overnight into this morning. Pain plan discussed with ALVA Oneill this AM around 0800. New order obtained for Dexamethasone scheduled Q8hr. Also pt stated she didn't feel comfortable discharging today with pain issues and would like to at least discharge tomorrow. Upon re-assessment, pt stated that after the dose of dexamethasone, her pain to left thigh and back decreased slightly. Thus far prn Tramadol given X1 and Oxycodone prn X1. Pt OOB using FWW and SBA. Sat in chair for breakfast and pain was too much, she was assisted back to bed and in the chair for a total of 30mins. Pt has not had a BM since prior to surgery. MOM prn given at 0810. Pt had a large soft/formed BM on BSC, then 2nd BM was soft/loose.
--- NOTE | 2018-10-28 14:32 | OT.IP.TRT ---
Current Diagnoses Scoliosis, unspecified (10/21/18) Spinal stenosis, lumbar region with neurogenic claudication (10/21/18) Surgery Performed Operation Date: 10/21/18 07:45 Actual Procedures p L1-2, L2-3, L3-4, L4-5 Anterior Instrumented Fusion, L5-S1 Posterior Instrumented Fusion w/ Bone Graft - Timbo Goldberg MD Operation Date: 10/23/18 07:45 Actual Procedures p T10-L1,L1-2,L2-3,L3-4,L4-5, L5-S1 Posterior Instru. Fusion w/bone graft - Timbo Goldberg MD Occupational Therapy Treatment Note M2 OT-IP Current Condition Start: 10/22/18 11:39 Freq: Status: Active Protocol: Document 10/25/18 09:48 CCC (Rec: 10/25/18 10:09 [email or web address] [id number]) Occupational Therapy Current Condition Current Condition Evaluation Date 10/25/18 Treatment Diagnosis Lumbar Stenosis with radiculopathy Diagnosis Onset Date 10/21/18 Post Operative Precautions Lumbar Precautions Log Roll No Twisting Limit Bending Lifting Restriction of 10 lbs Gait Belt above Incisional Area Abdominal Surgery Precautions Log Roll Lifting Restrictions Gait Belt above Incisional Area M3 OT- IP Subjective and Pain Start: 10/22/18 11:39 Freq: Status: Active Protocol: Document 10/28/18 14:32 PJM (Rec: 10/28/18 15:31 PJM [id number]) OT- Subjective Occupational Therapy Visit Type Type Treatment Note Visit Start Time 14:05 Visit Stop Time 14:32 Total Visit Minutes 27 Notes Pt's daughter, Janki, here for education this session. Occupational Therapy Visit Comments Patient Comments It still hurts my leg to sit in that chair. Pt now on dexamethasone per RN to assist with L anterior thigh pain. Patient/Caregiver Goals to have less pain and get strong enough to go home after rehab stay OT Pain Assessment Pain When Pain Assessed After Treatment Pain Present Pain Present Pain Reported Location Left Anterior Thigh Intensity 7 Scale Used Numeric (1 - 10) Description Acute Burning Pain Behaviors Facial Grimacing Guarding Restlessness Management Techniques Re-positioning Timing of Activity with Medications M4 OT- IP ADL's Start: 10/22/18 11:39 Freq: Status: Active Protocol: Document 10/28/18 14:32 PJM (Rec: 10/28/18 15:31 PJM [id number]) OT ADL-Grooming General Evaluation Grooming Ability Contact Guard Assistance Areas Needing Assistance Retrieving/Set-up of Grooming Items Face Washing Comments OT Grooming Comments pt stood at sink for 4 min with FWW OT ADL-Oral Care General Eval Oral Care Ability Contact Guard Assistance Areas of Assistance Brushing Teeth Managing Dentures Devices Oral Care Devices Denture [place] Toothbrush Comments Oral Care Comments pt stood at sink for 4 min with FWW. Pt needs mod verbal cues to problem solve unfamiliar sink set up due to low vision. Min cues to sequence task when distracted by conversation. No LOB noted. Provided education re: body mechanics. OT ADL-Dressing Comments OT Dressing Comments Provided education to pt's daughter re resources for sock aid and daughter will order one for pt. obtaining senior oracle dba for pt. OT ADL-Toileting General Evaluation Toileting Ability Standby Assistance Maximum Assistance Devices Toileting Assistive Devices Commode Comments OT Toileting Comments Pt SBA for ani care after urination but unable to reach bottom for ani care after BM. Provided education to pt/ daughter re: types of toilet paper aids and resources to obtain one. Daughter will obtain one for pt. OT ADL-Bathing Devices Bathing Equipment Long Handled Sponge or [place] Shower Chair with Arms Comments OT Bathing Comments Pt's daughter will obtain shower chair for pt. M6 OT- IP Functional Cognition Start: 10/22/18 11:39 Freq: Status: Active Protocol: Document 10/28/18 14:32 PJM (Rec: 10/28/18 15:31 PJM [id number]) Cognitive Factors Limiting Selfcare Function Cognitive Ability Level of Alertness Alert Attention Span Ability Capable of Focused Attention Problem Solving Ability Needs Assist to Identify Solutions Cognitive Comments Cognitive Assessment Comments Pt mildly confused re: sequence of denture care in unfamiliar setting; has difficulty with multi tasking M7 OT- IP Mobility and Balance Start: 10/22/18 11:39 Freq: Status: Active Protocol: Document 10/28/18 14:32 PJM (Rec: 10/28/18 15:31 PJM [id number]) OT-Transfer Assessment Transfers Transfer Ability Contact Guard Assistance Technique Transfer Destination Bedside Commode Chair Transfer Technique Stand Step Pivot Devices Transfer Assistive Devices Gait Belt Front Wheeled Walker OT- Gait Assessment Gait Distance (Feet) 15 Able to Maintain Weight Bearing Status Yes During Gait Assistive Devices Assistive Device Gait Belt Front Wheeled Walker Comments Gait Ability Comments cues not to forget FWW when leaving sink area OT- Balance Assessment Sitting Balance and Reactions Static Sitting Balance Ability Good Dynamic Sitting Balance Ability Good Standing Balance and Reactions Static Standing Balance Ability Good M8 OT- IP Objective Assessments Start: 10/22/18 11:39 Freq: Status: Active Protocol: Document 10/25/18 09:48 CCC (Rec: 10/25/18 10:09 CCC [email or web address]) OT Strength Upper Extremity Strength Assessment Within Functional Limits OT-Muscle Tone Assessment Muscle Tone WNL Yes M9 OT- IP Assessment and Plan Start: 10/22/18 11:39 Freq: Status: Active Protocol: Document 10/28/18 14:32 PJM (Rec: 10/28/18 15:31 PJM [id number]) OT Summary Assessment and Plan Summary OT Impairments Pain Balance Functional Mobility Grooming Dressing Toileting Bathing Toilet Transfers Shower Transfers Assessment Summary LLE pain continues to be primary limiting factor, but pt tolerating more functional activity than yesterday. Pt's supportive daughter will adaptive equipt for pt as needed. Pt making slow, but steady, daily progress and will benefit from short term SNF stay prior to return home. Goals Self-Feeding Goal Standby Assistance Grooming Goal Standby Assistance Dressing Goal Minimal Assistance Toileting Goal Standby Assistance Bathing Goal Contact Guard Assistance Toilet Transfer Goal Standby Assistance Shower Transfer Goal Minimal Assistance Patient/Caregiver Education Goal Demonstrate Post-Op Precautions Caregiver Independent Assisting Patient Days to Meet Goals 6 Frequency of Treatment Frequency Of Treatment Once a Day Treatment Plan OT Treatment Plan ADL Training Functional Cognition Training Functional Mobility Patient/Family Education Discharge Planning Discharge Recommendations OT Discharge Recommendations SNF Rehab Home Equipment Needs shower chair, senior oracle dba, sock aid, toilet paper aid, FWW
--- NOTE | 2018-10-28 15:44 | PT.IPTN ---
Current Diagnoses Scoliosis, unspecified (10/21/18) Spinal stenosis, lumbar region with neurogenic claudication (10/21/18) Surgery Performed Operation Date: 10/21/18 07:45 Actual Procedures p L1-2, L2-3, L3-4, L4-5 Anterior Instrumented Fusion, L5-S1 Posterior Instrumented Fusion w/ Bone Graft - Timbo Goldberg MD Operation Date: 10/23/18 07:45 Actual Procedures p T10-L1,L1-2,L2-3,L3-4,L4-5, L5-S1 Posterior Instru. Fusion w/bone graft - Timbo Goldberg MD Physical Therapy Treatment Note M2 PT-IP Current Condition Start: 10/21/18 15:09 Freq: NEEDED Status: Active Protocol: Document 10/27/18 10:30 HH (Rec: 10/27/18 11:41 HH [id number]) Physical Therapy Current Condition Current Condition Evaluation Date 10/22/18 Treatment Diagnosis s/p L1-2, L2-3, L3-4, L4-5 anterior fusion with cages Onset Date 10/21/18 Precautions Lumbar Precautions Log Roll No Twisting Limit Bending Lifting Restriction of 10 lbs Gait Belt above Incisional Area Abdominal Surgery Precautions Log Roll Lifting Restrictions Gait Belt above Incisional Area Other Precautions require constant BP monitoring due to recent tachycardia and low BP during mobility. M3 PT-IP Subjective Start: 10/21/18 15:09 Freq: NEEDED Status: Active Protocol: Document 10/28/18 14:30 CLB (Rec: 10/28/18 15:44 CLB [id number]) Subjective Physical Therapy Visit Type Type Treatment Note Visit Start Time 14:30 Visit Stop Time 14:55 Total Visit Minutes 25 Number of MOBILE DEVELOPMENT MANAGER Visits 2 Physical Therapy Visit Comments Patient Comments Pt wanting to ambulate and get back to bed. Therapy Pain Assessment Pain When Pain Assessed During Mobility Pain Present Pain Present Pain Reported Location Back Intensity 5 Scale Used Numeric (1 - 10) Description Acute Dull Pain Management Techniques Re-positioning M4 PT-IP Mobility and Gait Start: 10/21/18 15:09 Freq: NEEDED Status: Active Protocol: Document 10/28/18 14:30 CLB (Rec: 10/28/18 15:44 CLB [id number]) PT-Bed Mobility Assessment Rolling Type of Rolling Log Rolling Level of Assist Standby Assistance Sit to Supine Sit to Supine Contact Guard Assistance PT-Transfer Assessment Sit to and From Stand Sit to and from Stand Standby Assistance Use of Upper Extremities Equipment Transfer Assistive Device Gait Belt Front Wheeled Walker Transfers Transfer Destination Bed Toilet Transfer Ability Level of Assist Standby Assistance Comments Mobility Comments Pt able to perform log roll into bed and sit<>stand SBA Gait Assessment Gait Gait Assistance Required: Contact Guard Assist Distance (Feet) 30 Able to Maintain Weight Bearing Status Yes During Gait Assistive Devices Assistive Device Gait Belt Front Wheeled Walker Gait Deviations General Gait Pattern Decreased Stride Length Decreased Feet Clearance Flexed Trunk Factors Limiting Gait Function Factors Limiting Gait Function Decreased Activity Tolerance Decreased Strength Pain Poor Balance Poor Safety Awareness Comments Gait Comments Pt stated pain prevented her from walking farther today. Pt ambulated ~30ft with cues for safety with obstacles. M5 PT-IP Objective Assessments Start: 10/21/18 15:09 Freq: NEEDED Status: Active Protocol: Document 10/27/18 15:45 HH (Rec: 10/27/18 16:35 HH [id number]) Orientation Orientation/Cognition Level of Alertness Alert Gross Range of Motion Upper Extremity ROM Assessment Within Functional Limits Lower Extremity ROM Assessment Within Functional Limits Strength Upper Extremity Strength Assessment Within Functional Limits Lower Extremity Strength Assessment Within Functional Limits Coordination Assessment Gross Coordination Gross Coordination WNL M6 PT-IP Treatment Start: 10/21/18 15:09 Freq: NEEDED Status: Active Protocol: Document 10/28/18 14:30 CLB (Rec: 10/28/18 15:44 CLB [id number]) Physical Therapy Treatment Exercises Exercises Ankle Pumps Gluteal Sets Quad Sets Heel Slides Education Education Provided Precautions Safety M7 PT-IP Assessment and Plan Start: 10/21/18 15:09 Freq: NEEDED Status: Active Protocol: Document 10/28/18 14:30 CLB (Rec: 10/28/18 15:44 CLB [id number]) PT Summary Assessment and Plan Summary Assessment Summary Pt has good awareness of precautions and recalls 3/3 back precautions. Pt is CGA for gait and SBA for bed mobility and transfers. Goals Bed Mobility Goal Standby Assistance Contact Guard Assistance Transfer Goal Standby Assistance Gait Goal Standby Assistance Days to Meet Goals 1 Frequency of Treatment Frequency Of Treatment Twice a Day Treatment Plan Other Recommendations and Next Treatment bed mob supine to sit Focus stand pivot transfer gait training Recommendations To Nursing Amount of Assist Needed 1 Person Assist Discharge Recommendations PT Discharge Recommendations SNF Rehab
--- NOTE | 2018-10-28 22:38 | PC.NURSE ---
LUCIUS shift pt AO. Speech mildly slurred, MD and family aware, they suspect it is from the pain medications. Patient reporting tolerable pain of 5/10 and reports nerve pain in her LLE. Since the start of dexamethasone (this AM), pt reporting a decrease in the nerve pain. Left BRUNA has old, shadowing that has been outlined with marker this AM. Right BRUNA dressing is CDI. BRUNA's are on (green light on). Spoke to daughter, Beverly, regarding DC, which is possible for tomorrow 10/29, daughter is a nurse and wants to make sure provider and care management is aware of the LLE nerve pain before pt leaves the hospital.
[2018-10-29 00:30] VITALS: BP 151/52; PULSE 63; RESP 16; TEMP 36.4; O2SAT 97
[2018-10-29] MEDS: OXYCODONE IR 5 MG TABLET 10 MG PO ×2 (00:32→04:27)
[2018-10-29 04:48] VITALS: BP 126/54; PULSE 61; RESP 20; TEMP 36.4; O2SAT 97
[2018-10-29] MEDS: DEXAMETHASONE 4 MG TABLET PO ×2 (05:37→14:17)
--- NOTE | 2018-10-29 05:55 | PC.NURSE ---
10/29 0555; alert and oriented, VSS on RA, pain stated to be acceptable with current PRN analgesics. x2, 10mg Oxy q4 and tramadol once this shift. Up to bathroom with standby assist, pt considerate to spinal precautions and BRUNA pumps functioning properly.
[2018-10-29] MEDS: TRAMADOL 50 MG TABLET PO ×2 (07:00→15:42)
[2018-10-29 07:25] VITALS: BP 125/60; PULSE 70; RESP 16; TEMP 36.3; O2SAT 98
--- NOTE | 2018-10-29 08:14 | PM.PNPO.1 ---
Subjective Date Patient Seen: 10/29/18 Time Patient Seen: 08:14 Interval history: The leg pain has essentially resolved but still severe pain in the back. She was a 08/27 earlier. Exam Vital Signs (past 8 hours): - 10/29/18 00:30 10/29/18 04:48 Temperature 97.6 F 97.6 F Pulse Rate 63 61 Respiratory Rate 16 20 Blood Pressure 151/52 H 126/54 L Pulse Oximetry 97 97 Oxygen Delivery Method Room Air Oxygen Flow Rate 0 Const Orientation: alert and oriented x3 Back/Spine/Pelvis Other: Dry drainage unchanged. 5/5 motor both lower extremities Objective Labs Result Diagrams: 10/25/18 05:32 10/24/18 05:49 Assessment & Plan Post-op Postoperative Procedures Operation Date: 10/21/18 07:45 Actual Procedures Side Surgeon p L1-2, L2-3, L3-4, L4-5 Anterior Instrumented Fusion, L5-S1 Posterior Instrumented Fusion w/ Bone Graft Timbo Goldberg MD Operation Date: 10/23/18 07:45 Actual Procedures Side Surgeon p T10-L1,L1-2,L2-3,L3-4,L4-5, L5-S1 Posterior Instru. Fusion w/bone graft Timbo Goldberg MD I will switch her back with some Percocet which seemed to be the most effective for her. I think she had been oversedated with fair amount of anesthetic and IV medication but she is not getting enough pain relief with tramadol at this point. Plan to discharge today. Quality VTE Deep Vein Thrombosis/Pulmonary Embolism Present on Admission: No
[2018-10-29] MEDS: hydrOXYzine pamoate 25 MG CAPSULE PO ×2 (08:22→12:26)
[2018-10-29] MEDS: CELECOXIB 200 MG CAPSULE PO (08:22)
[2018-10-29] MEDS: DOCUSATE 100 MG CAPSULE PO (08:24)
[2018-10-29] MEDS: FUROSEMIDE 20 MG TABLET PO (08:24)
[2018-10-29] MEDS: GABAPENTIN 100 MG CAPSULE PO ×2 (08:25→14:17)
[2018-10-29] MEDS: METOPROLOL IR 12.5 MG TABLET PO (08:25)
[2018-10-29] MEDS: SODIUM CHLORIDE 0.9% FLUSH 10 ML IV (08:25)
[2018-10-29 08:30] VITALS: O2SAT 99
[2018-10-29] MEDS: OXYCODONE/ACETAMINOPHEN 5/325 TABLET 2 TAB PO ×2 (08:32→12:26)
--- NOTE | 2018-10-29 09:26 | PC.NURSE ---
Addendum entered by Teagan Morel R.N. 10/29/18 14:08: DC - Angela spoke to [facility] and transport can be arranged, plan to dc at 1715, pt informed. Original Note: Addendum entered by Teagan Morel R.N. 10/29/18 13:52: TSF - no actual DC order entered but MD note says pt may dc today and there is a signed med list, Angela in [place] contacting [facility] and to discuss with ambul as pt will need to be bls and then whether it is possible this afternoon prior to calling 's office, her friends will take her [employer] today to deliver to pt house. Original Note: Addendum entered by Teagan Morel R.N. 10/29/18 12:33: PAIN - states back discomfort returning to 8 on scale 0/10, after nehal lunch, given percocet 5/325mg x2 tabs and 25mg po vistaril. Original Note: Addendum entered by Teagan Morel R.N. 10/29/18 10:29: PAIN/INTEG - pt states that the earlier percocet and vistaril providing improved relief and ready for shower, after, removed ene dsg x2 and the r torso dsg, the back parallel incisions have intact flavio, no redness or drainage, replaced with coversite dsgs, r torso dsg sutures are intact w/o drainage and replaced with 4x4 and op site over. Original Note: AM NOTE - pt is alert, states pain has been increasing and radiating down rle, does have hx sciatica, earlier tramadol has not provided much relief, in this am and changed to percocet x 2 tabs, also discussed with pt and md adding vistaril and with breakfast given pain medication and vistaril, ene dsg l with old serosang along dsg, r cdi, both with green light flashing, per , remove today after shower and replace with coversite, ra 99%, hr 68.
--- NOTE | 2018-10-29 11:29 | PT.IPTN ---
Current Diagnoses Scoliosis, unspecified (10/21/18) Spinal stenosis, lumbar region with neurogenic claudication (10/21/18) Surgery Performed Operation Date: 10/21/18 07:45 Actual Procedures p L1-2, L2-3, L3-4, L4-5 Anterior Instrumented Fusion, L5-S1 Posterior Instrumented Fusion w/ Bone Graft - Timbo Goldberg MD Operation Date: 10/23/18 07:45 Actual Procedures p T10-L1,L1-2,L2-3,L3-4,L4-5, L5-S1 Posterior Instru. Fusion w/bone graft - Timbo Goldberg MD Physical Therapy Treatment Note M2 PT-IP Current Condition Start: 10/21/18 15:09 Freq: NEEDED Status: Active Protocol: Document 10/27/18 10:30 HH (Rec: 10/27/18 11:41 HH [id number]) Physical Therapy Current Condition Current Condition Evaluation Date 10/22/18 Treatment Diagnosis s/p L1-2, L2-3, L3-4, L4-5 anterior fusion with cages Onset Date 10/21/18 Precautions Lumbar Precautions Log Roll No Twisting Limit Bending Lifting Restriction of 10 lbs Gait Belt above Incisional Area Abdominal Surgery Precautions Log Roll Lifting Restrictions Gait Belt above Incisional Area Other Precautions require constant BP monitoring due to recent tachycardia and low BP during mobility. M3 PT-IP Subjective Start: 10/21/18 15:09 Freq: NEEDED Status: Active Protocol: Document 10/29/18 11:20 SA (Rec: 10/29/18 11:29 SA [id number]) Subjective Physical Therapy Visit Type Type Treatment Note Visit Start Time 10:53 Visit Stop Time 11:17 Total Visit Minutes 24 Notes Pt had shower with OT this morning. Number of DISASTER RECOVERY COORDINATOR Visits 3 Physical Therapy Visit Comments Patient Comments Feels tired after shower but agreeable to get up and walk. Therapy Pain Assessment Pain When Pain Assessed During Mobility Pain Present Pain Present Pain Reported Location Left Anterior Thigh Intensity 5 Scale Used Numeric (1 - 10) Pain Management Techniques Modification of Treatment Re-positioning Timing of Activity with Medications M4 PT-IP Mobility and Gait Start: 10/21/18 15:09 Freq: NEEDED Status: Active Protocol: Document 10/29/18 11:20 SA (Rec: 10/29/18 11:29 SA [id number]) PT-Bed Mobility Assessment Rolling Type of Rolling Log Rolling Roll to Right Level of Assist Standby Assistance Supine to Sit Supine to Sit Standby Assistance Sit to Supine Sit to Supine Contact Guard Assistance Scooting Scooting to Edge of Bed Standby Assistance Scooting Up and Down in Bed Contact Guard Assistance PT-Transfer Assessment Sit to and From Stand Sit to and from Stand Standby Assistance Use of Upper Extremities Equipment Transfer Assistive Device Gait Belt Front Wheeled Walker Orthotic/Prosthetic Devices or Brace: No Transfers Transfer Destination Bed Transfer Technique Stand Step Pivot Transfer Ability Level of Assist Standby Assistance Comments Mobility Comments Pt understands spinal precautions and performs log roll technique with out cues. Stand pivot transfers safely with FWW and SBA. Gait Assessment Gait Gait Assistance Required: Contact Guard Assist Distance (Feet) 60 Able to Maintain Weight Bearing Status Yes During Gait Assistive Devices Assistive Device Gait Belt Front Wheeled Walker Gait Deviations General Gait Pattern Decreased Stride Length Decreased Feet Clearance Flexed Trunk Factors Limiting Gait Function Factors Limiting Gait Function Decreased Activity Tolerance Decreased Strength Pain Poor Balance Poor Safety Awareness Comments Gait Comments Pain better controlled today with increased gait ditstance and less guarding, cues for upright posture. Stair Climbing Assessment Comments Stair Climbing Comments did not attempt M5 PT-IP Objective Assessments Start: 10/21/18 15:09 Freq: NEEDED Status: Active Protocol: Document 10/27/18 15:45 HH (Rec: 10/27/18 16:35 HH [id number]) Orientation Orientation/Cognition Level of Alertness Alert Gross Range of Motion Upper Extremity ROM Assessment Within Functional Limits Lower Extremity ROM Assessment Within Functional Limits Strength Upper Extremity Strength Assessment Within Functional Limits Lower Extremity Strength Assessment Within Functional Limits Coordination Assessment Gross Coordination Gross Coordination WNL M6 PT-IP Treatment Start: 10/21/18 15:09 Freq: NEEDED Status: Active Protocol: Document 10/29/18 11:20 SA (Rec: 10/29/18 11:29 SA [id number]) Physical Therapy Treatment Exercises Exercises Ankle Pumps Gluteal Sets Quad Sets Heel Slides Education Education Provided Precautions Safety M7 PT-IP Assessment and Plan Start: 10/21/18 15:09 Freq: NEEDED Status: Active Protocol: Document 10/29/18 11:20 SA (Rec: 10/29/18 11:29 SA [id number]) PT Summary Assessment and Plan Potential Rehabilitation Potential Good Status of Condition at Evaluation Stable Summary Assessment Summary Pt with improving pain levels and plans to d/c to SNF tomorrow. Improving gait and safe transfer ability. Aware of spinial precautions. Frequency of Treatment Frequency Of Treatment Twice a Day Recommendations To Nursing Amount of Assist Needed 1 Person Assist Discharge Recommendations PT Discharge Recommendations SNF Rehab
[2018-10-29 12:00] VITALS: BP 142/58; PULSE 60; RESP 16; TEMP 36.6; O2SAT 98
--- NOTE | 2018-10-29 12:02 | CM.DPC ---
DCP Cont: Spoke with daughter, Beverly, this morning. Stated that patient told her that she was being discharged today, and was being picked up at 11:00. Let her know that this marketing planner had no information regarding this. After speaking to daughter, noted a discharge packet in chart, but no orders. Consulted with Kermit Mi during team rounds regarding this. Spoke to floor nurse, Teagan. Stated that patient is not being discharged due to her increased pain level today. Stated patient could be discharged tomorrow. Spoke to Anisa, admissions at [facility] in [facility], for she initially called regarding status of patient. Stated that patient could be discharged tomorrow. They have a bed for her. Will be a BLS transport. P: DCP to continue to follow closely. Will continue to update Sravanthi, daughter, and if patient is discharged tomorrow, will update [facility]. Heather Keen RN/Education Adviser
--- NOTE | 2018-10-29 13:31 | OT.IP.TRT ---
Current Diagnoses Scoliosis, unspecified (10/21/18) Spinal stenosis, lumbar region with neurogenic claudication (10/21/18) Surgery Performed Operation Date: 10/21/18 07:45 Actual Procedures p L1-2, L2-3, L3-4, L4-5 Anterior Instrumented Fusion, L5-S1 Posterior Instrumented Fusion w/ Bone Graft - Timbo Goldberg MD Operation Date: 10/23/18 07:45 Actual Procedures p T10-L1,L1-2,L2-3,L3-4,L4-5, L5-S1 Posterior Instru. Fusion w/bone graft - Timbo Goldberg MD Occupational Therapy Treatment Note M2 OT-IP Current Condition Start: 10/22/18 11:39 Freq: Status: Active Protocol: Document 10/25/18 09:48 CCC (Rec: 10/25/18 10:09 [email or web address] [email or web address]) Occupational Therapy Current Condition Current Condition Evaluation Date 10/25/18 Treatment Diagnosis Lumbar Stenosis with radiculopathy Diagnosis Onset Date 10/21/18 Post Operative Precautions Lumbar Precautions Log Roll No Twisting Limit Bending Lifting Restriction of 10 lbs Gait Belt above Incisional Area Abdominal Surgery Precautions Log Roll Lifting Restrictions Gait Belt above Incisional Area M3 OT- IP Subjective and Pain Start: 10/22/18 11:39 Freq: Status: Active Protocol: Document 10/29/18 13:31 PJM (Rec: 10/29/18 15:25 PJM [email or web address]) OT- Subjective Occupational Therapy Visit Type Type Treatment Note Visit Start Time 13:07 Visit Stop Time 13:31 Total Visit Minutes 23 Notes Pt awake in bed;was medicated for pain 40 min ago per RN. Occupational Therapy Visit Comments Patient Comments The doctor told me today might be my worst day, then it should get better. 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 OT Pain Assessment Pain When Pain Assessed During Mobility Location Left Anterior Thigh Intensity 7 Scale Used Numeric (1 - 10) Description Acute Burning M4 OT- IP ADL's Start: 10/22/18 11:39 Freq: Status: Active Protocol: Document 10/29/18 13:31 PJM (Rec: 10/29/18 15:25 PJM [id number]) OT ADL-Grooming General Evaluation Grooming Ability Standby Assistance Areas Needing Assistance Retrieving/Set-up of Grooming Items Face Washing Comments OT Grooming Comments pt stood at sink 3-4 min OT ADL-Oral Care General Eval Oral Care Ability Standby Assistance Areas of Assistance Brushing Teeth Managing Dentures Devices Oral Care Devices Denture [place] Toothbrush Comments Oral Care Comments pt stood at sink 3-4 min OT ADL-Dressing General Eval Lower Body Dressing Ability Standby Assistance Moderate Assistance Areas Needing Assistance Socks Comments OT Dressing Comments pt SBA to doff socks using toes and mod assist to don socks with hard sock aid with verbal/tactile cues needed for low vision M5 OT- IP IADL's Start: 10/22/18 11:39 Freq: Status: Active Protocol: Document 10/25/18 09:48 CCC (Rec: 10/25/18 10:09 CCC [email or web address]) OT-Instrumental Activities of Daily Living Meal Preparation Meal Preparation Comments Pt states prior has been having more trouble to stand to do cooking needs. 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 M6 OT- IP Functional Cognition Start: 10/22/18 11:39 Freq: Status: Active Protocol: Document 10/29/18 13:31 PJM (Rec: 10/29/18 15:25 PJM [id number]) Cognitive Factors Limiting Selfcare Function Cognitive Ability Level of Alertness Alert Cognitive Comments Cognitive Assessment Comments Pt demonstrating better sequencing of oral care today. Pt has better focused attention when not making conversation and fewer persons in room. M7 OT- IP Mobility and Balance Start: 10/22/18 11:39 Freq: Status: Active Protocol: Document 10/29/18 13:31 PJM (Rec: 10/29/18 15:25 PJM [email or web address]) OT- Bed Mobility Assessment Rolling Type of Rolling Roll to Left Level of Assistance Standby Assistance 1 Person Assistance Supine to Sit Supine to Sit Assist Standby Assistance 1 Person Assistance Bedrails Sit to Supine Sit to Supine Assist Standby Assistance 1 Person Assistance Scooting Scooting to Edge of Bed Standby Assistance OT-Transfer Assessment Sit to and From Stand Sit to and from Stand Contact Guard Assistance Transfers Transfer Ability Contact Guard Assistance Technique Transfer Destination Bed Car Transfer Technique Stand Step Pivot Devices Transfer Assistive Devices Gait Belt Front Wheeled Walker OT- Gait Assessment Gait Gait Assistance Required: Contact Guard Assist Distance (Feet) 15 Assistive Devices Assistive Device Gait Belt Front Wheeled Walker Comments Gait Ability Comments pt ambulated to sink,then to chair, then to bed OT- Balance Assessment Sitting Balance and Reactions Static Sitting Balance Ability Good Dynamic Sitting Balance Ability Good Standing Balance and Reactions Static Standing Balance Ability Good Dynamic Standing Balance Ability Fair M8 OT- IP Objective Assessments Start: 10/22/18 11:39 Freq: Status: Active Protocol: Document 10/25/18 09:48 CCC (Rec: 10/25/18 10:09 CCC [email or web address]) OT Strength Upper Extremity Strength Assessment Within Functional Limits OT-Muscle Tone Assessment Muscle Tone WNL Yes M9 OT- IP Assessment and Plan Start: 10/22/18 11:39 Freq: Status: Active Protocol: Document 10/29/18 13:31 PJM (Rec: 10/29/18 15:25 PJM [email or web address]) OT Summary Assessment and Plan Summary OT Impairments Pain Functional Mobility Grooming Dressing Toileting Bathing Toilet Transfers Shower Transfers Progress Towards Goals Slow Progress due to Pain Assessment Summary Pain in L anterior thigh and groin remains the primary factor limiting activity tolerance. Pt stood 3-4 min at sink and tolerated ~10 min in bedside chair then had to go to bed. Pt is most comfortable in side lying in bed. Pt has potential to be indep with lower body dressing with AED, despite low vision, with further practice. D/C plan remains SNF when medically stable and pain controlled. Goals Self-Feeding Goal Standby Assistance Grooming Goal Standby Assistance Dressing Goal Minimal Assistance Toileting Goal Standby Assistance Bathing Goal Contact Guard Assistance Toilet Transfer Goal Standby Assistance Shower Transfer Goal Minimal Assistance Patient/Caregiver Education Goal Demonstrate Post-Op Precautions Caregiver Independent Assisting Patient Days to Meet Goals 5 Frequency of Treatment Frequency Of Treatment Once a Day Treatment Plan OT Treatment Plan ADL Training Functional Cognition Training Functional Mobility Patient/Family Education Discharge Planning Other Treatment Recommendations and Next up to sink and BR, showered Treatment Focus with [employer] on Sat, march d/c to SNF 10/30? Discharge Recommendations OT Discharge Recommendations SNF Rehab Home Equipment Needs shower chair, performance improvement director, sock aid, toilet paper aid, FWW ( Janki nieto, to obtain)
--- NOTE | 2018-10-29 14:32 | CM.DPC ---
DCP Cont: Spoke with Teagan, nurse caring for patient. She checked in chart, patient does have discharge orders, medications were signed. Called and spoke with Anisa in admissions at [facility], [facility]. She stated that they can take patient today. Let her know that this will be BLS transport. Updated Beverly, daughter, and she is aware. 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 Met with patient in room, pleasant, had visitors. Confirmed with patient and nurse Teagan, that she now has better pain control with her Percocet. Filled out BLS form, completed PASSR, and retrieved signed med list and prescriptions, and had Leah fax to [facility]. Retrieved phone number and name of nurse and gave to Teagan, to call report on. Documents are in patient's packet. P: Patient is to be discharged today to [facility] in [facility], and will be going via BLS transport. Gave insurance information to dispatcher as well, face sheet included. Heather Keen RN/Machine Tracer
--- NOTE | 2018-10-29 16:12 | PT.IPTN ---
Current Diagnoses Scoliosis, unspecified (10/21/18) Spinal stenosis, lumbar region with neurogenic claudication (10/21/18) Surgery Performed Operation Date: 10/21/18 07:45 Actual Procedures p L1-2, L2-3, L3-4, L4-5 Anterior Instrumented Fusion, L5-S1 Posterior Instrumented Fusion w/ Bone Graft - Timbo Goldberg MD Operation Date: 10/23/18 07:45 Actual Procedures p T10-L1,L1-2,L2-3,L3-4,L4-5, L5-S1 Posterior Instru. Fusion w/bone graft - Timbo Goldberg MD Physical Therapy Treatment Note M2 PT-IP Current Condition Start: 10/21/18 15:09 Freq: NEEDED Status: Active Protocol: Document 10/27/18 10:30 HH (Rec: 10/27/18 11:41 HH [id number]) Physical Therapy Current Condition Current Condition Evaluation Date 10/22/18 Treatment Diagnosis s/p L1-2, L2-3, L3-4, L4-5 anterior fusion with cages Onset Date 10/21/18 Precautions Lumbar Precautions Log Roll No Twisting Limit Bending Lifting Restriction of 10 lbs Gait Belt above Incisional Area Abdominal Surgery Precautions Log Roll Lifting Restrictions Gait Belt above Incisional Area Other Precautions require constant BP monitoring due to recent tachycardia and low BP during mobility. M3 PT-IP Subjective Start: 10/21/18 15:09 Freq: NEEDED Status: Active Protocol: Document 10/29/18 16:10 SA (Rec: 10/29/18 16:12 SA [id number]) Subjective Physical Therapy Visit Type Type Cancellation Visit Start Time 04:07 Notes Pt very tired after visitors this afternoon. Discharging to SNF in a few minutes, declined PT. M4 PT-IP Mobility and Gait Start: 10/21/18 15:09 Freq: NEEDED Status: Active Protocol: Document 10/29/18 11:20 SA (Rec: 10/29/18 11:29 SA [id number]) PT-Bed Mobility Assessment Rolling Type of Rolling Log Rolling Roll to Right Level of Assist Standby Assistance Supine to Sit Supine to Sit Standby Assistance Sit to Supine Sit to Supine Contact Guard Assistance Scooting Scooting to Edge of Bed Standby Assistance Scooting Up and Down in Bed Contact Guard Assistance PT-Transfer Assessment Sit to and From Stand Sit to and from Stand Standby Assistance Use of Upper Extremities Equipment Transfer Assistive Device Gait Belt Front Wheeled Walker Orthotic/Prosthetic Devices or Brace: No Transfers Transfer Destination Bed Transfer Technique Stand Step Pivot Transfer Ability Level of Assist Standby Assistance Comments Mobility Comments Pt understands spinal precautions and performs log roll technique with out cues. Stand pivot transfers safely with FWW and SBA. Gait Assessment Gait Gait Assistance Required: Contact Guard Assist Distance (Feet) 60 Able to Maintain Weight Bearing Status Yes During Gait Assistive Devices Assistive Device Gait Belt Front Wheeled Walker Gait Deviations General Gait Pattern Decreased Stride Length Decreased Feet Clearance Flexed Trunk Factors Limiting Gait Function Factors Limiting Gait Function Decreased Activity Tolerance Decreased Strength Pain Poor Balance Poor Safety Awareness Comments Gait Comments Pain better controlled today with increased gait ditstance and less guarding, cues for upright posture. Stair Climbing Assessment Comments Stair Climbing Comments did not attempt M5 PT-IP Objective Assessments Start: 10/21/18 15:09 Freq: NEEDED Status: Active Protocol: Document 10/27/18 15:45 (Rec: 10/27/18 16:35 [id number]) Orientation Orientation/Cognition Level of Alertness Alert Gross Range of Motion Upper Extremity ROM Assessment Within Functional Limits Lower Extremity ROM Assessment Within Functional Limits Strength Upper Extremity Strength Assessment Within Functional Limits Lower Extremity Strength Assessment Within Functional Limits Coordination Assessment Gross Coordination Gross Coordination WNL M6 PT-IP Treatment Start: 10/21/18 15:09 Freq: NEEDED Status: Active Protocol: Document 10/29/18 11:20 SA (Rec: 10/29/18 11:29 [id number]) Physical Therapy Treatment Exercises Exercises Ankle Pumps Gluteal Sets Quad Sets Heel Slides Education Education Provided Precautions Safety M7 PT-IP Assessment and Plan Start: 10/21/18 15:09 Freq: NEEDED Status: Active Protocol: Document 10/29/18 11:20 SA (Rec: 10/29/18 11:29 SA [id number]) PT Summary Assessment and Plan Potential Rehabilitation Potential Good Status of Condition at Evaluation Stable Summary Assessment Summary Pt with improving pain levels and plans to d/c to SNF tomorrow. Improving gait and safe transfer ability. Aware of spinial precautions. Frequency of Treatment Frequency Of Treatment Twice a Day Recommendations To Nursing Amount of Assist Needed 1 Person Assist Discharge Recommendations PT Discharge Recommendations SNF Rehab
[2018-10-29] MEDS: OXYCODONE/ACETAMINOPHEN 5/325 TABLET 1 TAB PO (16:32)
[2018-10-29 16:38] VITALS: BP 144/64; PULSE 62; RESP 18; TEMP 36.6; O2SAT 96
--- NOTE | 2018-10-29 16:41 | PC.NURSE ---
Pt discharged from [facility], BLS transport to [facility]. All belongings in room sent with pt. Medicated with one percocet per pt request. Pt denies further questions. Updated vitals taken for transport team/charted.
--- NOTE | 2018-11-04 07:52 | P.DS_ITS ---
History of Present Illness Date Patient Seen: 11/04/18 Time Patient Seen: 07:52 Chief complaint: [id number] Narrative: [age] year old female with intractable pain from stenosis and scoliosis. They had failed conservative management and requested operative intervention. Risks and benefits of surgery were discussed and appropriate consents were obtained. Discharge Providers Date of admission: 10/21/18 06:06 Primary care physician: Samantha Silva MD Consults: 10/21/18 14:10 Consult to Occupational Therapy Evaluate & Treat Comment: Physician Instructions: Evaluate and treat Consult to Physical Therapy Evaluate & Treat Comment: Physician Instructions: Evaluate and Treat 10/23/18 13:29 Consult to Occupational Therapy Evaluate & Treat Comment: Physician Instructions: Evaluate and treat Consult to Physical Therapy Evaluate & Treat Comment: Physician Instructions: Evaluate and Treat 10/25/18 09:35 Consult to Respiratory Therapy Evaluate & Treat Comment: Hypoxic on RA, 1L placed NC Physician Instructions: Evaluate and treat Discharge provider: Sharifa Avalos PA-C Discharge Date: 11/04/18 Summary Discharge Diagnosis: s/p lumbar fusion SVT Back pain (Acute) Cataract fragments in both eyes following surgery (Acute ~1999) Colon cancer (Acute ~2008) DDD (degenerative disc disease) (Acute) DJD (degenerative joint disease) (Acute) Esophageal dysmotility (Acute ~03/2007) Eye anomaly, congenital (Acute) Fractures (Acute ~03/2008) GERD (gastroesophageal reflux disease) (Acute) Globus hystericus (Acute) Hip pain (Acute) History of UTI (Acute) History of hysterectomy (Acute) Hypertension (Acute) IBS (irritable bowel syndrome) (Acute) Knee pain, left (Acute) Legally blind (Acute) Osteoarthritis (Acute) PVC (premature ventricular contraction) (Acute) Sciatica (Acute) Scoliosis of lumbar spine (Acute) Spinal stenosis of lumbar region with neurogenic claudication (Acute) Hospital Course: Theodora was admitted for two stage lumbar fusion with Dr. Goldberg and she consented to procedures. Stage 1: L1-L5 XLIF on 10/21/18. Stage 2: T10-S1 posterior instrumented fusion with bone graft on 10/23/18. Hospitalist was consulted following second surgery as she developed SVT. She was placed on metoprolol BID by hospitalist. Serial labs were obtained. She had a head CT for concerns of slurred speech, and there were no intra-cranial abnormalities found on CT. It was determined patient's speech has been slurred in the past, prior to surgery, and this was not a new condition. She has been slow to work with PT and would benefit from senior living for a short time after discharge. On POD #6 s/p second procedure, patient DCd to [facility] in . Patient should follow up with SNO in 2 weeks' time at previously scheduled appointment, and follow up with her PCP regarding her HR. Exam Vital Signs (past 8 hours): Oxygen Delivery Method Room Air Oxygen Flow Rate 0 Narrative Exam Narrative: See 10/29/18 progress note Objective Labs Result Diagrams: 10/25/18 05:32 10/24/18 05:49 Discharge Plan Discharge Plan Patient Disposition: SNF Transfer to: [facility], [facility] Under care of provider: Facility provider Transportation: Facility vehicle I certify the postop hospital senior living care is medically necessary on a continuing basis for any conditions for which he/ she received care during this hospitalization.: Yes The receiving facility has agreed to accept transfer and provide medical treatment.: Yes Discharge Med Rec/Prescriptions Prescriptions: New sennosides [senna] 8.6 mg Tablet 17.2 mg PO BEDTIME Qty: 0 RF: 0 tramadol 50 mg Tablet 50 mg PO TID PRN (Reason: Pain, Moderate (4-6)) Qty: 15 RF: 0 docusate sodium 100 mg Capsule 100 mg PO BID Qty: 0 RF: 0 gabapentin 100 mg Capsule 100 mg PO TID Qty: 0 RF: 0 Metoprolol Ir [Lopressor] 12.5 mg PO BID Qty: 0 RF: 0 celecoxib [Celebrex] 200 mg Capsule 200 mg PO BID Qty: 60 RF: 0 oxycodone-acetaminophen [Percocet] 5-325 mg tablet 1 tab PO Q4-6H PRN (Reason: pain) Qty: 60 RF: 0 Continue lisinopril 10 mg Tablet 10 mg PO DAILY RF: 0 hydrochlorothiazide 12.5 mg Tablet 12.5 mg PO DAILY RF: 0 diphenhydramine-acetaminophen [Tylenol PM Extra Strength] 25-500 mg Tablet 1 tab PO BEDTIME RF: 0 Discontinued naproxen sodium [Aleve] 220 mg Tablet 220 mg PO BID RF: 0 loperamide [Imodium A-D] 2 mg Tablet 1 mg PO Q2H PRN (Reason: Diarrhea) RF: 0 Follow up/Referrals: Timbo Goldberg MD [Physician] - (Follow up in the office at your previously scheduled post-op appointment.) Samantha Silva MD [Primary Care Provider] - Discharge Health Status Precautions: [place] Provider Discharge Instructions Diet: Diet as Tolerated Activity: weightbearing as tolerated, no twisting/bending/lifting greater than 5lbs Cold/Heat Therapy: Apply ice 20 minutes at a time to surgical site as needed Skin/Wound/Dressing Care Report to your healthcare provider any signs of infection, such as:: chills, fever, night sweats, increased pain, unusual drainage and unusual redness Dressing: Keep dressing clean, dry, and intact. Special Rehabilitation Services Reason for rehabilitation: Post-operative therapy Rehab type: Physical therapy and Occupational therapy Visit Report/Discharge Packet Instructions: DI for Transforaminal Lumbar Interbody Fusion Discharge Data Primary Care Provider: Samantha Silva Attending Provider: Tika Estrada Admit Date/Time: 10/21/18 06:06 Discharges patient from system. Discharge Date/Time: 10/29/18 16:43 Quality VTE Deep Vein Thrombosis/Pulmonary Embolism Present on Admission: No
== END 2018-10-29 16:43 | DRG 453 ==
PROVIDERS: Admitting Provider Orthopaedic Surgery; PCP Family Medicine; Visit Provider Hospitalist
PROC: 0SG00A0 Fusion of Lumbar Vertebral Joint with Interbody Fusion Device, Anterior Approach, Anterior Column, Open Approach (ICD-10-PCS; CPT 22558; principal; 2018-10-21 07:45)
PROC: 0RG7071 Fusion of 2 to 7 Thoracic Vertebral Joints with Autologous Tissue Substitute, Posterior Approach, Posterior Column, Open Approach (ICD-10-PCS; principal; 2018-10-23 07:45)
DX: M41.26 Other idiopathic scoliosis, lumbar region (principal); I21.A1 Myocardial infarction type 2; D62 Acute posthemorrhagic anemia; I47.1 Supraventricular tachycardia; M48.062 Spinal stenosis, lumbar region with neurogenic claudication; I10 Essential (primary) hypertension; D69.6 Thrombocytopenia, unspecified; R47.81 Slurred speech
CPT/HCPCS: 36415; 70450; 71045; 72100; 76001; 80048; 80053; 82550; 82553; 83605; 83735; 84100; 84484; 85014; 85018; 85025; 93005; 93010; 94760; 94762; 97110; 97116; 97163; 97166; 97530; 97535; C1776; J0131; J0330; J0595; J0690; J1100; J1170; J2060; J2250; J2274; J2405; J2704; J2765; J2920; J3010